=== PATIENT | male | born 1985 | race Caucasian/White ===

== ENCOUNTER → 2017-02-18 | Outpatient (CLI) | payer OTHER ==
[~2017-02-18] MED LIST: /METH500TA OR; ALBUTEROL INHALER INH; AMIT10TA2 PO; CETIRIZINE PO; CLON0.5T PO; CREON PO; CRES20TA OR; DULO20CA OR; FLEXERIL PO; LYRICA PO; PSEUDOEPHEDRINE PO; PULMOZYME INH; RELPAX PO; SIMV20TA2 OR; TOPI100T OR; TRAM100T OR; TRAM50TA2 OR; VOLT1GEL EX; ZITHTAB OR; [UNRECOGNIZED DRUG - OTHER] INH; [UNRECOGNIZED DRUG - OTHER] PO
--- NOTE | 2017-02-18 10:22 | REP ---
MR LUMBAR SPINE WITHOUT CONTRAST: HISTORY: Back pain. COMPARISON: 12/19/2011 There is no disc bulge or herniation at the L1-2 level. The L1 nerves exit the neural foramina without compression. A diffuse disc bulge is present at the L2-3 level. There is minimal compression of the thecal sac. The L2 nerve exit the neural foramina without compression. A diffuse disc bulge is present at the L3-4 level. There is minimal compression of the thecal sac. There is hypertrophy of the posterior articulating facets. The L3 nerves exit the neural foramina without compression. A diffuse disc bulge is present at the L4-5 level. There is minimal compression of the thecal sac. There is hypertrophy of the posterior articulating facets. The L4 nerves exit the neural foramina without compression. A diffuse disc bulge is present at the L5-S1 level. There is no thecal sac compression. There is hypertrophy of the posterior articulating facets. The L5 nerves exit the neural foramina without compression. The conus medullaris is normal in appearance terminating at the level of the L1 vertebral body. Normal signal intensity is present in the lumbar intervertebral discs and vertebral bodies. IMPRESSION: 1. Diffuse disc bulges at the L2-3 through L4-5 levels with minimal thecal sac compression. The disc bulge at the L2-3 level is a new finding. 2. Diffuse disc bulge at the L5-S1 level without thecal sac or nerve compression. There is no other significant change.? Signed by Ian Cortez MD 02/18/2017 10:25 A
== END ==
LOC: M RAD 07:31
PROVIDERS: ATTEND Physician Assistant Medical
DX: M51.26 Other intervertebral disc displacement, lumbar region (principal); M51.27 Other intervertebral disc displacement, lumbosacral region

== ENCOUNTER → 2017-03-13 | Outpatient (REF) | payer OTHER ==
[2017-03-13 13:59] LABS: ALBUMIN/GLOBULIN RATIO 1.21 (1.00-1.93); BILIRUBIN,DIRECT 0.1 MG/DL (0.0-0.2); BILIRUBIN,TOTAL 0.4 MG/DL (0.2-1.0); TOTAL PROTEIN 7.3 GM/DL (6.4-8.2)
[2017-03-13 14:04] LABS: BASO % 0.7 % (0.0-1.0); EOS # 0.1 K/mm3 (0.0-0.50); EOS % 1.4 % (0.0-3.0); LARGE UNSTAINED CELL # 0.2 K/mm3 (0.0-0.4); LYMPH # 2.5 K/mm3 (1.5-4.5); LYMPH % 33.7 % (24.0-44.0); MEAN CORPUSCULAR HEMOGLOBIN 31.2 pg (27.0-33.0); MEAN CORPUSCULAR HGB CONC 35.4 g/dl (32.0-36.5); MEAN CORPUSCULAR VOLUME 88.1 fl (80.0-96.0); MONO # 0.3 K/mm3 (0.0-0.8); MONO % 4.2 % (0.0-5.0); NEUTROPHILS # 4.3 K/mm3 (1.8-7.7); PLATELET COUNT, AUTOMATED 216 k/mm3 (150-450); WHITE BLOOD COUNT 7.4 K/mm3 (4.0-10.0)
[2017-03-13 14:10] LABS: ALBUMIN/GLOBULIN RATIO 1.25 (1.00-1.93); ALKALINE PHOSPHATASE 79 U/L (45-117); ALT/SGPT 73 U/L (12-78); ANION GAP 8 MEQ/L (8-16); AST/SGOT 29 U/L (15-37); BILIRUBIN,TOTAL 0.4 MG/DL (0.2-1.0); BLOOD UREA NITROGEN 14 MG/DL (7-18); CALCIUM LEVEL 8.5 MG/DL (8.5-10.1); CARBON DIOXIDE LEVEL 27 MEQ/L (21-32); CHLORIDE LEVEL 105 MEQ/L (98-107); CREATININE FOR GFR 0.88 MG/DL (0.70-1.30); FREE T4 0.93 NG/DL (0.76-1.46); GLOMERULAR FILTRATION RATE > 60.0 (>60); GLUCOSE, FASTING 83 MG/DL (70-105); POTASSIUM SERUM 4.3 MEQ/L (3.5-5.1); SODIUM LEVEL 140 MEQ/L (136-145); TOTAL PROTEIN 7.2 GM/DL (6.4-8.2)
== END ==
LOC: M SFHCPLAZ 10:58
PROVIDERS: ATTEND Physician Assistant Medical
DX: E78.2 Mixed hyperlipidemia (principal)

== ENCOUNTER → 2017-04-16 | Outpatient (REF) | payer OTHER ==
[~2017-04-16] MED LIST changes: +AMIT25TA PO; +ASPI81TA85 PO; +ATOR1TAB21 PO; +AZIT250T8 PO; +BUPR150T3 PO; +CICL0.7739; +FLUTISP; +KALY150T; +LIDO5TD TD; +LISI-542 PO; +MELO15TA4 PO; +NORCOTAB PO; +OMEP20CA3 PO; +PREG25CA PO; +PROAAER10 INH; +PULM1SOL INH; +TERB250T12; +TERB250T12 PO; +TIZA2TA PO; +ZOFR4TAB3 PO
== END ==
LOC: M SFHCPLAZ 11:12
PROVIDERS: ATTEND Physician Assistant Medical
DX: L73.9 Follicular disorder, unspecified (principal)

== ENCOUNTER → 2017-04-28 | Outpatient (REF) | payer OTHER | LOC: M SFHCPLAZ 11:32 | PROVIDERS: ATTEND Physician Assistant Medical | DX: L83 Acanthosis nigricans (principal); R23.4 Changes in skin texture ==

== ENCOUNTER → 2017-06-04 | Outpatient (REF) | payer OTHER | LOC: M SFHCPLAZ 12:38 | PROVIDERS: ATTEND Family Medicine | DX: L98.9 Disorder of the skin and subcutaneous tissue, unspecified (principal) ==

== ENCOUNTER → 2017-07-03 | Outpatient (REF) | payer OTHER ==
[2017-07-03 13:06] LABS: ALBUMIN/GLOBULIN RATIO 1.25 (1.00-1.93); BILIRUBIN,DIRECT 0.1 MG/DL (0.0-0.2); BILIRUBIN,TOTAL 0.3 MG/DL (0.2-1.0); TOTAL PROTEIN 7.2 GM/DL (6.4-8.2)
== END ==
LOC: M SFHCPLAZ 10:08
PROVIDERS: ATTEND Physician Assistant Medical
DX: I10 Essential (primary) hypertension (principal)

== ENCOUNTER 2017-07-18 15:33 | Emergency (ER) | payer OTHER ==
[~2017-07-18] VITALS: Ht 182.9 cm; Wt 138.6 kg
[~2017-07-18 15:33] MED LIST changes: -AMIT25TA PO; -ASPI81TA85 PO; -ATOR1TAB21 PO; -AZIT250T8 PO; -BUPR150T3 PO; -CICL0.7739; -FLUTISP; -KALY150T; -LIDO5TD TD; -LISI-542 PO; -MELO15TA4 PO; -NORCOTAB PO; -OMEP20CA3 PO; -PREG25CA PO; -PROAAER10 INH; -PULM1SOL INH; -TERB250T12; -TERB250T12 PO; -TIZA2TA PO; -ZOFR4TAB3 PO
[2017-07-18] MEDS ORDERED: MELO15TA4 PO (15:49)
[2017-07-18] MEDS ORDERED: LISI-542 PO (15:49)
[2017-07-18] MEDS ORDERED: CICL0.7739 (15:49)
[2017-07-18] MEDS ORDERED: TIZA2TA PO (15:49)
[2017-07-18] MEDS ORDERED: ATOR1TAB21 PO (15:49)
[2017-07-18] MEDS ORDERED: BUPR150T3 PO (15:49)
[2017-07-18] MEDS ORDERED: AMIT25TA PO (15:49)
[2017-07-18] MEDS ORDERED: PREG25CA PO (15:49)
[2017-07-18] MEDS ORDERED: TERB250T12 (15:49)
[2017-07-18] MEDS ORDERED: NS 1,000 ML IV ONE (18:15)
[2017-07-18] MEDS ORDERED: KETOROLAC 30 MG/ML VIAL (J1885) IV ONE (18:15)
[2017-07-18] MEDS ORDERED: ONDANSETRON 4MG/2ML VIAL (J2405) IV ONE (18:30)
[2017-07-18 18:56] LABS: BASO % 0.3 % (0.0-1.0); EOS # 0.1 10^3/uL (0.0-0.50); EOS % 0.8 % (0.0-3.0); IMMATURE GRANULOCYTE % 0.9 % (0-0); LYMPH # 2.4 10^3/uL (1.5-4.5); LYMPH % 21.1 % (24.0-44.0); MEAN CORPUSCULAR HEMOGLOBIN 30.5 pg (27.0-33.0); MEAN CORPUSCULAR HGB CONC 34.7 g/dl (32.0-36.5); MONO # 0.9 10^3/uL (0.0-0.8); MONO % 8.1 % (0.0-5.0); NEUTROPHILS % 68.8 % (36.0-66.0); PLATELET COUNT, AUTOMATED 225 10^3/uL (150-450); RED CELL DISTRIBUTION WIDTH 13.2 % (11.5-14.5); WHITE BLOOD COUNT 11.6 10^3/uL (4.0-10.0)
--- NOTE | 2017-07-18 19:10 | REPUSA ---
HISTORY: -RUQ PAIN. TECHNIQUE: Right upper quadrant ultrasound. FINDINGS: Liver is borderline enlarged with increased echogenic texture consistent with fatty liver, with no focal pathologic liver mass seen. No ascites is seen. Gallbladder and biliary tree are normal with no gallstones seen. Hines sign was negative. Gallblad alayna wall thickness measures 2 mm and common bile duct measures 2.8 mm. Pancreas is not well seen because of bowel gas. Right kidney is normal and measures 14.3 x 7.1 x 6.7 cm with no mass, calculus, or hydronephrosis seen. IMPRESSION: 1. Borderline hepatomegaly with hepatic steatosis, without focal liver mass or ascites s een. 2. The remainder of the right upper quadrant ultrasound examination is normal. .
[2017-07-18 19:19] LABS: ALBUMIN 3.9 GM/DL (3.2-5.2); ALBUMIN/GLOBULIN RATIO 1.15 (1.00-1.93); ALKALINE PHOSPHATASE 70 U/L (45-117); ALT/SGPT 49 U/L (12-78); AMYLASE 643 U/L (25-115); ANION GAP 7 MEQ/L (8-16); AST/SGOT 19 U/L (15-37); BILIRUBIN,DIRECT < 0.1 MG/DL (0.0-0.2); BILIRUBIN,TOTAL 0.3 MG/DL (0.2-1.0); BLOOD UREA NITROGEN 17 MG/DL (7-18); CALCIUM LEVEL 8.7 MG/DL (8.5-10.1); CARBON DIOXIDE LEVEL 28 MEQ/L (21-32); CHLORIDE LEVEL 103 MEQ/L (98-107); CREATININE FOR GFR 1.05 MG/DL (0.70-1.30); GLOMERULAR FILTRATION RATE > 60.0 (>60); GLUCOSE, FASTING 79 MG/DL (70-105); POTASSIUM SERUM 4.3 MEQ/L (3.5-5.1); SODIUM LEVEL 138 MEQ/L (136-145); TOTAL PROTEIN 7.3 GM/DL (6.4-8.2)
[2017-07-18] MEDS ORDERED: ISOVUE-370 76% 100ML VIAL (Q9967) As Ordered ONE (19:44)
[2017-07-18 19:53] VITALS: BP 122/67
[2017-07-18 20:08] LABS: CHOLESTEROL LEVEL 265 MG/DL (< 200); TRIGLYCERIDES LEVEL 300 MG/DL (<150)
[2017-07-18] MEDS ORDERED: LIDO5TD TD (20:35)
[2017-07-18] MEDS ORDERED: PROAAER10 INH (20:35)
[2017-07-18] MEDS ORDERED: AZIT250T8 PO (20:35)
[2017-07-18] MEDS ORDERED: FLUTISP (20:35)
[2017-07-18] MEDS ORDERED: ASPI81TA85 PO (20:35)
[2017-07-18] MEDS ORDERED: OMEP20CA3 PO (20:35)
[2017-07-18] MEDS ORDERED: ZOFR4TAB3 PO (20:57)
[2017-07-18] MEDS ORDERED: NORCOTAB PO (20:57)
[2017-07-18] MEDS ORDERED: NORCO 5/325MG TABLET (BULK FOR ED) PO ONE (21:00)
--- NOTE | 2017-07-19 07:27 | ED PDOC ---
Post-Departure Follow-Up radiology report faxed to essie Pardo Sarah MD Jul 19, 2017 07:27
--- NOTE | 2017-07-19 08:07 | ECGEPIP ---
Stationary ECG Study 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
--- NOTE | 2017-07-19 09:17 | REP ---
PA and lateral chest: Comparison is 11/15/2012. The lung patterson are clear. The cardiac size is normal The matthias, mediastinum, and bony thorax are unremarkable. Impression: Negative PA and lateral chest. There is a metallic device superimposed over the inferior cervical spine. No Signed by Alex Kaplan MD 07/19/2017 08:32 A
--- NOTE | 2017-07-19 14:59 | REP ---
Clinical: Upper abdominal pain. Pancreatitis. Technique: Axial contrast enhanced images from the lung bases to the pubic symphysis using 100 ml Isovue 370 intravenous contrast material with coronal and sagittal re-formations. Findings: Subtle peripancreatic inflammatory stranding surrounds the head/uncinate process and adjacent duodenum. The pancreas demonstrates normal homogeneous enhancement without evidence for necrosis or infarction. No peripancreatic pseudocyst, fluid collection or abscess identified. The gallbladder and biliary system appear normal. Mild hepatic steatosis suggested without focal hepatic lesion. Spleen, bilateral adrenal glands and kidneys are normal. The enteric system is without obstruction or acute inflammatory process. No oval terminal ileum and appendix identified in the right lower quadrant. Sigmoid diverticulosis noted without acute diverticulitis. Pelvis demonstrates normal bladder and age appropriate prostate/seminal vesicles. Small fat containing left inguinal hernia noted. No ascites. No free air. No significant retroperitoneal or intraperitoneal adenopathy. Abdominal aorta and vasculature appears normal. Surrounding musculoskeletal structures are intact. Lung bases are clear. Impression: 1. Findings suggest mild acute pancreatitis/duodenitis. 2. Hepatic steatosis without focal hepatic lesion. 3. Normal appearance of the gallbladder by CT evaluation. 4. Scattered sigmoid diverticula without acute diverticulitis. Signed by Ranjan Flores MD 07/19/2017 02:50 P
[2017-07-19] MEDS ORDERED: PULM1SOL INH (18:58)
[2017-07-19] MEDS ORDERED: KALY150T (18:58)
[2017-07-19] MEDS ORDERED: TERB250T12 PO (18:58)
== END 2017-07-18 21:12 | disposition home or self-care (01) ==
LOC: M ED 15:33
DX: R10.13 Epigastric pain (principal); K85.90 Acute pancreatitis without necrosis or infection, unspecified; E78.00 Pure hypercholesterolemia, unspecified; I10 Essential (primary) hypertension; G47.33 Obstructive sleep apnea (adult) (pediatric); Z79.899 Other long term (current) drug therapy; Z79.51 Long term (current) use of inhaled steroids
CPT/HCPCS: 71020; 74177; 76705; 80048; 80076; 81001; 82150; 82465; 82550; 82553; 83690; 84478; 85025; 93005; 96361; 96374; 96375; 99284; J1885; J2405; Q9967

== ENCOUNTER 2017-07-19 18:35 | Emergency (ER) | payer OTHER ==
[~2017-07-19] VITALS: Ht 180.3 cm; Wt 138.6 kg
[~2017-07-19 18:35] MED LIST changes: +AMIT25TA PO; +ASPI81TA85 PO; +ATOR1TAB21 PO; +AZIT250T8 PO; +BUPR150T3 PO; +CICL0.7739; +FLUTISP; +LIDO5TD TD; +LISI-542 PO; +MELO15TA4 PO; +NORCOTAB PO; +OMEP20CA3 PO; +PREG25CA PO; +PROAAER10 INH; +TERB250T12; +TIZA2TA PO; +ZOFR4TAB3 PO
[2017-07-19] MEDS ORDERED: PULM1SOL INH (18:58)
[2017-07-19] MEDS ORDERED: TERB250T12 PO (18:58)
[2017-07-19] MEDS ORDERED: KALY150T (18:58)
[2017-07-19] MEDS ORDERED: KETOROLAC 30 MG/ML VIAL (J1885) IV ONE (19:30)
[2017-07-19] MEDS ORDERED: ONDANSETRON 4MG/2ML VIAL (J2405) IV ONE (19:30)
[2017-07-19 19:44] LABS: BASO % 0.4 % (0.0-1.0); EOS # 0.1 10^3/uL (0.0-0.50); IMMATURE GRANULOCYTE % 0.7 % (0-0); LYMPH # 1.9 10^3/uL (1.5-4.5); LYMPH % 22.6 % (24.0-44.0); MEAN CORPUSCULAR HEMOGLOBIN 29.9 pg (27.0-33.0); MEAN CORPUSCULAR HGB CONC 34.1 g/dl (32.0-36.5); MEAN CORPUSCULAR VOLUME 87.7 fl (80.0-96.0); MONO # 0.6 10^3/uL (0.0-0.8); MONO % 7.1 % (0.0-5.0); NEUTROPHILS # 5.8 10^3/uL (1.8-7.7); NEUTROPHILS % 68.2 % (36.0-66.0); PLATELET COUNT, AUTOMATED 200 10^3/uL (150-450); RED CELL DISTRIBUTION WIDTH 13.2 % (11.5-14.5); WHITE BLOOD COUNT 8.4 10^3/uL (4.0-10.0)
[2017-07-19 20:13] LABS: ALBUMIN/GLOBULIN RATIO 1.33 (1.00-1.93); ALKALINE PHOSPHATASE 68 U/L (45-117); ALT/SGPT 41 U/L (12-78); AMYLASE 331 U/L (25-115); ANION GAP 7 MEQ/L (8-16); AST/SGOT 15 U/L (15-37); BILIRUBIN,DIRECT 0.2 MG/DL (0.0-0.2); BILIRUBIN,TOTAL 0.6 MG/DL (0.2-1.0); BLOOD UREA NITROGEN 8 MG/DL (7-18); CALCIUM LEVEL 8.4 MG/DL (8.5-10.1); CARBON DIOXIDE LEVEL 30 MEQ/L (21-32); CHLORIDE LEVEL 102 MEQ/L (98-107); CREATININE FOR GFR 1.02 MG/DL (0.70-1.30); GLOMERULAR FILTRATION RATE > 60.0 (>60); GLUCOSE, FASTING 78 MG/DL (70-105); POTASSIUM SERUM 4.1 MEQ/L (3.5-5.1); SODIUM LEVEL 139 MEQ/L (136-145)
[2017-07-19 20:55] VITALS: BP 113/69
== END 2017-07-19 20:56 | disposition home or self-care (01) ==
LOC: M ED 18:35
DX: K85.90 Acute pancreatitis without necrosis or infection, unspecified (principal)
CPT/HCPCS: 80048; 80076; 82150; 83690; 85025; 96374; 96375; 99284; J1885; J2405

== ENCOUNTER → 2017-07-22 | Outpatient (REF) | payer OTHER ==
[~2017-07-22] MED LIST changes: +KALY150T; +PULM1SOL INH; +TERB250T12 PO
[2017-07-22 16:16] LABS: ALBUMIN 3.9 GM/DL (3.2-5.2); ALBUMIN/GLOBULIN RATIO 1.26 (1.00-1.93); ALKALINE PHOSPHATASE 71 U/L (45-117); ALT/SGPT 55 U/L (12-78); AMYLASE 107 U/L (25-115); ANION GAP 7 MEQ/L (8-16); AST/SGOT 28 U/L (15-37); BILIRUBIN,TOTAL 0.4 MG/DL (0.2-1.0); BLOOD UREA NITROGEN 6 MG/DL (7-18); CALCIUM LEVEL 9.5 MG/DL (8.5-10.1); CARBON DIOXIDE LEVEL 31 MEQ/L (21-32); CHLORIDE LEVEL 103 MEQ/L (98-107); CREATININE FOR GFR 1.02 MG/DL (0.70-1.30); GLOMERULAR FILTRATION RATE > 60.0 (>60); GLUCOSE, FASTING 102 MG/DL (70-105); POTASSIUM SERUM 4.4 MEQ/L (3.5-5.1); SODIUM LEVEL 141 MEQ/L (136-145)
[2017-07-22 16:30] LABS: BASO % 0.5 % (0.0-1.0); EOS # 0.1 10^3/uL (0.0-0.50); EOS % 1.7 % (0.0-3.0); IMMATURE GRANULOCYTE % 1.1 % (0-0); LYMPH # 2.1 10^3/uL (1.5-4.5); LYMPH % 28.2 % (24.0-44.0); MEAN CORPUSCULAR HEMOGLOBIN 30.3 pg (27.0-33.0); MEAN CORPUSCULAR HGB CONC 34.3 g/dl (32.0-36.5); MEAN CORPUSCULAR VOLUME 88.3 fl (80.0-96.0); MONO # 0.6 10^3/uL (0.0-0.8); MONO % 8.4 % (0.0-5.0); NEUTROPHILS # 4.5 10^3/uL (1.8-7.7); NEUTROPHILS % 60.1 % (36.0-66.0); PLATELET COUNT, AUTOMATED 237 10^3/uL (150-450); RED CELL DISTRIBUTION WIDTH 12.9 % (11.5-14.5); WHITE BLOOD COUNT 7.5 10^3/uL (4.0-10.0)
== END ==
LOC: M SFHCPLAZ 13:47
PROVIDERS: ATTEND Physician Assistant Medical
DX: K85.90 Acute pancreatitis without necrosis or infection, unspecified (principal)

== ENCOUNTER → 2017-09-30 | Outpatient (REF) | payer OTHER ==
[2017-09-30 20:16] LABS: LIPASE 238 U/L (73-393)
== END ==
LOC: M SFHCPLAZ 15:37
DX: K85.90 Acute pancreatitis without necrosis or infection, unspecified (principal)
CPT/HCPCS: 83690

== ENCOUNTER → 2018-02-10 | Outpatient (CLI) | payer OTHER | LOC: M PAIN 11:15 | DX: M53.3 Sacrococcygeal disorders, not elsewhere classified (principal); G62.9 Polyneuropathy, unspecified; G89.29 Other chronic pain; G43.109 Migraine with aura, not intractable, without status migrainosus; F32.9 Major depressive disorder, single episode, unspecified; F41.9 Anxiety disorder, unspecified; F43.20 Adjustment disorder, unspecified; J30.89 Other allergic rhinitis; R25.1 Tremor, unspecified; F17.220 Nicotine dependence, chewing tobacco, uncomplicated; R06.83 Snoring; Z79.899 Other long term (current) drug therapy; Z88.8 Allergy status to other drugs, medicaments and biological substances | CPT/HCPCS: G0463 ==

== ENCOUNTER → 2018-03-22 | Outpatient (CLI) | payer OTHER ==
[~2018-03-22] MED LIST changes: -/METH500TA OR; -ALBUTEROL INHALER INH; -AMIT10TA2 PO; -AMIT25TA PO; -ASPI81TA85 PO; -ATOR1TAB21 PO; -AZIT250T8 PO; +BUPIVACAINE HCL 0.25% 30 ML VIAL As Ordered; -BUPR150T3 PO; -CETIRIZINE PO; -CICL0.7739; -CLON0.5T PO; -CREON PO; -CRES20TA OR; -DULO20CA OR; -FLEXERIL PO; -FLUTISP; +ISOVUE-M 300 61% 15ML VIAL (Q9967) As Ordered; -KALY150T; -LIDO5TD TD; +LIDOCAINE 1% SDV INJ 30 ML VIAL As Ordered; -LISI-542 PO; -LYRICA PO; -MELO15TA4 PO; -NORCOTAB PO; -OMEP20CA3 PO; -PREG25CA PO; -PROAAER10 INH; -PSEUDOEPHEDRINE PO; -PULM1SOL INH; -PULMOZYME INH; -RELPAX PO; -SIMV20TA2 OR; -TERB250T12; -TERB250T12 PO; -TIZA2TA PO; -TOPI100T OR; -TRAM100T OR; -TRAM50TA2 OR; +TRIAMCINOLONE ACETONIDE SUSP 40 MG/ML VIAL (J3301) As Ordered; -VOLT1GEL EX; -ZITHTAB OR; -ZOFR4TAB3 PO; -[UNRECOGNIZED DRUG - OTHER] INH; -[UNRECOGNIZED DRUG - OTHER] PO; +diazePAM 5 MG TAB As Ordered; +oxyCODONE 5MG TAB As Ordered
== END ==
LOC: M PAIN 08:30
DX: G89.29 Other chronic pain (principal); M46.1 Sacroiliitis, not elsewhere classified; G43.119 Migraine with aura, intractable, without status migrainosus; F32.89 Other specified depressive episodes; F41.9 Anxiety disorder, unspecified; J30.9 Allergic rhinitis, unspecified; F17.290 Nicotine dependence, other tobacco product, uncomplicated; Z79.899 Other long term (current) drug therapy; Z88.8 Allergy status to other drugs, medicaments and biological substances
CPT/HCPCS: J3301

== ENCOUNTER → 2018-05-12 | Outpatient (CLI) | payer OTHER | LOC: M PAIN 10:45 | DX: M53.3 Sacrococcygeal disorders, not elsewhere classified (principal); G62.9 Polyneuropathy, unspecified; G43.709 Chronic migraine without aura, not intractable, without status migrainosus; F32.9 Major depressive disorder, single episode, unspecified; F41.9 Anxiety disorder, unspecified; E84.9 Cystic fibrosis, unspecified; R25.1 Tremor, unspecified; Z88.8 Allergy status to other drugs, medicaments and biological substances | CPT/HCPCS: G0463 ==

== ENCOUNTER → 2018-07-16 | Outpatient (CLI) | payer OTHER | LOC: M PAIN 08:45 | DX: M47.27 Other spondylosis with radiculopathy, lumbosacral region (principal); G89.29 Other chronic pain; G43.109 Migraine with aura, not intractable, without status migrainosus; F32.89 Other specified depressive episodes; F41.9 Anxiety disorder, unspecified; R25.1 Tremor, unspecified; F17.220 Nicotine dependence, chewing tobacco, uncomplicated; Z79.891 Long term (current) use of opiate analgesic; Z79.899 Other long term (current) drug therapy; Z88.8 Allergy status to other drugs, medicaments and biological substances | CPT/HCPCS: G0463 ==

== ENCOUNTER → 2018-07-30 | Outpatient (CLI) | payer OTHER ==
[~2018-07-30] MED LIST changes: -diazePAM 5 MG TAB As Ordered; -oxyCODONE 5MG TAB As Ordered
== END ==
LOC: M PAIN 13:00
DX: G89.29 Other chronic pain (principal); M47.816 Spondylosis without myelopathy or radiculopathy, lumbar region; M47.817 Spondylosis without myelopathy or radiculopathy, lumbosacral region; G43.909 Migraine, unspecified, not intractable, without status migrainosus; F32.9 Major depressive disorder, single episode, unspecified; F41.9 Anxiety disorder, unspecified; J30.9 Allergic rhinitis, unspecified; F17.220 Nicotine dependence, chewing tobacco, uncomplicated; E66.01 Morbid (severe) obesity due to excess calories; Z68.42 Body mass index [BMI] 45.0-49.9, adult; Z79.899 Other long term (current) drug therapy; Z79.891 Long term (current) use of opiate analgesic; Z88.8 Allergy status to other drugs, medicaments and biological substances; Z86.69 Personal history of other diseases of the nervous system and sense organs
CPT/HCPCS: J3301

== ENCOUNTER → 2018-08-26 | Outpatient (CLI) | payer OTHER | LOC: M PAIN 09:45 | DX: M47.27 Other spondylosis with radiculopathy, lumbosacral region (principal); G43.909 Migraine, unspecified, not intractable, without status migrainosus; F32.9 Major depressive disorder, single episode, unspecified; F41.9 Anxiety disorder, unspecified; J30.9 Allergic rhinitis, unspecified; F17.220 Nicotine dependence, chewing tobacco, uncomplicated; E66.01 Morbid (severe) obesity due to excess calories; Z68.41 Body mass index [BMI] 40.0-44.9, adult; Z79.899 Other long term (current) drug therapy; Z88.8 Allergy status to other drugs, medicaments and biological substances | CPT/HCPCS: G0463 ==

== ENCOUNTER → 2018-11-16 | Outpatient (CLI) | payer OTHER ==
[~2018-11-16] MED LIST changes: +/METH500TA OR; +ALBUTEROL INHALER INH; +AMIT10TA2 PO; +AMIT25TA PO; +ASPI81TA85 PO; +ATOR1TAB21 PO; +AZIT-10 PO; -BUPIVACAINE HCL 0.25% 30 ML VIAL As Ordered; +BUPR150T3 PO; +CETIRIZINE PO; +CICL0.7739; +CLON0.5T PO; +CREON PO; +CRES20TA OR; +DULO20CA OR; +FLEXERIL PO; +FLUTISP; -ISOVUE-M 300 61% 15ML VIAL (Q9967) As Ordered; +KALY150T; +LIDO5TD TD; -LIDOCAINE 1% SDV INJ 30 ML VIAL As Ordered; +LISI-542 PO; +LYRICA PO; +MELO15TA28 PO; +NORCOTAB PO; +OMEP20CA3 PO; +PREG25CA PO; +PROAAER10 INH; +PSEUDOEPHEDRINE PO; +PULM1SOL INH; +PULMOZYME INH; +RELPAX PO; +SIMV20TA2 OR; +TERB250T12; +TERB250T12 PO; +TIZA2TA PO; +TOPI100T OR; +TRAM100T OR; +TRAM50TA2 OR; -TRIAMCINOLONE ACETONIDE SUSP 40 MG/ML VIAL (J3301) As Ordered; +VOLT1GEL EX; +ZITHTAB OR; +ZOFR4TAB14 PO; +[UNRECOGNIZED DRUG - OTHER] INH; +[UNRECOGNIZED DRUG - OTHER] PO
--- NOTE | 2018-11-29 00:57 | ECWPNPC ---
PATIENT NAME: KRYSTLE LOONEY : 1985 GENDER: MALE VISIT DATE: 11/16/2018 DISCHARGE DATE: 11/16/18 1611 VISIT LOCKED DATE TIME: PHYSICIAN: MARINA ALLISON RESOURCE: MARINA ALLISON REASON FOR APPOINTMENT 1. 6-8WKS HISTORY OF PRESENT ILLNESS HISTORY OF PRESENT ILLNESS: HERE FOR F/UOF CHRONIC LOW BACK PAIN.PAIN ANG ESCALATED OVER THE PAST MONTH.RATING PAIN VAS 4-9/10.DESCRIBES PAIN CONSTANT ACHING WITH INTERMITTENT STABBING. PAIN THE PATIENT DESCRIBES THE PAIN... FALL RISK SCREENING: SCREENING : NO FALLS IN THE PAST YEAR. CURRENT MEDICATIONS TAKING LIPITOR 20 MG TABLET 1 TABLET ORALLY ONCE A DAY TAKING [facility] FLUTICASONE PROPIONATE 50 MCG/ACT SUSPENSION 1 SPRAY IN EACH NOSTRIL NASALLY ONCE A DAY TAKING KALYDECO 150 MG TABLET 1 TABLET ORALLY TWICE DAILY TAKING TIZANIDINE HCL 2 MG TABLET 1 TABLET NEEDED - TAKES 1/2 TABLET DAILY ORALLY THREE TIMES A DAY TAKING LISINOPRIL 5 MG TABLET DIRECTED ORALLY DAILY TAKING ZITHROMAX 250 MG TABLET 1 TABLET ORALLY ONCE A DAY TAKING HIBICLENS 4 % LIQUID 1 CAPFUL WHEN SHOWER ALL OVER BODY, SCALP EXTERNALLY DAILY TAKING ALBUTEROL SULFATE HFA 108 (90 BASE) MCG/ACT AEROSOL SOLUTION 2 PUFFS INHALATION EVERY 4-6 HOURS NEEDED TAKING LIDOCAINE 5 % PATCH 1 PATCH TO INTACT SKIN REMOVE AFTER 12 HOURS EXTERNALLY ONCE A DAY 12 HRS ON AND 12 HRS OFF TAKING ALEVE 220 MG TABLET 1 TABLET WITH FOOD OR MILK NEEDED ORALLY EVERY 12 HRS TAKING WRIST SPLINT RIGHT WRIST NEEDED TAKING ACCUTANE 40 MGS 1 TAB ORAL DAILY TAKING FLUOXETINE HCL 10 MG CAPSULE 1 CAPSULE IN THE MORNING ORALLY ONCE A DAY TAKING LYRICA 200 MG CAPSULE 1 CAPSULE ORALLY BID MDD2 TAKING MULTI VITAMIN W/D-3 - TABLET 2 TABLETS ORALLY ONCE A DAY DISCONTINUED VOLTAREN 1 % GEL GEL EXTERNALLY ONCE A DAY NEEDED DISCONTINUED WRIST SPLINT/COCK-UP/RIGHT L - MISCELLANEOUS DIRECTED _ BEFORE BEDTIME, NOTES: DUPLICATE DISCONTINUED WRIST SPLINT/COCK-UP/LEFT L - MISCELLANEOUS DIRECTED RIGHT WRIST BEFORE BEDTIME DISCONTINUED CLINDAMYCIN PHOS & CLEANSER 1 % KIT EXTERNALLY DIRECTED DISCONTINUED MOBIC 15 MG TABLET 1 TABLET ORALLY DAILY DISCONTINUED CLINDAMYCIN HCL 150 MG CAPSULE 2 CAPSULES ORALLY EVERY 8 HRS DISCONTINUED IBUPROFEN 200 MG TABLET 1 TABLET WITH FOOD OR MILK NEEDED ORALLY THREE TIMES A DAY DISCONTINUED CLINDAMYCIN HCL 300 MG CAPSULE 1 CAPSULE ORALLY EVERY 8 HRS MEDICATION LIST REVIEWED AND RECONCILED WITH THE PATIENT PAST MEDICAL HISTORY CLASSIC MIGRAINE WITH AURA ATYPICAL DEPRESSIVE DISORDER/ANXIETY/ADJUSTMENT DISORDER ATTENTION DEFICIT DISORDER WITHOUT HYPERACTIVITY CERVICAL RADICULOPATHY/NEURITIS C5-6( SINCE 2007 ON DISABILITY) CHRONIC BACK PAIN CARPAL TUNNEL SYNDROME - LEFT HAND ALLERGIC RHINITIS 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 TO LINEZOLIDE AND CLINDAMYCIN ONLY 2016 PANCREATITIS ALLERGIES AMITRIPTYLINE HCL: EXCESSIVE SOMNOLENCE: SIDE EFFECTS SURGICAL HISTORY DISC REPLACED C5-6 2008 BILATERAL INGUINAL HERNIA REPAIR 1989 CARPAL TUNNEL REPAIR LEFT 04/2018 FAMILY HISTORY FATHER: ALIVE 62 YRS, NO KNOWN MEDICAL PROBLEMS MOTHER: ALIVE 60 YRS, HYPOGLYCEMIA, DEPRESSION,, DIAGNOSED WITH PSYCHIATRIC CONDITIONS SIBLINGS: BRO- KIDNEY PROBLEM PATERNAL GRAND FATHER: , UNKNOWN PATERNAL GRAND MOTHER: , STROKE MATERNAL GRAND FATHER: , HEART ATTACK MULTIPLE, CKD, PROSTATE CANCER, DM TYOE 2 MATERNAL GRAND MOTHER: , PANCREATIC CANCER MATERNAL UNCLE: HTN MATERNAL AUNT: DM, 1 BROTHER(S) , 2 SISTER(S) . SOCIAL HISTORY GENERAL: TOBACCO USE ARE YOU A:USES TOBACCO IN OTHER FORMS ADDITIONAL FINDINGS: TOBACCO USERCHEWS TOBACCO SMOKING CESSATION INFORMATION GIVEN11/16/2018 VAPORNO E-CIGARETTENO BMI CARE GOAL FOLLOW-UP ABOVE NORMAL BMI FOLLOW-UPEXERCISE PROMOTION: STRENGTH TRAINING ABOVE NORMAL BMI FOLLOW-UPEXERCISE PROMOTION: STRENGTH TRAINING ALCOHOL SCREENING DID YOU HAVE A DRINK CONTAINING ALCOHOL IN THE PAST YEAR?YES POINTS2 INTERPRETATIONNEGATIVE DID YOU HAVE A DRINK CONTAINING ALCOHOL IN THE PAST YEAR?YES DID YOU HAVE A DRINK CONTAINING ALCOHOL IN THE PAST YEAR?YES POINTS2 POINTS2 INTERPRETATIONNEGATIVE INTERPRETATIONNEGATIVE DID YOU HAVE A DRINK CONTAINING ALCOHOL IN THE PAST YEAR?YES POINTS2 INTERPRETATIONNEGATIVE HOW OFTEN DID YOU HAVE A DRINK CONTAINING ALCOHOL IN THE PAST YEAR?MONTHLY OR LESS (1 POINT) HOW MANY DRINKS DID YOU HAVE ON A TYPICAL DAY WHEN YOU WERE DRINKING IN THE PAST YEAR?3 OR 4 (1 POINT) HOW OFTEN DID YOU HAVE SIX OR MORE DRINKS ON ONE OCCASION IN THE PAST YEAR?NEVER (0 POINTS) RECREATIONAL DRUG USE DRUG USE? NONE DRUG USE? NONE CAFFEINE CAFFEINE USE?NO CAFFEINE USE?NO SEXUAL HX HAD SEX IN THE LAST 12 MONTHS (VAGINAL, ORAL, OR ANAL)?YES HAD SEX IN THE LAST 12 MONTHS (VAGINAL, ORAL, OR ANAL)?YES WITHWOMEN ONLY WITHWOMEN ONLY HAVE YOU EVER HAD AN STD?NO HAVE YOU EVER HAD AN STD?NO HAD SEX IN THE LAST 12 MONTHS (VAGINAL, ORAL, OR ANAL)?YES WITHWOMEN ONLY HAVE YOU EVER HAD AN STD?NO HIV / HEP-C SCREENING HIV TEST OFFERED TO PATIENT:YES DATE OFFERED:03/03/2017 TEST ACCEPTED:NO HEP-C TEST OFFERED TO PATIENT:YES DATE OFFERED:03/03/2017 REASON:PATIENT DECLINED TEST ACCEPTED:NO REASON:PATIENT DECLINED HIV TEST OFFERED TO PATIENT:YES DATE OFFERED:03/03/2017 TEST ACCEPTED:NO HEP-C TEST OFFERED TO PATIENT:YES DATE OFFERED:03/03/2017 REASON:PATIENT DECLINED TEST ACCEPTED:NO REASON:PATIENT DECLINED SIKHISM [id number] RELIGIOUS LANGUAGE LANGUAGES SPOKEN:BULGARIAN EDUCATION BACHELOR- MATH, BACHELOR- MATH, BACHELOR- MATH, BACHELOR- MATH, BACHELOR- MATH, BACHELOR- MATH. LEARNING BARRIERS / SPECIAL NEEDS CHANGE FROM LAST VISIT?NO BARRIERS TO LEARNING?NO HEARING IMPAIRED?NO VISION IMPAIRED?YES :CORRECTIVE LENSES COGNITIVELY IMPAIRED?NO READINESS TO LEARN?YES LEARNING PREFERENCES?NO LEARNING CAPABILITIES PRESENT?YES EMOTIONAL BARRIERS?NO SPECIAL DEVICES?NO HAZARDOUS MATERIAL SPECIALIST NEEDED?NO DOMESTIC VIOLENCE DO YOU FEEL SAFE IN YOUR ENVIRONMENT?YES OCCUPATION: [employer], MOVED BACK FROM [employer] WORKED IN [employer], , [employer], MOVED BACK FROM [employer] WORKED IN [employer], . DIET: REGULAR , LOW FAT, LOW CHOLESTEROL, CARBOHYDRATE CONTROLLED, REGULAR , LOW FAT, LOW CHOLESTEROL, CARBOHYDRATE CONTROLLED. EXERCISE: NO REGULAR EXERCISE, WALKS, NO REGULAR EXERCISE, WALKS. MARITAL STATUS: , . OTHERS AT HOME: SPOUSE, , SPOUSE, . PAIN CLINIC PFS, CLERGY, PUBLIC HEALTH REFERRALS PFS REFERRAL NEEDED?NO CLERGY REFERRAL NEEDED?NO PUBLIC HEALTH REFERRAL NEEDED?NO WAS THE PROVIDER NOTIFIED OF ANY PERTINENT INFO? N/A HAS THE PATIENT BEEN EDUCATED REGARDING HIS/HER PLAN OF CARE?YES HAS THE PATIENT BEEN EDUCATED REGARDING PAIN, THE RISK FOR PAIN, THE IMPORTANCE OF EFFECTIVE PAIN MANAGEMENT, AND THE PAIN ASSESSMENT PROCESS?YES HOUSING: OWNS HOME, , OWNS HOME, . 11/29/18 1015 REVIEWED WITH PT. AD11/16/18 REVIEWED WITH PT. AD. HOSPITALIZATION/MAJOR DIAGNOSTIC PROCEDURE [place] 2008 HERNIA REPAIR 1988 REVIEW OF SYSTEMS REVIEWED BY: PROVIDER: MARINA OSWALD . CONSTITUTIONAL: ANY CHANGE IN YOUR MEDICAL CONDITION? NO . CHILLS NO . FEVER NO . INFECTION: DO YOU HAVE NEW INFECTIONS? NO . DO YOU HAVE HISTORY OF MRSA? NO . MUSCULOSKELETAL: ANY NEW PATTERNS OF PAIN OR NUMBNESS? NO . GASTROENTEROLOGY: ANY NEW CHANGE IN BOWEL CONTROL? NO . GENITOURINARY: ANY NEW CHANGE IN BLADDER CONTROL? NO . IS THERE A CHANCE YOU COULD BE ? NO . HEMATOLOGY/LYMPH: DO YOU TAKE ANY BLOOD THINNERS? (FOR EXAMPLE- COUMADIN, PLAVIX, AGGRENOX, PLATEL, PRADAXA, OR XARELTO) NO . WHEN WAS YOUR LAST DOSE? DATE: TIME: . NEUROLOGY: HAVE YOU FALLEN IN THE PAST 12 MONTHS? NO . ANY NEW EXTREMITY NUMBNESS OR WEAKNESS? NO . CARDIOLOGY: DO YOU HAVE A PACEMAKER OR DEFIBRILLATOR? NO . RESPIRATORY: HAVE YOU BEEN SICK IN THE PAST WEEK? NO . FEVER NO . FLU LIKE SYMPTOMS? NO . COUGH NO . INTEGUMENTARY: DO YOU HAVE ANY RASHES OR OPEN SORES? NO . ALLERGIC/IMMUNO: ARE YOU ALLERGIC TO IV DYE? NO . ANY NEW ALLERGIES? NO . PSYCHIATRIC: DO YOU HAVE THOUGHTS OF HURTING YOURSELF OR SOMEONE ELSE? NO . ARE YOU ABUSED, NEGLECTED, OR IN AN UNSAFE ENVIRONMENT? NO . ENDOCRINOLOGY: ARE YOU DIABETIC? NO . OTHER: DO YOU NEED ANY PRESCRIPTIONS? YES . IF YES, PLEASE LIST: TIZANIDINE . ANY NEW PROBLEMS WITH YOUR MEDICATIONS? NO . WHEN DID YOU LAST EAT? ____ . WHEN DID YOU LAST DRINK? ____ . WHAT DID YOU LAST DRINK? ____ . NAME OF PERSON DRIVING YOU HOME? ____ . DO YOU HAVE ANY OTHER QUESTIONS OR CONCERNS YES, LOW BACK, LEFT HIP AND LEG PAIN HAVE INCREASED. NUEROPATHY IN LEFT THIGH IS BURNING. GREAT TOES ARE TINGLING BILATERALLY . VITAL SIGNS WT 311 LBS, HT 70.5 IN, BMI 43.99 INDEX, BP 129/65 MM HG, HR 76 /MIN, RR 16 /MIN, TEMP 98.2 F, OXYGEN SAT % 96, SAFE IN ENV? (Y/N) Y, REVIEWED BY: AD. EXAMINATION GENERAL EXAMINATION: GENERAL APPEARANCE:AWAKE,ALERT ,PLEAASANT . PSYCHAFFECT NORMAL . LUNGS:LUNG SUÁREZ ARE CLEAR TO AUSCULTATION BILATERALLY. GOOD MOVEMENT OF AIR . HEART:S1, S2 IN A REGULAR RATE AND RHYTHM. NO SIGNIFICANT MURMURS, RUBS OR GALLOPS NOTED . LUMBAR SACRAL SPINEPALPATION: + FOR PAIN OVER L/S SPINE. + FOR PAIN OVER L/S PARASPINALS . NEUROLOGIC EXAM:NORMAL SENSATION LIGHT TOUCH BILAT. LOWER EXTREMITIES . DIAGNOSTIC TESTS REVIEWEDMRI L/S [id number]-REVIEWED. ASSESSMENTS LUMBOSACRAL SPONDYLOSIS WITH RADICULOPATHY - M47.27 (PRIMARY) TREATMENT LUMBOSACRAL SPONDYLOSIS WITH RADICULOPATHY START TRAMADOL HCL TABLET, 50 MG, 1-2 TAB, ORALLY, EVERY 6 HRS MDD4, 30 DAY(S), 60, REFILLS 1 CONTINUE LYRICA CAPSULE, 200 MG, 1 CAPSULE, ORALLY, BID MDD2 NOTES: L4/5 LESI INTRALAMINAR,LUMBAR EPIDURAL INJECTION: RECOVERY AT HOME MATERIAL WAS PRINTED,WHAT IS LUMBAR EPIDURAL INJECTION? MATERIAL WAS PRINTED,LUMBAR EPIDURAL INJECTION: YOUR PROCEDURE MATERIAL WAS PRINTED. PREVENTIVE MEDICINE PAIN CLINIC TEACHING: MEDICATIONS PRINTED INFORMATION ON TRAMADOL GIVEN TO AND REVIEWED WITH PT. AND HE VERBALIZED UNDERSTANDING. AD. PROCEDURE TEACHING PRINTED INFORMATION GIVEN TO AND REVIEWED WITH PT ON EPIDURAL INJECITON ALONG WITH PRE-PROCEDURE INSTRUCTIONS AND PT. VERBALIZED UNDERSTANDING. PT STATED IN THE PAST HE HAS NOT STOPPED ANY MEDICATIONS PRIOR TO THE PROCEDURE. AD. PROCEDURE CODES FA211 ESTABILISHED PATIENT [facility] CHARGE DISPOSITION & COMMUNICATION FOLLOW UP POST (REASON: L4/5 LESI INTRALAMINAR) ELECTRONICALLY SIGNED BY MARGRET WEBER ON 11/28/2018 AT 04:11 PM EST DISCLAIMER : THIS IS A VISIT SUMMARY EXTRACTED FROM THE [employer] CHART. IT IS NOT A COPY OF THE [employer] PROGRESS NOTE. PINA
== END ==
LOC: M PAIN 14:45
PROVIDERS: ATTEND Nurse Practitioner Family
DX: M47.27 Other spondylosis with radiculopathy, lumbosacral region (principal); G89.29 Other chronic pain; G43.109 Migraine with aura, not intractable, without status migrainosus; Z86.59 Personal history of other mental and behavioral disorders; J30.9 Allergic rhinitis, unspecified; E84.9 Cystic fibrosis, unspecified; R25.1 Tremor, unspecified; F17.220 Nicotine dependence, chewing tobacco, uncomplicated; Z88.8 Allergy status to other drugs, medicaments and biological substances; E66.01 Morbid (severe) obesity due to excess calories; Z68.41 Body mass index [BMI] 40.0-44.9, adult; Z79.899 Other long term (current) drug therapy

== ENCOUNTER → 2019-01-18 | Outpatient (CLI) | payer OTHER ==
[~2019-01-18] MED LIST changes: -/METH500TA OR; +CYMB1CAP4 OR; -DULO20CA OR; +HYDR-3715 PO; +METH1TAB40 OR; -NORCOTAB PO
--- NOTE | 2019-01-31 00:13 | ECWPNPC ---
PATIENT NAME: KRYSTLE LOONEY : 1985 GENDER: MALE VISIT DATE: 01/18/2019 DISCHARGE DATE: 01/18/19 1057 VISIT LOCKED DATE TIME: PHYSICIAN: MARINA ALLISON RESOURCE: MARINA ALLISON REASON FOR APPOINTMENT 1. POST PROC HISTORY OF PRESENT ILLNESS HISTORY OF PRESENT ILLNESS: HERE FOR POST PROCEDURE F/U.HAD L4/5 LESI ON 12/07/18.REPORTING RESOLUTION OF LEFT LEG PAIN POST PROCEDURE THAT CONTINUES TODAY.REPORTING 2 WEEKS MARKED REDUCTION IN LOW BACK PAIN.RATING PAIN VAS 4/10.DESCRIBES LOW BACK PAIN CONTINUOUS,ACHING AND SHARP.CONTINUES WITH SIGNIFICANT NEUROPATHY SYMPTOMS IN HANDS AND FEET. PAIN THE PATIENT DESCRIBES THE PAIN... FALL RISK SCREENING: SCREENING :NO FALLS REPORTED IN THE LAST YEAR CURRENT MEDICATIONS TAKING LIPITOR 20 MG TABLET 1 TABLET ORALLY ONCE A DAY TAKING [facility] FLUTICASONE PROPIONATE 50 MCG/ACT SUSPENSION 1 SPRAY IN EACH NOSTRIL NASALLY ONCE A DAY TAKING KALYDECO 150 MG TABLET 1 TABLET ORALLY TWICE DAILY TAKING TIZANIDINE HCL 2 MG TABLET 1 TABLET NEEDED - TAKES 1/2 TABLET DAILY ORALLY THREE TIMES A DAY TAKING LISINOPRIL 5 MG TABLET DIRECTED ORALLY DAILY TAKING ZITHROMAX 250 MG TABLET 1 TABLET ORALLY ONCE A DAY TAKING HIBICLENS 4 % LIQUID 1 CAPFUL WHEN SHOWER ALL OVER BODY, SCALP EXTERNALLY DAILY TAKING ALBUTEROL SULFATE HFA 108 (90 BASE) MCG/ACT AEROSOL SOLUTION 2 PUFFS INHALATION EVERY 4-6 HOURS NEEDED TAKING LIDOCAINE 5 % PATCH 1 PATCH TO INTACT SKIN REMOVE AFTER 12 HOURS EXTERNALLY ONCE A DAY 12 HRS ON AND 12 HRS OFF TAKING WRIST SPLINT RIGHT WRIST NEEDED TAKING ACCUTANE 40 MGS 1 TAB ORAL DAILY TAKING FLUOXETINE HCL 10 MG CAPSULE 1 CAPSULE IN THE MORNING ORALLY ONCE A DAY TAKING MULTI VITAMIN W/D-3 - TABLET 2 TABLETS ORALLY ONCE A DAY TAKING TRAMADOL HCL 50 MG TABLET 1-2 TAB ORALLY EVERY 6 HRS MDD4 TAKING LYRICA 200 MG CAPSULE 1 CAPSULE ORALLY BID MDD2 NOT-TAKING ALEVE 220 MG TABLET 1 TABLET WITH FOOD OR MILK NEEDED ORALLY EVERY 12 HRS MEDICATION LIST REVIEWED AND RECONCILED WITH THE PATIENT PAST MEDICAL HISTORY CLASSIC MIGRAINE WITH AURA ATYPICAL DEPRESSIVE DISORDER/ANXIETY/ADJUSTMENT DISORDER ATTENTION 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 TO LINEZOLIDE AND CLINDAMYCIN ONLY 2016 PANCREATITIS ALLERGIES AMITRIPTYLINE HCL: EXCESSIVE SOMNOLENCE - SIDE EFFECTS SURGICAL HISTORY DISC REPLACED C5-6 2008 BILATERAL INGUINAL HERNIA REPAIR 1989 CARPAL TUNNEL REPAIR LEFT 04/2018 FAMILY HISTORY FATHER: ALIVE 62 YRS, NO KNOWN MEDICAL PROBLEMS MOTHER: ALIVE 60 YRS, HYPOGLYCEMIA, DEPRESSION,, DIAGNOSED WITH PSYCHIATRIC CONDITIONS SIBLINGS: BRO- KIDNEY PROBLEM PATERNAL GRAND FATHER: , UNKNOWN PATERNAL GRAND MOTHER: , STROKE MATERNAL GRAND FATHER: , HEART ATTACK MULTIPLE, CKD, PROSTATE CANCER, DM TYOE 2 MATERNAL GRAND MOTHER: , PANCREATIC CANCER MATERNAL UNCLE: HTN MATERNAL AUNT: DM, 1 BROTHER(S) , 2 SISTER(S) . SOCIAL HISTORY GENERAL: TOBACCO USE ARE YOU A:USES TOBACCO IN OTHER FORMS ADDITIONAL FINDINGS: TOBACCO USERCHEWS TOBACCO SMOKING CESSATION INFORMATION GIVEN01/18/2019 VAPORNO E-CIGARETTENO LATEX QUESTIONNAIRE LATEX ALLERGY : HAVE YOU EVER DEVELOPED ANY TYPE OF REACTION AFTER HANDLING LATEX PRODUCTS SUCH RUBBER GLOVES, CONDOMS, DIAPHRAGMS, BALLOONS, SOCKS, OR UNDERWEAR?NO LATEX ALLERGY : HAVE YOU EVER DEVELOPED ANY TYPE OF REACTION DURING OR AFTER DENTAL APPOINTMENT, VAGINAL/RECTAL EXAMINATION, SURGICAL PROCEDURE, OR ANY OTHER EXPOSURE?NO LATEX RISK : HAVE YOU EVER HAD ANY DIFFICULTY BREATHING OR HIVES AFTER EATING OR HANDLING ANY FRUITS, OR VEGETABLES; SUCH KIWI, BANANAS, STONE FRUITS, OR CHESTNUTSNO LATEX RISK : DO YOU HAVE A PREVIOUS PERSONAL HISTORY OF MORE THAN NINE SURGERIES, SPINA BIFIDA, OR REPEATED CATHERTIZATIONS? NO LATEX RISK : ARE YOU FREQUENTLY EXPOSED TO LATEX PRODUCTS IN YOUR OCCUPATION?NO DATE ASKED : 12/07/2018 BMI CARE GOAL FOLLOW-UP ABOVE NORMAL BMI FOLLOW-UPEXERCISE PROMOTION: STRENGTH TRAINING ALCOHOL SCREENING DID YOU HAVE A DRINK CONTAINING ALCOHOL IN THE PAST YEAR?YES POINTS2 INTERPRETATIONNEGATIVE HOW OFTEN DID YOU HAVE A DRINK CONTAINING ALCOHOL IN THE PAST YEAR?MONTHLY OR LESS (1 POINT) HOW MANY DRINKS DID YOU HAVE ON A TYPICAL DAY WHEN YOU WERE DRINKING IN THE PAST YEAR?3 OR 4 (1 POINT) HOW OFTEN DID YOU HAVE SIX OR MORE DRINKS ON ONE OCCASION IN THE PAST YEAR?NEVER (0 POINTS) RECREATIONAL DRUG USE DRUG USE? NONE CAFFEINE CAFFEINE USE?NO SEXUAL HX HAD SEX IN THE LAST 12 MONTHS (VAGINAL, ORAL, OR ANAL)?: YES, WITH: WOMEN ONLY, HAVE YOU EVER HAD AN STD?: NO, HAD SEX IN THE LAST 12 MONTHS (VAGINAL, ORAL, OR ANAL)?: YES, WITH: WOMEN ONLY, HAVE YOU EVER HAD AN STD?: NO, HAD SEX IN THE LAST 12 MONTHS (VAGINAL, ORAL, OR ANAL)?: YES, WITH: WOMEN ONLY, HAVE YOU EVER HAD AN STD?: NO, HAD SEX IN THE LAST 12 MONTHS (VAGINAL, ORAL, OR ANAL)?: YES, WITH: WOMEN ONLY, HAVE YOU EVER HAD AN STD?: NO, HAD SEX IN THE LAST 12 MONTHS (VAGINAL, ORAL, OR ANAL)?: YES, WITH: WOMEN ONLY, HAVE YOU EVER HAD AN STD?: NO, HAD SEX IN THE LAST 12 MONTHS (VAGINAL, ORAL, OR ANAL)?: YES, WITH: WOMEN ONLY, HAVE YOU EVER HAD AN STD?: NO. HIV / HEP-C SCREENING HIV TEST OFFERED TO PATIENT:YES DATE OFFERED:03/03/2017 TEST ACCEPTED:NO REASON:PATIENT DECLINED HEP-C TEST OFFERED TO PATIENT:YES DATE OFFERED:03/03/2017 TEST ACCEPTED:NO REASON:PATIENT DECLINED CONGREGATION [id number] RESTORATIONISM LANGUAGE LANGUAGES SPOKEN:[place]EN[place]IC EDUCATION BACHELOR- MATH, BACHELOR- MATH, BACHELOR- MATH, BACHELOR- MATH, BACHELOR- MATH, BACHELOR- MATH. LEARNING BARRIERS / SPECIAL NEEDS CHANGE FROM LAST VISIT?NO BARRIERS TO LEARNING?NO HEARING IMPAIRED?NO VISION IMPAIRED?YES :CORRECTIVE LENSES COGNITIVELY IMPAIRED?NO READINESS TO LEARN?YES LEARNING PREFERENCES?NO LEARNING CAPABILITIES PRESENT?YES EMOTIONAL BARRIERS?NO SPECIAL DEVICES?NO SUPERVISOR CARPENTERS NEEDED?NO DOMESTIC VIOLENCE DO YOU FEEL SAFE IN YOUR ENVIRONMENT?YES OCCUPATION: [employer] C[employer], MOVED BACK FROM [facility] WORKED IN [employer], , [employer] CENTER, MOVED BACK FROM [facility] WORKED IN [employer], . DIET: REGULAR , LOW FAT, LOW CHOLESTEROL, CARBOHYDRATE CONTROLLED, REGULAR , LOW FAT, LOW CHOLESTEROL, CARBOHYDRATE CONTROLLED. EXERCISE: NO REGULAR EXERCISE, WALKS, NO REGULAR EXERCISE, WALKS. MARITAL STATUS: , . OTHERS AT HOME: SPOUSE, , SPOUSE, . PAIN CLINIC PFS, CLERGY, PUBLIC HEALTH REFERRALS PFS REFERRAL NEEDED?NO CLERGY REFERRAL NEEDED?NO PUBLIC HEALTH REFERRAL NEEDED?NO WAS THE PROVIDER NOTIFIED OF ANY PERTINENT INFO? N/A HAS THE PATIENT BEEN EDUCATED REGARDING HIS/HER PLAN OF CARE?YES HAS THE PATIENT BEEN EDUCATED REGARDING PAIN, THE RISK FOR PAIN, THE IMPORTANCE OF EFFECTIVE PAIN MANAGEMENT, AND THE PAIN ASSESSMENT PROCESS?YES HOUSING: OWNS HOME, , OWNS HOME, . ADVANCE DIRECTIVE ADVANCE DIRECTIVE DISCUSSED WITH PATIENT:YES PT HAS HCP-- TANIA [phone] FORM IS ON FILE 08/26/18 1015 REVIEWED WITH PT. AD11/16/18 REVIEWED WITH PT. JOSELIN WITH PATIENT 12/07/18 7814 JS. HOSPITALIZATION/MAJOR DIAGNOSTIC PROCEDURE [place], [place] 2008 HERNIA REPAIR 1988 REVIEW OF SYSTEMS REVIEWED BY: PROVIDER: MARINA OSWALD . CONSTITUTIONAL: ANY CHANGE IN YOUR MEDICAL CONDITION? NO . CHILLS NO . FEVER NO . INFECTION: DO YOU HAVE NEW INFECTIONS? NO . DO YOU HAVE HISTORY OF MRSA? NO . MUSCULOSKELETAL: ANY NEW PATTERNS OF PAIN OR NUMBNESS? YES, RIGHT HIP PAIN RESOLVED THEN LBP. PT C/O BILAT HAND AND FOOT PAIN AND BILAT KNEE PAIN . GASTROENTEROLOGY: ANY NEW CHANGE IN BOWEL CONTROL? NO . GENITOURINARY: ANY NEW CHANGE IN BLADDER CONTROL? NO . IS THERE A CHANCE YOU COULD BE ? NO . HEMATOLOGY/LYMPH: DO YOU TAKE ANY BLOOD THINNERS? (FOR EXAMPLE- COUMADIN, PLAVIX, AGGRENOX, PLATEL, PRADAXA, OR XARELTO) NO . WHEN WAS YOUR LAST DOSE? DATE: TIME: . NEUROLOGY: HAVE YOU FALLEN IN THE PAST 12 MONTHS? NO . ANY NEW EXTREMITY NUMBNESS OR WEAKNESS? YES, BILAT HAND AND FOOT PAIN . CARDIOLOGY: DO YOU HAVE A PACEMAKER OR DEFIBRILLATOR? NO . RESPIRATORY: HAVE YOU BEEN SICK IN THE PAST WEEK? NO . FEVER NO . FLU LIKE SYMPTOMS? NO . COUGH NO . INTEGUMENTARY: DO YOU HAVE ANY RASHES OR OPEN SORES? NO . ALLERGIC/IMMUNO: ARE YOU ALLERGIC TO IV DYE? NO . ANY NEW ALLERGIES? NO . PSYCHIATRIC: DO YOU HAVE THOUGHTS OF HURTING YOURSELF OR SOMEONE ELSE? NO . ARE YOU ABUSED, NEGLECTED, OR IN AN UNSAFE ENVIRONMENT? NO . ENDOCRINOLOGY: ARE YOU DIABETIC? NO . OTHER: DO YOU NEED ANY PRESCRIPTIONS? YES, MUSCLE RALAXER . IF YES, PLEASE LIST: ____ . ANY NEW PROBLEMS WITH YOUR MEDICATIONS? NO . WHEN DID YOU LAST EAT? ____ . WHEN DID YOU LAST DRINK? ____ . WHAT DID YOU LAST DRINK? ____ . NAME OF PERSON DRIVING YOU HOME? ____ . DO YOU HAVE ANY OTHER QUESTIONS OR CONCERNS YES, HORRIBLE ACHES IN FEET HANDS AND LOW BACK . VITAL SIGNS WT 316.6 LBS, HT 70.5 IN, BMI 44.78 INDEX, BP 155/78 MM HG, HR 69 /MIN, RR 18 /MIN, TEMP 97.6 F, OXYGEN SAT % 96%, NA INITIALS SC 10:15, REVIEWED BY: EM. EXAMINATION GENERAL EXAMINATION: GENERAL APPEARANCE: AWAKE,ALERT ,PLEAASANT . PSYCH AFFECT NORMAL . LUNGS: LUNG SUÁREZ ARE CLEAR TO AUSCULTATION BILATERALLY. GOOD MOVEMENT OF AIR . HEART: S1, S2 IN A REGULAR RATE AND RHYTHM. NO SIGNIFICANT MURMURS, RUBS OR GALLOPS NOTED . LUMBAR SACRAL SPINEPALPATION:TENDER OVER BILAT. L4/5-L5/S1 LUMBAR FACETS WITH FACET LOADING.. DIAGNOSTIC TESTS REVIEWED MRI L/S SPINE-02/18/17. ASSESSMENTS LUMBOSACRAL SPONDYLOSIS WITH RADICULOPATHY - M47.27 (PRIMARY) NEUROPATHY - G62.9 TREATMENT LUMBOSACRAL SPONDYLOSIS WITH RADICULOPATHY NOTES: BILAT L4/5-L5/S1 DX LFB. [facility]:NEUROPATHIC PAIN HANDS/FEET PROCEDURE CODES FA211 ESTABILISHED PATIENT [facility] FACILITY CHARGE DISPOSITION & COMMUNICATION FOLLOW UP POST (REASON: BILAT L4/5-L5/S1 DX LFB) ELECTRONICALLY SIGNED BY MARGRET WEBER ON 01/30/2019 AT 12:15 PM EDT DISCLAIMER : THIS IS A VISIT SUMMARY EXTRACTED FROM THE [employer] CHART. IT IS NOT A COPY OF THE [employer] PROGRESS NOTE. PINA
== END ==
LOC: M PAIN 10:15
PROVIDERS: ATTEND Nurse Practitioner Family
DX: M47.27 Other spondylosis with radiculopathy, lumbosacral region (principal); G62.9 Polyneuropathy, unspecified; G43.909 Migraine, unspecified, not intractable, without status migrainosus; F17.220 Nicotine dependence, chewing tobacco, uncomplicated; E66.01 Morbid (severe) obesity due to excess calories; Z68.41 Body mass index [BMI] 40.0-44.9, adult; Z88.8 Allergy status to other drugs, medicaments and biological substances; Z79.891 Long term (current) use of opiate analgesic; Z79.899 Other long term (current) drug therapy; Z86.59 Personal history of other mental and behavioral disorders

== ENCOUNTER → 2019-03-10 | Outpatient (CLI) | payer OTHER ==
[~2019-03-10] MED LIST changes: +BUPIVACAINE HCL 0.25% 30 ML VIAL As Ordered ONE; +ISOVUE-M 300 61% 15ML VIAL (Q9967) As Ordered ONE; +LIDOCAINE 1% SDV INJ 30 ML VIAL As Ordered ONE
--- NOTE | 2019-03-11 07:32 | REP ---
Partial lumbar spine series: Two views . History: Injection procedure for pain. 57 seconds of fluoroscopy time is reported. Findings: A sequence of 2 fluoroscopically obtained last image hold procedural spot radiographs of the lumbar spine document needle position and contrast injection associated with injection procedure. Electronically Signed by Dallas Rivera MD 03/10/2019 03:45 P
--- NOTE | 2019-03-19 23:18 | ECWPNPC ---
PATIENT NAME: KRYSTLE LOONEY : 1985 GENDER: MALE VISIT DATE: 03/10/2019 DISCHARGE DATE: 03/10/19 1536 VISIT LOCKED DATE TIME: PHYSICIAN: PRAKASH SMITH MD RESOURCE: PRAKASH SMITH MD REASON FOR APPOINTMENT 1. BILAT L4/5-L5/S1 DX LFB HISTORY OF PRESENT ILLNESS HISTORY OF PRESENT ILLNESS: PAIN THE PATIENT DESCRIBES THE PAIN... FALL RISK SCREENING: SCREENING :NO FALLS REPORTED IN THE LAST YEAR CURRENT MEDICATIONS TAKING LIPITOR 20 MG TABLET 1 TABLET ORALLY ONCE A DAY, NOTES: 03/07/19 TAKING [facility] FLUTICASONE PROPIONATE 50 MCG/ACT SUSPENSION 1 SPRAY IN EACH NOSTRIL NASALLY ONCE A DAY, NOTES: YESTERDAY AM TAKING KALYDECO 150 MG TABLET 1 TABLET ORALLY TWICE DAILY, NOTES: 03/09/19 PM TAKING TIZANIDINE HCL 2 MG TABLET 1 TABLET NEEDED - TAKES 1/2 TABLET DAILY ORALLY THREE TIMES A DAY, NOTES: NONE RECENT TAKING LISINOPRIL 5 MG TABLET DIRECTED ORALLY DAILY, NOTES: 03/07/19 TAKING ZITHROMAX 250 MG TABLET 1 TABLET ORALLY ONCE A DAY, NOTES: 03/09/19 AM TAKING ALBUTEROL SULFATE HFA 108 (90 BASE) MCG/ACT AEROSOL SOLUTION 2 PUFFS INHALATION EVERY 4-6 HOURS NEEDED, NOTES: 2 WEEKS AGO TAKING LIDOCAINE 5 % PATCH 1 PATCH TO INTACT SKIN REMOVE AFTER 12 HOURS EXTERNALLY ONCE A DAY 12 HRS ON AND 12 HRS OFF, NOTES: 2 WEEKS AGO TAKING WRIST SPLINT RIGHT WRIST NEEDED TAKING ACCUTANE 40 MGS 1 TAB ORAL DAILY, NOTES: 1 MONTH AGO TAKING FLUOXETINE HCL 10 MG CAPSULE 1 CAPSULE IN THE MORNING ORALLY ONCE A DAY, NOTES: 03/09/19 AM TAKING MULTI VITAMIN W/D-3 - TABLET 2 TABLETS ORALLY ONCE A DAY, NOTES: 1 MONTH AGO TAKING TRAMADOL HCL 50 MG TABLET 1-2 TAB ORALLY EVERY 6 HRS MDD4, NOTES: 2 WEEKS AGO TAKING LYRICA 200 MG CAPSULE 1 CAPSULE ORALLY BID MDD2, NOTES: 03/09/19PM TAKING MAY HAVE - - TUMERIC 2 CAPSULE NOT-TAKING HIBICLENS 4 % LIQUID 1 CAPFUL WHEN SHOWER ALL OVER BODY, SCALP EXTERNALLY DAILY NOT-TAKING ALEVE 220 MG TABLET 1 TABLET WITH FOOD OR MILK NEEDED ORALLY EVERY 12 HRS MEDICATION LIST REVIEWED AND RECONCILED WITH THE PATIENT PAST MEDICAL HISTORY CLASSIC MIGRAINE WITH AURA ATYPICAL DEPRESSIVE DISORDER/ANXIETY/ADJUSTMENT DISORDER ATTENTION 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 TO LINEZOLIDE AND CLINDAMYCIN ONLY 2016 PANCREATITIS ALLERGIES AMITRIPTYLINE HCL: EXCESSIVE SOMNOLENCE - SIDE EFFECTS SURGICAL HISTORY DISC REPLACED C5-6 2008 BILATERAL INGUINAL HERNIA REPAIR 1989 CARPAL TUNNEL REPAIR LEFT 04/2018 RIGHT CARPAL TUNNEL REPAIR 01/2019 FAMILY HISTORY FATHER: ALIVE 62 YRS, NO KNOWN MEDICAL PROBLEMS MOTHER: ALIVE 60 YRS, HYPOGLYCEMIA, DEPRESSION,, DIAGNOSED WITH PSYCHIATRIC CONDITIONS SIBLINGS: BRO- KIDNEY PROBLEM PATERNAL GRAND FATHER: , UNKNOWN PATERNAL GRAND MOTHER: , STROKE MATERNAL GRAND FATHER: , HEART ATTACK MULTIPLE, CKD, PROSTATE CANCER, DM TYOE 2 MATERNAL GRAND MOTHER: , PANCREATIC CANCER MATERNAL UNCLE: HTN MATERNAL AUNT: DM, 1 BROTHER(S) , 2 SISTER(S) . SOCIAL HISTORY GENERAL: TOBACCO USE ARE YOU A:USES TOBACCO IN OTHER FORMS ADDITIONAL FINDINGS: TOBACCO USERCHEWS TOBACCO SMOKING CESSATION INFORMATION GIVEN01/18/2019 VAPORNO E-CIGARETTENO HIV / HEP-C SCREENING HIV TEST OFFERED TO PATIENT:YES DATE OFFERED:03/03/2017 TEST ACCEPTED:NO REASON:PATIENT DECLINED HEP-C TEST OFFERED TO PATIENT:YES DATE OFFERED:03/03/2017 TEST ACCEPTED:NO REASON:PATIENT DECLINED OTHERS AT HOME: SPOUSE, , SPOUSE,. HOUSING: OWNS HOME, , OWNS HOME,. EDUCATION BACHELOR- MATH, BACHELOR- MATH, BACHELOR- MATH, BACHELOR- MATH, BACHELOR- MATH, BACHELOR- MATH. DIET: REGULAR , LOW FAT, LOW CHOLESTEROL, CARBOHYDRATE CONTROLLED, REGULAR , LOW FAT, LOW CHOLESTEROL, CARBOHYDRATE CONTROLLED. LANGUAGE LANGUAGES SPOKEN:PASHTO DOMESTIC VIOLENCE DO YOU FEEL SAFE IN YOUR ENVIRONMENT?YES BMI CARE GOAL FOLLOW-UP ABOVE NORMAL BMI FOLLOW-UPEXERCISE PROMOTION: STRENGTH TRAINING RECREATIONAL DRUG USE DRUG USE? NONE EXERCISE: NO REGULAR EXERCISE, WALKS, NO REGULAR EXERCISE, WALKS. LEARNING BARRIERS / SPECIAL NEEDS CHANGE FROM LAST VISIT?NO BARRIERS TO LEARNING?NO HEARING IMPAIRED?NO VISION IMPAIRED?YES :CORRECTIVE LENSES COGNITIVELY IMPAIRED?NO READINESS TO LEARN?YES LEARNING PREFERENCES?NO LEARNING CAPABILITIES PRESENT?YES EMOTIONAL BARRIERS?NO SPECIAL DEVICES?NO VICE PRESIDENT QUALITY IMPROVEMENT NEEDED?NO PAIN CLINIC PFS, CLERGY, PUBLIC HEALTH REFERRALS PFS REFERRAL NEEDED?NO CLERGY REFERRAL NEEDED?NO PUBLIC HEALTH REFERRAL NEEDED?NO WAS THE PROVIDER NOTIFIED OF ANY PERTINENT INFO? N/A HAS THE PATIENT BEEN EDUCATED REGARDING HIS/HER PLAN OF CARE?YES HAS THE PATIENT BEEN EDUCATED REGARDING PAIN, THE RISK FOR PAIN, THE IMPORTANCE OF EFFECTIVE PAIN MANAGEMENT, AND THE PAIN ASSESSMENT PROCESS?YES LATEX QUESTIONNAIRE LATEX ALLERGY : HAVE YOU EVER DEVELOPED ANY TYPE OF REACTION AFTER HANDLING LATEX PRODUCTS SUCH RUBBER GLOVES, CONDOMS, DIAPHRAGMS, BALLOONS, SOCKS, OR UNDERWEAR?NO LATEX ALLERGY : HAVE YOU EVER DEVELOPED ANY TYPE OF REACTION DURING OR AFTER DENTAL APPOINTMENT, VAGINAL/RECTAL EXAMINATION, SURGICAL PROCEDURE, OR ANY OTHER EXPOSURE?NO LATEX RISK : HAVE YOU EVER HAD ANY DIFFICULTY BREATHING OR HIVES AFTER EATING OR HANDLING ANY FRUITS, OR VEGETABLES; SUCH KIWI, BANANAS, STONE FRUITS, OR CHESTNUTSNO LATEX RISK : DO YOU HAVE A PREVIOUS PERSONAL HISTORY OF MORE THAN NINE SURGERIES, SPINA BIFIDA, OR REPEATED CATHERTIZATIONS? NO LATEX RISK : ARE YOU FREQUENTLY EXPOSED TO LATEX PRODUCTS IN YOUR OCCUPATION?NO DATE ASKED : 12/07/2018 CAFFEINE CAFFEINE USE?NO ADVANCE DIRECTIVE ADVANCE DIRECTIVE DISCUSSED WITH PATIENT:YES PT HAS HCP-- TANIA [phone] FORM IS ON FILE VOODOO [id number] TAOISM MARITAL STATUS: , . ALCOHOL SCREENING DID YOU HAVE A DRINK CONTAINING ALCOHOL IN THE PAST YEAR?YES POINTS2 INTERPRETATIONNEGATIVE HOW OFTEN DID YOU HAVE A DRINK CONTAINING ALCOHOL IN THE PAST YEAR?MONTHLY OR LESS (1 POINT) HOW MANY DRINKS DID YOU HAVE ON A TYPICAL DAY WHEN YOU WERE DRINKING IN THE PAST YEAR?3 OR 4 (1 POINT) HOW OFTEN DID YOU HAVE SIX OR MORE DRINKS ON ONE OCCASION IN THE PAST YEAR?NEVER (0 POINTS) OCCUPATION: [employer] CENTER, MOVED BACK FROM [facility] [employer] WORKED IN [employer], , [employer], MOVED BACK FROM [facility] [employer] WORKED IN [employer],. SEXUAL HX HAD SEX IN THE LAST 12 MONTHS (VAGINAL, ORAL, OR ANAL)?: YES, WITH: WOMEN ONLY, HAVE YOU EVER HAD AN STD?: NO, HAD SEX IN THE LAST 12 MONTHS (VAGINAL, ORAL, OR ANAL)?: YES, WITH: WOMEN ONLY, HAVE YOU EVER HAD AN STD?: NO, HAD SEX IN THE LAST 12 MONTHS (VAGINAL, ORAL, OR ANAL)?: YES, WITH: WOMEN ONLY, HAVE YOU EVER HAD AN STD?: NO, HAD SEX IN THE LAST 12 MONTHS (VAGINAL, ORAL, OR ANAL)?: YES, WITH: WOMEN ONLY, HAVE YOU EVER HAD AN STD?: NO, HAD SEX IN THE LAST 12 MONTHS (VAGINAL, ORAL, OR ANAL)?: YES, WITH: WOMEN ONLY, HAVE YOU EVER HAD AN STD?: NO, HAD SEX IN THE LAST 12 MONTHS (VAGINAL, ORAL, OR ANAL)?: YES, WITH: WOMEN ONLY, HAVE YOU EVER HAD AN STD?: NO. 08/26/18 1015 REVIEWED WITH PT. AD11/16/18 REVIEWED WITH PT. NIKIAWED WITH PATIENT 12/07/18 1239 JS REVIEWED WITH PT 03/10/19 1416 BV. HOSPITALIZATION/MAJOR DIAGNOSTIC PROCEDURE [place], [place] 2008 HERNIA REPAIR 1988 REVIEW OF SYSTEMS REVIEWED BY: PROVIDER: . CONSTITUTIONAL: ANY CHANGE IN YOUR MEDICAL CONDITION? NO . CHILLS NO . FEVER NO . INFECTION: DO YOU HAVE NEW INFECTIONS? NO . DO YOU HAVE HISTORY OF MRSA? NO . MUSCULOSKELETAL: ANY NEW PATTERNS OF PAIN OR NUMBNESS? NO . GASTROENTEROLOGY: ANY NEW CHANGE IN BOWEL CONTROL? NO . GENITOURINARY: ANY NEW CHANGE IN BLADDER CONTROL? NO . IS THERE A CHANCE YOU COULD BE ? NO . HEMATOLOGY/LYMPH: DO YOU TAKE ANY BLOOD THINNERS? (FOR EXAMPLE- COUMADIN, PLAVIX, AGGRENOX, PLATEL, PRADAXA, OR XARELTO) NO . WHEN WAS YOUR LAST DOSE? DATE: TIME: . NEUROLOGY: HAVE YOU FALLEN IN THE PAST 12 MONTHS? NO . ANY NEW EXTREMITY NUMBNESS OR WEAKNESS? NO . CARDIOLOGY: DO YOU HAVE A PACEMAKER OR DEFIBRILLATOR? NO . RESPIRATORY: HAVE YOU BEEN SICK IN THE PAST WEEK? NO . FEVER NO . FLU LIKE SYMPTOMS? NO . COUGH NO . INTEGUMENTARY: DO YOU HAVE ANY RASHES OR OPEN SORES? NO . ALLERGIC/IMMUNO: ARE YOU ALLERGIC TO IV DYE? NO . ANY NEW ALLERGIES? NO . PSYCHIATRIC: DO YOU HAVE THOUGHTS OF HURTING YOURSELF OR SOMEONE ELSE? NO . ARE YOU ABUSED, NEGLECTED, OR IN AN UNSAFE ENVIRONMENT? NO . ENDOCRINOLOGY: ARE YOU DIABETIC? NO . OTHER: DO YOU NEED ANY PRESCRIPTIONS? NO . IF YES, PLEASE LIST: ____ . ANY NEW PROBLEMS WITH YOUR MEDICATIONS? NO . WHEN DID YOU LAST EAT? 03/09/191999 . WHEN DID YOU LAST DRINK? 03/10/19 0800 . WHAT DID YOU LAST DRINK? PEPSI . NAME OF PERSON DRIVING YOU HOME? TANIA- . DO YOU HAVE ANY OTHER QUESTIONS OR CONCERNS NO . VITAL SIGNS WT 317.2 LBS, HT 70.5 IN, BMI 44.87 INDEX, BP 118/67 MM HG, HR 85 /MIN, RR 18 /MIN, TEMP 99.1 F, OXYGEN SAT % 97%, NA INITIALS SC 13:58, REVIEWED BY: BV. ASSESSMENTS SPONDYLOSIS OF LUMBAR REGION WITHOUT MYELOPATHY OR RADICULOPATHY - M47.816 (PRIMARY) SPONDYLOSIS OF LUMBOSACRAL REGION WITHOUT MYELOPATHY OR RADICULOPATHY - M47.817 PROCEDURES PN LUMBAR FACET BLOCK DIAGNOSTIC PRE PROCEDURE DIAGNOSIS LUMBAR SPONDYLOSIS, LUMBOSACRAL SPONDYLOSIS POST PROCEDURE DIAGNOSIS LUMBAR SPONDYLOSIS, LUMBOSACRAL SPONDYLOSIS PROCEDURE BILATERAL L4-L5 AND BILATERAL L5-S1 FACET BLOCK DIAGNOSTIC NUMBER [address] PRAKASH SMITH OIL FIRE SPECIALIST NONE ANESTHESIA LOCAL PRE PROCEDURE NOTE THE PATIENT WITH HISTORY OF CHRONIC LOW BACK PAIN. I EVALUATED THE PATIENT AND REVIEWED THE CHART. I WENT OVER THE RISKS, ALTERNATIVES, AND BENEFITS ASSOCIATED WITH THIS PROCEDURE. THE PATIENT WOULD LIKE TO PROCEED AND GAVE CONSENT TO PERFORM THE PROCEDURE. AGREED WITH THE PATIENT WE ARE DOING THIS PROCEDURE TO DETERMINE IF THE PATIENT IS A CANDIDATE FOR A RADIOFREQUENCY ABLATION OF THE FACETS JOINTS. THE PATIENT DENIES UNEXPLAINABLE WEIGHT LOSS, FEVER, CHILLS, OR NEW CHANGES IN URINARY OR BOWEL CONTROL DESCRIPTION OF PROCEDURE THE PATIENT WAS BROUGHT TO THE PROCEDURE ROOM AND PLACED IN THE PRONE POSITION. THE LUMBOSACRAL AREA WAS CLEANED WITH CHLORAPREP SOLUTION AND DRAPED ASEPTICALLY. THE PROCEDURE WAS DONE UNDER STERILE CONDITIONS. I CHECKED LATERALITY AND THE LEVEL WHERE THE PROCEDURE WAS GOING TO BE PERFORMED WITH THE PATIENT AND THE SUPPORTING STAFF AT THE MOMENT OF THE TIME OUT IN THE PROCEDURE ROOM. UNDER FLUOROSCOPIC GUIDANCE, TARGETS WERE SELECTED AT THE INTERSECTION OF THE RIGHT AND LEFT TRANSVERSE PROCESS OF L4, L5 AND ALA OF S1 WITH ITS RESPECTIVE SUPERIOR ARTICULAR PROCESS. LIDOCAINE WAS USED TO NUMB THE SKIN AND THE SUBCUTANEOUS TISSUE BELOW IT. SPINAL NEEDLE, 22-GAUGE WAS ADVANCED UNDER FLUOROSCOPIC GUIDANCE AND FOLLOWING PATIENT FEEDBACK UNTIL THE TARGETS WERE REACHED. POSITION OF THE NEEDLES WAS VERIFIED WITH AP AND LATERAL VIEWS. AFTER PROPER POSITION OF THE NEEDLES WAS ACHIEVED, ISOVUE-M DYE 30% 0.1 ML WAS INJECTED AT EACH SITE SHOWING ADEQUATE SPREAD OF THE DYE. THEN A SOLUTION OF 0.4 ML OF BUPIVACAINE 0.25% WAS INJECTED AT EACH SITE. THERE WAS NO EVIDENCE OF BLOOD, PARESTHESIA OR CEREBROSPINAL FLUID DURING THE PROCEDURE. THE PATIENT WAS SENT TO THE RECOVERY ROOM. THE PATIENT WAS MOVING THE EXTREMITIES AND DOING WELL. THERE WAS NO COMPLICATION DURING THE PROCEDURE. FLUOROSCOPY TIME WAS 57 SECONDS POST PROCEDURE NOTE THE PATIENT WILL DOCUMENT HIS PAIN LEVEL AND RESPONSE TO THIS PROCEDURE EVERY 30 MINUTES. THE PATIENT WILL BE SEEN IN A FOLLOW UP IN THE NEXT FEW WEEKS. FURTHER DETERMINATION FOR HIS CASE WILL BE DONE AT THE NEXT VISIT. INSTRUCTIONS WERE GIVEN, QUESTIONS WERE ANSWERED, AND THE PATIENT EXPRESSED UNDERSTANDING AND AGREED WITH THE PLAN. I, JANICE ROCHA, DOCUMENTED THE ABOVE INFORMATION ACTING A SCRIBE FOR DR. SMITH. I HAVE REVIEWED THE ABOVE DOCUMENT, WRITTEN BY JANICE ALCALAIBTara AND I VERIFY THAT IT IS ACCURATE. [facility] FACET BLOCK (PAIN)[id number] PROCEDURE CODES 6045F RADXPS [id number] PXD [id number] INJ PARAVERT F JNT L/S 1 LEV, MODIFIERS: 50 [id number] INJ PARAVERT F JNT L/S 2 LEV, MODIFIERS: 50 DISPOSITION & COMMUNICATION FOLLOW UP 3 WEEKS ELECTRONICALLY SIGNED BY PRAKASH SMITH MD, MD ON 03/19/2019 AT 06:23 PM EDT DISCLAIMER : THIS IS A VISIT SUMMARY EXTRACTED FROM THE [employer] CHART. IT IS NOT A COPY OF THE [employer] PROGRESS NOTE. MTDD
== END ==
LOC: M PAIN 13:45
PROVIDERS: ATTEND Anesthesiology
DX: M47.816 Spondylosis without myelopathy or radiculopathy, lumbar region (principal); M47.817 Spondylosis without myelopathy or radiculopathy, lumbosacral region; F32.9 Major depressive disorder, single episode, unspecified; F41.9 Anxiety disorder, unspecified; F43.20 Adjustment disorder, unspecified; N52.9 Male erectile dysfunction, unspecified; R25.1 Tremor, unspecified; F17.220 Nicotine dependence, chewing tobacco, uncomplicated; E84.9 Cystic fibrosis, unspecified; Q55.4 Other congenital malformations of vas deferens, epididymis, seminal vesicles and prostate; F98.8 Other specified behavioral and emotional disorders with onset usually occurring in childhood and adolescence; Z79.891 Long term (current) use of opiate analgesic; Z79.899 Other long term (current) drug therapy; Z88.8 Allergy status to other drugs, medicaments and biological substances
CPT/HCPCS: 64493; 64494; Q9967

== ENCOUNTER → 2019-04-19 | Outpatient (CLI) | payer OTHER ==
[~2019-04-19] MED LIST changes: -BUPIVACAINE HCL 0.25% 30 ML VIAL As Ordered ONE; -ISOVUE-M 300 61% 15ML VIAL (Q9967) As Ordered ONE; -LIDOCAINE 1% SDV INJ 30 ML VIAL As Ordered ONE; -OMEP20CA3 PO; +OMEP20CA4 PO
--- NOTE | 2019-05-03 02:12 | ECWPNPC ---
PATIENT NAME: KRYSTLE LOONEY : 1985 GENDER: MALE VISIT DATE: 04/19/2019 DISCHARGE DATE: 04/19/19 1043 VISIT LOCKED DATE TIME: PHYSICIAN: MARINA ALLISON RESOURCE: MARINA ALLISON REASON FOR APPOINTMENT 1. POST PROC HISTORY OF PRESENT ILLNESS HISTORY OF PRESENT ILLNESS: HERE FOR POST PROCEDURE F/U.HAD BILAT. L4/5-L5/S1 LUMBAR BLOCK ON 03/10 19.HAD >80% REDUCTION IN PAIN THEN PAIN HAS GRADUALLY INCREASED.REPORTING LEFT SIDE WORSE AREA OF PAIN.RATING PAIN VAS 3/10. PAIN THE PATIENT DESCRIBES THE PAIN... FALL RISK SCREENING: SCREENING :NO FALLS REPORTED IN THE LAST YEAR CURRENT MEDICATIONS TAKING LIPITOR 20 MG TABLET 1 TABLET ORALLY ONCE A DAY TAKING CVS FLUTICASONE PROPIONATE 50 MCG/ACT SUSPENSION 1 SPRAY IN EACH NOSTRIL NASALLY ONCE A DAY TAKING KALYDECO 150 MG TABLET 1 TABLET ORALLY TWICE DAILY TAKING LISINOPRIL 5 MG TABLET DIRECTED ORALLY DAILY TAKING ZITHROMAX 250 MG TABLET 1 TABLET ORALLY ONCE A DAY TAKING ALBUTEROL SULFATE HFA 108 (90 BASE) MCG/ACT AEROSOL SOLUTION 2 PUFFS INHALATION EVERY 4-6 HOURS NEEDED TAKING LIDOCAINE 5 % PATCH 1 PATCH TO INTACT SKIN REMOVE AFTER 12 HOURS EXTERNALLY ONCE A DAY 12 HRS ON AND 12 HRS OFF TAKING WRIST SPLINT RIGHT WRIST NEEDED TAKING ACCUTANE 20 MGS 1 TAB ORAL DAILY TAKING FLUOXETINE HCL 10 MG CAPSULE 1 CAPSULE IN THE MORNING ORALLY ONCE A DAY TAKING MULTI VITAMIN W/D-3 - TABLET 2 TABLETS ORALLY ONCE A DAY TAKING TRAMADOL HCL 50 MG TABLET 1-2 TAB ORALLY EVERY 6 HRS MDD4 TAKING MAY HAVE - - TUMERIC 2 CAPSULE TAKING TIZANIDINE HCL 2 MG TABLET 1 TABLET NEEDED - TAKES 1/2 TABLET DAILY ORALLY FOR SPASMS THREE TIMES A DAY MDD3 TAKING LYRICA 200 MG CAPSULE 1 CAPSULE ORALLY BID MDD2 NOT-TAKING HIBICLENS 4 % LIQUID 1 CAPFUL WHEN SHOWER ALL OVER BODY, SCALP EXTERNALLY DAILY NOT-TAKING ALEVE 220 MG TABLET 1 TABLET WITH FOOD OR MILK NEEDED ORALLY EVERY 12 HRS MEDICATION LIST REVIEWED AND RECONCILED WITH THE PATIENT PAST MEDICAL HISTORY CLASSIC MIGRAINE WITH AURA ATYPICAL DEPRESSIVE DISORDER/ANXIETY/ADJUSTMENT DISORDER ATTENTION 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 TO LINEZOLIDE AND CLINDAMYCIN ONLY 2016 PANCREATITIS ALLERGIES AMITRIPTYLINE HCL: EXCESSIVE SOMNOLENCE - SIDE EFFECTS SURGICAL HISTORY DISC REPLACED C5-6 2008 BILATERAL INGUINAL HERNIA REPAIR 1989 CARPAL TUNNEL REPAIR LEFT 04/2018 RIGHT CARPAL TUNNEL REPAIR 01/2019 FAMILY HISTORY FATHER: ALIVE 62 YRS, NO KNOWN MEDICAL PROBLEMS MOTHER: ALIVE 60 YRS, HYPOGLYCEMIA, DEPRESSION,, DIAGNOSED WITH PSYCHIATRIC CONDITIONS SIBLINGS: BRO- KIDNEY PROBLEM PATERNAL GRAND FATHER: , UNKNOWN PATERNAL GRAND MOTHER: , STROKE MATERNAL GRAND FATHER: , HEART ATTACK MULTIPLE, CKD, PROSTATE CANCER, DM TYOE 2 MATERNAL GRAND MOTHER: , PANCREATIC CANCER MATERNAL UNCLE: HTN MATERNAL AUNT: DM, 1 BROTHER(S) , 2 SISTER(S) . SOCIAL HISTORY GENERAL: TOBACCO USE ARE YOU A:USES TOBACCO IN OTHER FORMS ADDITIONAL FINDINGS: TOBACCO USERCHEWS TOBACCO SMOKING CESSATION INFORMATION GIVEN01/18/2019 VAPORNO E-CIGARETTENO HIV / HEP-C SCREENING HIV TEST OFFERED TO PATIENT:YES DATE OFFERED:03/03/2017 TEST ACCEPTED:NO REASON:PATIENT DECLINED HEP-C TEST OFFERED TO PATIENT:YES DATE OFFERED:03/03/2017 TEST ACCEPTED:NO REASON:PATIENT DECLINED OTHERS AT HOME: SPOUSE, , SPOUSE,. HOUSING: OWNS HOME, , OWNS HOME,. EDUCATION BACHELOR- MATH, BACHELOR- MATH, BACHELOR- MATH, BACHELOR- MATH, BACHELOR- MATH, BACHELOR- MATH. DIET: REGULAR , LOW FAT, LOW CHOLESTEROL, CARBOHYDRATE CONTROLLED, REGULAR , LOW FAT, LOW CHOLESTEROL, CARBOHYDRATE CONTROLLED. LANGUAGE LANGUAGES SPOKEN:MALAY DOMESTIC VIOLENCE DO YOU FEEL SAFE IN YOUR ENVIRONMENT?YES BMI CARE GOAL FOLLOW-UP ABOVE NORMAL BMI FOLLOW-UPEXERCISE PROMOTION: STRENGTH TRAINING RECREATIONAL DRUG USE DRUG USE? NONE EXERCISE: NO REGULAR EXERCISE, WALKS, NO REGULAR EXERCISE, WALKS. LEARNING BARRIERS / SPECIAL NEEDS CHANGE FROM LAST VISIT?NO BARRIERS TO LEARNING?NO HEARING IMPAIRED?NO VISION IMPAIRED?YES :CORRECTIVE LENSES COGNITIVELY IMPAIRED?NO READINESS TO LEARN?YES LEARNING PREFERENCES?NO LEARNING CAPABILITIES PRESENT?YES EMOTIONAL BARRIERS?NO SPECIAL DEVICES?NO SEASONER HAND NEEDED?NO PAIN CLINIC PFS, CLERGY, PUBLIC HEALTH REFERRALS PFS REFERRAL NEEDED?NO CLERGY REFERRAL NEEDED?NO PUBLIC HEALTH REFERRAL NEEDED?NO WAS THE PROVIDER NOTIFIED OF ANY PERTINENT INFO? N/A HAS THE PATIENT BEEN EDUCATED REGARDING HIS/HER PLAN OF CARE?YES HAS THE PATIENT BEEN EDUCATED REGARDING PAIN, THE RISK FOR PAIN, THE IMPORTANCE OF EFFECTIVE PAIN MANAGEMENT, AND THE PAIN ASSESSMENT PROCESS?YES LATEX QUESTIONNAIRE LATEX ALLERGY : HAVE YOU EVER DEVELOPED ANY TYPE OF REACTION AFTER HANDLING LATEX PRODUCTS SUCH RUBBER GLOVES, CONDOMS, DIAPHRAGMS, BALLOONS, SOCKS, OR UNDERWEAR?NO LATEX ALLERGY : HAVE YOU EVER DEVELOPED ANY TYPE OF REACTION DURING OR AFTER DENTAL APPOINTMENT, VAGINAL/RECTAL EXAMINATION, SURGICAL PROCEDURE, OR ANY OTHER EXPOSURE?NO LATEX RISK : HAVE YOU EVER HAD ANY DIFFICULTY BREATHING OR HIVES AFTER EATING OR HANDLING ANY FRUITS, OR VEGETABLES; SUCH KIWI, BANANAS, STONE FRUITS, OR CHESTNUTSNO LATEX RISK : DO YOU HAVE A PREVIOUS PERSONAL HISTORY OF MORE THAN NINE SURGERIES, SPINA BIFIDA, OR REPEATED CATHERIZATIONS? NO LATEX RISK : ARE YOU FREQUENTLY EXPOSED TO LATEX PRODUCTS IN YOUR OCCUPATION?NO DATE ASKED : 12/07/2018 CAFFEINE CAFFEINE USE?NO ADVANCE DIRECTIVE ADVANCE DIRECTIVE DISCUSSED WITH PATIENT:YES PT HAS HCP-- TANIA [phone] FORM IS ON FILE [employer] [id number] ANGLICAN MARITAL STATUS: , . ALCOHOL SCREENING DID YOU HAVE A DRINK CONTAINING ALCOHOL IN THE PAST YEAR?YES POINTS2 INTERPRETATIONNEGATIVE HOW OFTEN DID YOU HAVE A DRINK CONTAINING ALCOHOL IN THE PAST YEAR?MONTHLY OR LESS (1 POINT) HOW MANY DRINKS DID YOU HAVE ON A TYPICAL DAY WHEN YOU WERE DRINKING IN THE PAST YEAR?3 OR 4 (1 POINT) HOW OFTEN DID YOU HAVE SIX OR MORE DRINKS ON ONE OCCASION IN THE PAST YEAR?NEVER (0 POINTS) OCCUPATION: [employer], MOVED BACK FROM [employer] [employer] WORKED IN [place], , [employer], MOVED BACK FROM [employer] [facility] WORKED IN [place],. SEXUAL HX HAD SEX IN THE LAST 12 MONTHS (VAGINAL, ORAL, OR ANAL)?: YES, WITH: WOMEN ONLY, HAVE YOU EVER HAD AN STD?: NO, HAD SEX IN THE LAST 12 MONTHS (VAGINAL, ORAL, OR ANAL)?: YES, WITH: WOMEN ONLY, HAVE YOU EVER HAD AN STD?: NO, HAD SEX IN THE LAST 12 MONTHS (VAGINAL, ORAL, OR ANAL)?: YES, WITH: WOMEN ONLY, HAVE YOU EVER HAD AN STD?: NO, HAD SEX IN THE LAST 12 MONTHS (VAGINAL, ORAL, OR ANAL)?: YES, WITH: WOMEN ONLY, HAVE YOU EVER HAD AN STD?: NO, HAD SEX IN THE LAST 12 MONTHS (VAGINAL, ORAL, OR ANAL)?: YES, WITH: WOMEN ONLY, HAVE YOU EVER HAD AN STD?: NO, HAD SEX IN THE LAST 12 MONTHS (VAGINAL, ORAL, OR ANAL)?: YES, WITH: WOMEN ONLY, HAVE YOU EVER HAD AN STD?: NO. 08/26/18 1015 REVIEWED WITH PT. AD11/16/18 REVIEWED WITH PT. ADREVIEWED WITH PATIENT 12/07/18 1239 JS REVIEWED WITH PT 03/10/19 1416 BVREVIEWED WITH PT 04/19/19 0989 BV. HOSPITALIZATION/MAJOR DIAGNOSTIC PROCEDURE [place], [place] 2008 HERNIA REPAIR 1988 REVIEW OF SYSTEMS REVIEWED BY: PROVIDER: MARINA OSWALD . CONSTITUTIONAL: ANY CHANGE IN YOUR MEDICAL CONDITION? NO . CHILLS NO . FEVER NO . INFECTION: DO YOU HAVE NEW INFECTIONS? NO . DO YOU HAVE HISTORY OF MRSA? NO . MUSCULOSKELETAL: ANY NEW PATTERNS OF PAIN OR NUMBNESS? NO . GASTROENTEROLOGY: ANY NEW CHANGE IN BOWEL CONTROL? NO . GENITOURINARY: ANY NEW CHANGE IN BLADDER CONTROL? NO . IS THERE A CHANCE YOU COULD BE ? NO . HEMATOLOGY/LYMPH: DO YOU TAKE ANY BLOOD THINNERS? (FOR EXAMPLE- COUMADIN, PLAVIX, AGGRENOX, PLATEL, PRADAXA, OR XARELTO) NO . WHEN WAS YOUR LAST DOSE? DATE: TIME: . NEUROLOGY: HAVE YOU FALLEN IN THE PAST 12 MONTHS? NO . ANY NEW EXTREMITY NUMBNESS OR WEAKNESS? NO . CARDIOLOGY: DO YOU HAVE A PACEMAKER OR DEFIBRILLATOR? NO . RESPIRATORY: HAVE YOU BEEN SICK IN THE PAST WEEK? NO . FEVER NO . FLU LIKE SYMPTOMS? NO . COUGH NO . INTEGUMENTARY: DO YOU HAVE ANY RASHES OR OPEN SORES? NO . ALLERGIC/IMMUNO: ARE YOU ALLERGIC TO IV DYE? NO . ANY NEW ALLERGIES? NO . PSYCHIATRIC: DO YOU HAVE THOUGHTS OF HURTING YOURSELF OR SOMEONE ELSE? NO . ARE YOU ABUSED, NEGLECTED, OR IN AN UNSAFE ENVIRONMENT? NO . ENDOCRINOLOGY: ARE YOU DIABETIC? NO . OTHER: DO YOU NEED ANY PRESCRIPTIONS? YES LYRICA . IF YES, PLEASE LIST: ____ . ANY NEW PROBLEMS WITH YOUR MEDICATIONS? NO . WHEN DID YOU LAST EAT? ____ . WHEN DID YOU LAST DRINK? ____ . WHAT DID YOU LAST DRINK? ____ . NAME OF PERSON DRIVING YOU HOME? ____ . DO YOU HAVE ANY OTHER QUESTIONS OR CONCERNS NO . VITAL SIGNS WT 319.6 LBS, HT 70.5 IN, BMI 45.20 INDEX, BP 129/56 MM HG, HR 90 /MIN, RR 18 /MIN, TEMP 96.9 F, OXYGEN SAT % 97%, NA INITIALS AW 0957. EXAMINATION GENERAL EXAMINATION: GENERAL AWAKE,ALERT ,PLEAASANT . PSYCH AFFECT NORMAL . LUNGS: LUNG SUÁREZ ARE CLEAR TO AUSCULTATION BILATERALLY. GOOD MOVEMENT OF AIR . HEART: S1, S2 IN A REGULAR RATE AND RHYTHM. NO SIGNIFICANT MURMURS, RUBS OR GALLOPS NOTED . LUMBAR SACRAL SPINEPALPATION:TENDER OVER BILAT. L4/5-L5/S1 LUMBAR FACETS WITH FACET LOADING L>R. DIAGNOSTIC TESTS REVIEWED MRI L/S SPINE-02/18/17. ASSESSMENTS LUMBOSACRAL SPONDYLOSIS WITH RADICULOPATHY - M47.27 (PRIMARY) TREATMENT LUMBOSACRAL SPONDYLOSIS WITH RADICULOPATHY REFILL LYRICA CAPSULE, 200 MG, 1 CAPSULE, ORALLY, BID MDD2, 30 DAYS, 60, REFILLS 5 NOTES: LEFT L4/5-L5/S1 LFBD #2. PROCEDURE CODES FA211 ESTABILISHED PATIENT [facility] CHARGE DISPOSITION & COMMUNICATION FOLLOW UP POST (REASON: LEFT L4/5-L5/S1 LFBD #2) ELECTRONICALLY SIGNED BY MARGRET WEBER ON 05/02/2019 AT 03:41 PM EDT DISCLAIMER : THIS IS A VISIT SUMMARY EXTRACTED FROM THE [employer] CHART. IT IS NOT A COPY OF THE [employer] PROGRESS NOTE. MTDD
== END ==
LOC: M PAIN 09:30
PROVIDERS: ATTEND Nurse Practitioner Family
DX: M47.27 Other spondylosis with radiculopathy, lumbosacral region (principal); G43.109 Migraine with aura, not intractable, without status migrainosus; Z86.59 Personal history of other mental and behavioral disorders; R25.1 Tremor, unspecified; Z86.19 Personal history of other infectious and parasitic diseases; F17.220 Nicotine dependence, chewing tobacco, uncomplicated; Z88.8 Allergy status to other drugs, medicaments and biological substances; E66.01 Morbid (severe) obesity due to excess calories; Z68.42 Body mass index [BMI] 45.0-49.9, adult; Z79.891 Long term (current) use of opiate analgesic; Z79.899 Other long term (current) drug therapy

== ENCOUNTER → 2019-05-26 | Outpatient (CLI) | payer OTHER ==
[~2019-05-26] MED LIST changes: +BUPIVACAINE HCL 0.25% 30 ML VIAL As Ordered ONE; +ISOVUE-M 200 41% 20ML VIAL (Q9966) As Ordered ONE; +LIDOCAINE 1% SDV INJ 30 ML VIAL As Ordered ONE
--- NOTE | 2019-05-26 14:36 | REP ---
Partial lumbar spine series: Two views . History: Injection procedure for pain. 20 seconds of fluoroscopy time is reported. Findings: A sequence of two fluoroscopically obtained last image hold procedural spot radiographs of the lumbar spine document needle position and contrast injection associated with injection procedure. Electronically Signed by Dallas Rivera MD 05/26/2019 02:27 P
--- NOTE | 2019-06-03 02:09 | ECWPNPC ---
PATIENT NAME: KRYSTLE LOONEY : 1985 GENDER: MALE VISIT DATE: 05/26/2019 DISCHARGE DATE: 05/26/19 1203 VISIT LOCKED DATE TIME: PHYSICIAN: PRAKASH SMITH MD RESOURCE: PRAKASH SMITH MD REASON FOR APPOINTMENT 1. RIGHT L4/5-L5/S1 LFBD # 2 HISTORY OF PRESENT ILLNESS HISTORY OF PRESENT ILLNESS: PAIN THE PATIENT DESCRIBES THE PAIN... FALL RISK SCREENING: SCREENING :NO FALLS REPORTED IN THE LAST YEAR CURRENT MEDICATIONS TAKING LIPITOR 20 MG TABLET 1 TABLET ORALLY ONCE A DAY TAKING CVS FLUTICASONE PROPIONATE 50 MCG/ACT SUSPENSION 1 SPRAY IN EACH NOSTRIL NASALLY ONCE A DAY TAKING KALYDECO 150 MG TABLET 1 TABLET ORALLY TWICE DAILY TAKING LISINOPRIL 5 MG TABLET DIRECTED ORALLY DAILY TAKING ZITHROMAX 250 MG TABLET 1 TABLET ORALLY ONCE A DAY TAKING ALBUTEROL SULFATE HFA 108 (90 BASE) MCG/ACT AEROSOL SOLUTION 2 PUFFS INHALATION EVERY 4-6 HOURS NEEDED TAKING LIDOCAINE 5 % PATCH 1 PATCH TO INTACT SKIN REMOVE AFTER 12 HOURS EXTERNALLY ONCE A DAY 12 HRS ON AND 12 HRS OFF TAKING WRIST SPLINT RIGHT WRIST NEEDED TAKING ACCUTANE 20 MGS 1 TAB ORAL DAILY TAKING FLUOXETINE HCL 10 MG CAPSULE 1 CAPSULE IN THE MORNING ORALLY ONCE A DAY TAKING MULTI VITAMIN W/D-3 - TABLET 2 TABLETS ORALLY ONCE A DAY TAKING TRAMADOL HCL 50 MG TABLET 1-2 TAB ORALLY EVERY 6 HRS MDD4, NOTES: 2 DAYS AGO TAKING MAY HAVE - - TUMERIC 2 CAPSULE TAKING TIZANIDINE HCL 2 MG TABLET 1 TABLET NEEDED - TAKES 1/2 TABLET DAILY ORALLY FOR SPASMS THREE TIMES A DAY MDD3 TAKING LYRICA 200 MG CAPSULE 1 CAPSULE ORALLY BID MDD2 TAKING ALEVE 220 MG TABLET 1 TABLET WITH FOOD OR MILK NEEDED ORALLY EVERY 12 HRS DISCONTINUED HIBICLENS 4 % LIQUID 1 CAPFUL WHEN SHOWER ALL OVER BODY, SCALP EXTERNALLY DAILY MEDICATION LIST REVIEWED AND RECONCILED WITH THE PATIENT PAST MEDICAL HISTORY CLASSIC MIGRAINE WITH AURA ATYPICAL DEPRESSIVE DISORDER/ANXIETY/ADJUSTMENT DISORDER ATTENTION 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 TO LINEZOLIDE AND CLINDAMYCIN ONLY 2016 PANCREATITIS RIGHT TORN LIGAMENT IN RIGHT ALLERGIES AMITRIPTYLINE HCL: EXCESSIVE SOMNOLENCE - SIDE EFFECTS GABAPENTIN: GETS SUICIDAL THOUGHTS - SIDE EFFECTS SURGICAL HISTORY DISC REPLACED C5-6 2009 BILATERAL INGUINAL HERNIA REPAIR 1989 CARPAL TUNNEL REPAIR LEFT 04/2018 RIGHT CARPAL TUNNEL REPAIR 01/2019 RIGHT WRIST LIGAMENT REPAIR 05/16/19 FAMILY HISTORY FATHER: ALIVE 62 YRS, NO KNOWN MEDICAL PROBLEMS MOTHER: ALIVE 60 YRS, HYPOGLYCEMIA, DEPRESSION,, DIAGNOSED WITH PSYCHIATRIC CONDITIONS SIBLINGS: BRO- KIDNEY PROBLEM PATERNAL GRAND FATHER: , UNKNOWN PATERNAL GRAND MOTHER: , STROKE MATERNAL GRAND FATHER: , HEART ATTACK MULTIPLE, CKD, PROSTATE CANCER, DM TYOE 2 MATERNAL GRAND MOTHER: , PANCREATIC CANCER MATERNAL UNCLE: HTN MATERNAL AUNT: DM, 1 BROTHER(S) , 2 SISTER(S) . SOCIAL HISTORY GENERAL: TOBACCO USE ARE YOU A:USES TOBACCO IN OTHER FORMS ADDITIONAL FINDINGS: TOBACCO USERCHEWS TOBACCO SMOKING CESSATION INFORMATION GIVEN01/18/2019 VAPORNO E-CIGARETTENO HIV / HEP-C SCREENING HIV TEST OFFERED TO PATIENT:YES DATE OFFERED:03/03/2017 TEST ACCEPTED:NO REASON:PATIENT DECLINED HEP-C TEST OFFERED TO PATIENT:YES DATE OFFERED:03/03/2017 TEST ACCEPTED:NO REASON:PATIENT DECLINED OTHERS AT HOME: SPOUSE, , SPOUSE,. HOUSING: OWNS HOME, , OWNS HOME,. EDUCATION BACHELOR- MATH, BACHELOR- MATH, BACHELOR- MATH, BACHELOR- MATH, BACHELOR- MATH, BACHELOR- MATH. DIET: REGULAR , LOW FAT, LOW CHOLESTEROL, CARBOHYDRATE CONTROLLED, REGULAR , LOW FAT, LOW CHOLESTEROL, CARBOHYDRATE CONTROLLED. LANGUAGE LANGUAGES SPOKEN:ALBANIAN DOMESTIC VIOLENCE DO YOU FEEL SAFE IN YOUR ENVIRONMENT?YES BMI CARE GOAL FOLLOW-UP ABOVE NORMAL BMI FOLLOW-UPEXERCISE PROMOTION: STRENGTH TRAINING RECREATIONAL DRUG USE DRUG USE? NONE EXERCISE: NO REGULAR EXERCISE, WALKS, NO REGULAR EXERCISE, WALKS. LEARNING BARRIERS / SPECIAL NEEDS CHANGE FROM LAST VISIT?NO BARRIERS TO LEARNING?NO HEARING IMPAIRED?NO VISION IMPAIRED?YES :CORRECTIVE LENSES COGNITIVELY IMPAIRED?NO READINESS TO LEARN?YES LEARNING PREFERENCES?NO LEARNING CAPABILITIES PRESENT?YES EMOTIONAL BARRIERS?NO SPECIAL DEVICES?NO SUPPLY CHAIN SYSTEMS MANAGER NEEDED?NO PAIN CLINIC PFS, CLERGY, PUBLIC HEALTH REFERRALS PFS REFERRAL NEEDED?NO CLERGY REFERRAL NEEDED?NO PUBLIC HEALTH REFERRAL NEEDED?NO WAS THE PROVIDER NOTIFIED OF ANY PERTINENT INFO? N/A HAS THE PATIENT BEEN EDUCATED REGARDING HIS/HER PLAN OF CARE?YES HAS THE PATIENT BEEN EDUCATED REGARDING PAIN, THE RISK FOR PAIN, THE IMPORTANCE OF EFFECTIVE PAIN MANAGEMENT, AND THE PAIN ASSESSMENT PROCESS?YES LATEX QUESTIONNAIRE LATEX ALLERGY : HAVE YOU EVER DEVELOPED ANY TYPE OF REACTION AFTER HANDLING LATEX PRODUCTS SUCH RUBBER GLOVES, CONDOMS, DIAPHRAGMS, BALLOONS, SOCKS, OR UNDERWEAR?NO LATEX ALLERGY : HAVE YOU EVER DEVELOPED ANY TYPE OF REACTION DURING OR AFTER DENTAL APPOINTMENT, VAGINAL/RECTAL EXAMINATION, SURGICAL PROCEDURE, OR ANY OTHER EXPOSURE?NO LATEX RISK : HAVE YOU EVER HAD ANY DIFFICULTY BREATHING OR HIVES AFTER EATING OR HANDLING ANY FRUITS, OR VEGETABLES; SUCH KIWI, BANANAS, STONE FRUITS, OR CHESTNUTSNO LATEX RISK : DO YOU HAVE A PREVIOUS PERSONAL HISTORY OF MORE THAN NINE SURGERIES, SPINA BIFIDA, OR REPEATED CATHERIZATIONS? NO LATEX RISK : ARE YOU FREQUENTLY EXPOSED TO LATEX PRODUCTS IN YOUR OCCUPATION?NO DATE ASKED : 05/26/2019 CAFFEINE CAFFEINE USE?NO ADVANCE DIRECTIVE ADVANCE DIRECTIVE DISCUSSED WITH PATIENT:YES PT HAS HCP-- TANIA [phone] FORM IS ON FILE BUDDHIST [id number] EVANGELICAL MARITAL STATUS: , . 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 SEXUAL HX HAD SEX IN THE LAST 12 MONTHS (VAGINAL, ORAL, OR ANAL)?: YES, WITH: WOMEN ONLY, HAVE YOU EVER HAD AN STD?: NO, HAD SEX IN THE LAST 12 MONTHS (VAGINAL, ORAL, OR ANAL)?: YES, WITH: WOMEN ONLY, HAVE YOU EVER HAD AN STD?: NO, HAD SEX IN THE LAST 12 MONTHS (VAGINAL, ORAL, OR ANAL)?: YES, WITH: WOMEN ONLY, HAVE YOU EVER HAD AN STD?: NO, HAD SEX IN THE LAST 12 MONTHS (VAGINAL, ORAL, OR ANAL)?: YES, WITH: WOMEN ONLY, HAVE YOU EVER HAD AN STD?: NO, HAD SEX IN THE LAST 12 MONTHS (VAGINAL, ORAL, OR ANAL)?: YES, WITH: WOMEN ONLY, HAVE YOU EVER HAD AN STD?: NO, HAD SEX IN THE LAST 12 MONTHS (VAGINAL, ORAL, OR ANAL)?: YES, WITH: WOMEN ONLY, HAVE YOU EVER HAD AN STD?: NO. 08/26/18 1015 REVIEWED WITH PT. AD11/16/18 REVIEWED WITH PT. ADREVIEWED WITH PATIENT 12/07/18 1239 JS REVIEWED WITH PT 03/10/19 1416 BVREVIEWED WITH PT 04/19/19 0959 BV. HOSPITALIZATION/MAJOR DIAGNOSTIC PROCEDURE [place], [place] 2008 HERNIA REPAIR 1988 REVIEW OF SYSTEMS REVIEWED BY: PROVIDER: . CONSTITUTIONAL: ANY CHANGE IN YOUR MEDICAL CONDITION? NO . CHILLS NO . FEVER NO . INFECTION: DO YOU HAVE NEW INFECTIONS? NO . DO YOU HAVE HISTORY OF MRSA? NO . MUSCULOSKELETAL: ANY NEW PATTERNS OF PAIN OR NUMBNESS? NO . GASTROENTEROLOGY: ANY NEW CHANGE IN BOWEL CONTROL? NO . GENITOURINARY: ANY NEW CHANGE IN BLADDER CONTROL? NO . IS THERE A CHANCE YOU COULD BE ? NO . HEMATOLOGY/LYMPH: DO YOU TAKE ANY BLOOD THINNERS? (FOR EXAMPLE- COUMADIN, PLAVIX, AGGRENOX, PLATEL, PRADAXA, OR XARELTO) NO . WHEN WAS YOUR LAST DOSE? DATE: TIME: . NEUROLOGY: HAVE YOU FALLEN IN THE PAST 12 MONTHS? NO . ANY NEW EXTREMITY NUMBNESS OR WEAKNESS? NO . CARDIOLOGY: DO YOU HAVE A PACEMAKER OR DEFIBRILLATOR? NO . RESPIRATORY: HAVE YOU BEEN SICK IN THE PAST WEEK? NO . FEVER NO . FLU LIKE SYMPTOMS? NO . COUGH NO . INTEGUMENTARY: DO YOU HAVE ANY RASHES OR OPEN SORES? NO . ALLERGIC/IMMUNO: ARE YOU ALLERGIC TO IV DYE? NO . ANY NEW ALLERGIES? NO . PSYCHIATRIC: DO YOU HAVE THOUGHTS OF HURTING YOURSELF OR SOMEONE ELSE? NO . ARE YOU ABUSED, NEGLECTED, OR IN AN UNSAFE ENVIRONMENT? NO . ENDOCRINOLOGY: ARE YOU DIABETIC? NO . OTHER: DO YOU NEED ANY PRESCRIPTIONS? NO . IF YES, PLEASE LIST: ____ . ANY NEW PROBLEMS WITH YOUR MEDICATIONS? NO . WHEN DID YOU LAST EAT? ___05/25/19 . WHEN DID YOU LAST DRINK? ____05/25/19 . WHAT DID YOU LAST DRINK? ____WATER . NAME OF PERSON DRIVING YOU HOME? ____TANIA LOONEY . DO YOU HAVE ANY OTHER QUESTIONS OR CONCERNS NO . VITAL SIGNS WT 307.2 LBS, HT 70.5 IN, BMI 43.45 INDEX, BP 129/62 MM HG, HR 81 /MIN, RR 18 /MIN, TEMP 97.5 F, OXYGEN SAT % 94%, SAFE IN ENV? (Y/N) YES, NA INITIALS SC 10:32, REVIEWED BY: VD. ASSESSMENTS SPONDYLOSIS OF LUMBAR REGION WITHOUT MYELOPATHY OR RADICULOPATHY - M47.816 (PRIMARY) SPONDYLOSIS OF LUMBOSACRAL REGION WITHOUT MYELOPATHY OR RADICULOPATHY - M47.817 PROCEDURES PN LUMBAR FACET BLOCK DIAGNOSTIC PRE PROCEDURE DIAGNOSIS LUMBAR SPONDYLOSIS, LUMBOSACRAL SPONDYLOSIS POST PROCEDURE DIAGNOSIS LUMBAR SPONDYLOSIS, LUMBOSACRAL SPONDYLOSIS PROCEDURE RIGHT L4-L5 AND RIGHT L5-S1 FACET BLOCK DIAGNOSTIC NUMBER [address] PRAKASH SMITH WOOD ROOM HAND NONE ANESTHESIA LOCAL PRE PROCEDURE NOTE THE PATIENT WITH HISTORY OF CHRONIC LOW BACK PAIN. I EVALUATED THE PATIENT AND REVIEWED THE CHART. I WENT OVER THE RISKS, ALTERNATIVES, AND BENEFITS ASSOCIATED WITH THIS PROCEDURE. THE PATIENT WOULD LIKE TO PROCEED AND GAVE CONSENT TO PERFORM THE PROCEDURE. AGREED WITH THE PATIENT WE ARE DOING THIS PROCEDURE TO DETERMINE IF THE PATIENT IS A CANDIDATE FOR A RADIOFREQUENCY ABLATION OF THE FACETS JOINTS. THE PATIENT DENIES UNEXPLAINABLE WEIGHT LOSS, FEVER, CHILLS, OR NEW CHANGES IN URINARY OR BOWEL CONTROL DESCRIPTION OF PROCEDURE THE PATIENT WAS BROUGHT TO THE PROCEDURE ROOM AND PLACED IN THE PRONE POSITION. THE LUMBOSACRAL AREA WAS CLEANED WITH CHLORAPREP SOLUTION AND DRAPED ASEPTICALLY. THE PROCEDURE WAS DONE UNDER STERILE CONDITIONS. I CHECKED LATERALITY AND THE LEVEL WHERE THE PROCEDURE WAS GOING TO BE PERFORMED WITH THE PATIENT AND THE SUPPORTING STAFF AT THE MOMENT OF THE TIME OUT IN THE PROCEDURE ROOM. UNDER FLUOROSCOPIC GUIDANCE, TARGETS WERE SELECTED AT THE INTERSECTION OF THE RIGHT TRANSVERSE PROCESS OF L4, L5 AND ALA OF S1 WITH ITS RESPECTIVE SUPERIOR ARTICULAR PROCESS. LIDOCAINE WAS USED TO NUMB THE SKIN AND THE SUBCUTANEOUS TISSUE BELOW IT. SPINAL NEEDLE, 22-GAUGE WAS ADVANCED UNDER FLUOROSCOPIC GUIDANCE AND FOLLOWING PATIENT FEEDBACK UNTIL THE TARGETS WERE REACHED. POSITION OF THE NEEDLES WAS VERIFIED WITH AP AND LATERAL VIEWS. AFTER PROPER POSITION OF THE NEEDLES WAS ACHIEVED, ISOVUE-M DYE 30% 0.1 ML WAS INJECTED AT EACH SITE SHOWING ADEQUATE SPREAD OF THE DYE. THEN A SOLUTION OF 0.4 ML OF BUPIVACAINE 0.25% WAS INJECTED AT EACH SITE. THERE WAS NO EVIDENCE OF BLOOD, PARESTHESIA OR CEREBROSPINAL FLUID DURING THE PROCEDURE. THE PATIENT WAS SENT TO THE RECOVERY ROOM. THE PATIENT WAS MOVING THE EXTREMITIES AND DOING WELL. THERE WAS NO COMPLICATION DURING THE PROCEDURE. FLUOROSCOPY TIME WAS 20 SECONDS POST PROCEDURE NOTE THE PATIENT WILL DOCUMENT HIS PAIN LEVEL AND RESPONSE TO THIS PROCEDURE EVERY 30 MINUTES. THE PATIENT WILL BE SEEN IN A FOLLOW UP IN THE NEXT FEW WEEKS. FURTHER DETERMINATION FOR HIS CASE WILL BE DONE AT THE NEXT VISIT. INSTRUCTIONS WERE GIVEN, QUESTIONS WERE ANSWERED, AND THE PATIENT EXPRESSED UNDERSTANDING AND AGREED WITH THE PLAN. I, WILLIAM RODRIGUEZ, DOCUMENTED THE ABOVE INFORMATION ACTING A SCRIBE FOR DR. SMITH. I HAVE REVIEWED THE ABOVE DOCUMENT, WRITTEN BY WILLIAM RODRIGUEZ SCRIBE AND I VERIFY THAT IT IS ACCURATE. DIAGNOSTIC IMAGING [facility] FACET BLOCK (PAIN)[id number] PROCEDURE CODES 63573 INJ PARAVERT F JNT L/S 1 LEV, MODIFIERS: [place] [address]148 INJ PARAVERT F JNT L/S 2 LEV, MODIFIERS: RT 6045F RADXPS IN END [id number] PXD DISPOSITION & COMMUNICATION FOLLOW UP 3 WEEKS ELECTRONICALLY SIGNED BY PRAKASH SMITH MD, ON 06/02/2019 AT 01:31 PM EDT DISCLAIMER : THIS IS A VISIT SUMMARY EXTRACTED FROM THE [facility] CHART. IT IS NOT A COPY OF THE [facility] PROGRESS NOTE. MTDD
== END ==
LOC: M PAIN 10:15
PROVIDERS: ATTEND Anesthesiology
DX: M47.816 Spondylosis without myelopathy or radiculopathy, lumbar region (principal); M47.817 Spondylosis without myelopathy or radiculopathy, lumbosacral region; G43.109 Migraine with aura, not intractable, without status migrainosus; F41.9 Anxiety disorder, unspecified; F32.9 Major depressive disorder, single episode, unspecified; J30.9 Allergic rhinitis, unspecified; E84.9 Cystic fibrosis, unspecified; N52.9 Male erectile dysfunction, unspecified; N46.9 Male infertility, unspecified; Q55.4 Other congenital malformations of vas deferens, epididymis, seminal vesicles and prostate; R25.1 Tremor, unspecified; F98.8 Other specified behavioral and emotional disorders with onset usually occurring in childhood and adolescence; M54.12 Radiculopathy, cervical region; F17.220 Nicotine dependence, chewing tobacco, uncomplicated; Z79.891 Long term (current) use of opiate analgesic; Z79.899 Other long term (current) drug therapy; Z88.8 Allergy status to other drugs, medicaments and biological substances
CPT/HCPCS: 64493; 64494; Q9966

== ENCOUNTER → 2019-06-16 | Outpatient (CLI) | payer OTHER ==
[~2019-06-16] MED LIST changes: -BUPIVACAINE HCL 0.25% 30 ML VIAL As Ordered ONE; -ISOVUE-M 200 41% 20ML VIAL (Q9966) As Ordered ONE; -LIDOCAINE 1% SDV INJ 30 ML VIAL As Ordered ONE
== END ==
LOC: M PAIN 09:15
PROVIDERS: ATTEND Nurse Practitioner Family
DX: M47.816 Spondylosis without myelopathy or radiculopathy, lumbar region (principal); M47.817 Spondylosis without myelopathy or radiculopathy, lumbosacral region; G43.109 Migraine with aura, not intractable, without status migrainosus; Z86.59 Personal history of other mental and behavioral disorders; R25.1 Tremor, unspecified; F17.220 Nicotine dependence, chewing tobacco, uncomplicated; Z88.8 Allergy status to other drugs, medicaments and biological substances; E66.01 Morbid (severe) obesity due to excess calories; Z68.41 Body mass index [BMI] 40.0-44.9, adult; Z79.891 Long term (current) use of opiate analgesic; Z79.899 Other long term (current) drug therapy

== ENCOUNTER → 2019-08-11 | Outpatient (CLI) | payer OTHER ==
[~2019-08-11] MED LIST changes: +BUPIVACAINE HCL 0.25% 30 ML VIAL As Ordered ONE; +ISOVUE-M 300 61% 15ML VIAL (Q9967) As Ordered ONE; +LIDOCAINE 1% SDV INJ 30 ML VIAL As Ordered ONE; +TRIAMCINOLONE ACETONIDE SUSP 40 MG/ML VIAL (J3301) As Ordered ONE
--- NOTE | 2019-08-12 07:40 | REP ---
Partial lumbar spine series: Three views . History: Injection procedure for pain. 28 seconds of fluoroscopy time is reported. Findings: A sequence of three fluoroscopically obtained last image hold procedural spot radiographs of the lumbar spine document needle position and contrast injection associated with injection procedure. Electronically Signed by Dallas Rivera MD 08/11/2019 01:33 P
--- NOTE | 2019-08-19 01:03 | ECWPNPC ---
PATIENT NAME: KRYSTLE LOONEY : 1985 GENDER: MALE VISIT DATE: 08/11/2019 DISCHARGE DATE: 08/11/19 1403 VISIT LOCKED DATE TIME: PHYSICIAN: PRAKASH SMITH MD RESOURCE: PRAKASH SMITH MD REASON FOR APPOINTMENT 1. RIGHT L4/5-L5/S1 RF HISTORY OF PRESENT ILLNESS HISTORY OF PRESENT ILLNESS: PAIN THE PATIENT DESCRIBES THE PAIN... FALL RISK SCREENING: SCREENING :NO FALLS REPORTED IN THE LAST YEAR CURRENT MEDICATIONS TAKING LIPITOR 20 MG TABLET 1 TABLET ORALLY ONCE A DAY, NOTES: 08/10 2100 [address] [facility] FLUTICASONE PROPIONATE 50 MCG/ACT SUSPENSION 1 SPRAY IN EACH NOSTRIL NASALLY ONCE A DAY, NOTES: 1 WEEK AGO TAKING KALYDECO 150 MG TABLET 1 TABLET ORALLY TWICE DAILY, NOTES: 08/11 730 TAKING LISINOPRIL 5 MG TABLET DIRECTED ORALLY DAILY, NOTES: 08/10 2130 TAKING ZITHROMAX 250 MG TABLET 1 TABLET ORALLY ONCE A DAY, NOTES: 08/10 730 TAKING ALBUTEROL SULFATE HFA 108 (90 BASE) MCG/ACT AEROSOL SOLUTION 2 PUFFS INHALATION EVERY 4-6 HOURS NEEDED, NOTES: 1 WEEK AGO TAKING LIDOCAINE 5 % PATCH 1 PATCH TO INTACT SKIN REMOVE AFTER 12 HOURS EXTERNALLY ONCE A DAY 12 HRS ON AND 12 HRS OFF, NOTES: 1 WEEK AGO TAKING WRIST SPLINT RIGHT WRIST NEEDED TAKING ACCUTANE 20 MGS 1 TAB ORAL DAILY, NOTES: 08/11 730 TAKING MULTI VITAMIN W/D-3 - TABLET 2 TABLETS ORALLY ONCE A DAY, NOTES: NONE RECENT TAKING TRAMADOL HCL 50 MG TABLET 1-2 TAB ORALLY EVERY 6 HRS MDD4, NOTES: 08/08 TAKING MAY HAVE - - TUMERIC 2 CAPSULE , NOTES: 1 WEEK AGO TAKING TIZANIDINE HCL 2 MG TABLET 1 TABLET NEEDED - TAKES 1/2 TABLET DAILY ORALLY FOR SPASMS THREE TIMES A DAY MDD3, NOTES: 1 WEEK AGO TAKING LYRICA 200 MG CAPSULE 1 CAPSULE ORALLY BID MDD2, NOTES: 08/11 730 TAKING ALEVE 220 MG TABLET 1 TABLET WITH FOOD OR MILK NEEDED ORALLY EVERY 12 HRS, NOTES: NONE RECENT TAKING MELOXICAM 15 MG TABLET 1 TABLET PRN ORALLY ONCE A DAY, NOTES: 08/11 730 NOT-TAKING FLUOXETINE HCL 10 MG CAPSULE 1 CAPSULE IN THE MORNING ORALLY ONCE A DAY MEDICATION LIST REVIEWED AND RECONCILED WITH THE PATIENT PAST MEDICAL HISTORY CLASSIC MIGRAINE WITH AURA ATYPICAL DEPRESSIVE DISORDER/ANXIETY/ADJUSTMENT DISORDER ATTENTION 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 TO LINEZOLIDE AND CLINDAMYCIN ONLY 2017 PANCREATITIS RIGHT TORN LIGAMENT IN RIGHT OBESITY ALLERGIES AMITRIPTYLINE HCL: EXCESSIVE SOMNOLENCE - SIDE EFFECTS GABAPENTIN: GETS SUICIDAL THOUGHTS - SIDE EFFECTS SURGICAL HISTORY DISC REPLACED C5-6 2008 BILATERAL INGUINAL HERNIA REPAIR 1989 CARPAL TUNNEL REPAIR LEFT 04/2018 RIGHT CARPAL TUNNEL REPAIR 01/2019 RIGHT WRIST LIGAMENT REPAIR 05/16/19 FAMILY HISTORY FATHER: ALIVE 62 YRS, NO KNOWN MEDICAL PROBLEMS MOTHER: ALIVE 60 YRS, HYPOGLYCEMIA, DEPRESSION,, DIAGNOSED WITH UNSPECIFIED NONPSYCHOTIC MENTAL DISORDER FOLLOWING ORGANIC BRAIN DAMAGE SIBLINGS: BRO- KIDNEY PROBLEM PATERNAL GRAND FATHER: , UNKNOWN PATERNAL GRAND MOTHER: , STROKE MATERNAL GRAND FATHER: , HEART ATTACK MULTIPLE, CKD, PROSTATE CANCER, DM TYOE 2 MATERNAL GRAND MOTHER: , PANCREATIC CANCER MATERNAL UNCLE: HTN MATERNAL AUNT: DM, 1 BROTHER(S) , 2 SISTER(S) . SOCIAL HISTORY GENERAL: TOBACCO USE ARE YOU A:USES TOBACCO IN OTHER FORMS TRYING TO QUIT ADDITIONAL FINDINGS: TOBACCO USERCHEWS TOBACCO ALSO USING NON TOBACCO CHEW SMOKING CESSATION INFORMATION GIVEN08/11/2019 VAPORNO E-CIGARETTENO HIV / HEP-C SCREENING HIV TEST OFFERED TO PATIENT:YES DATE OFFERED:03/03/2017 TEST ACCEPTED:NO HEP-C TEST OFFERED TO PATIENT:YES DATE OFFERED:03/03/2017 REASON:PATIENT DECLINED TEST ACCEPTED:NO REASON:PATIENT DECLINED OTHERS AT HOME: SPOUSE, , SPOUSE,. HOUSING: OWNS HOME, , OWNS HOME,. EDUCATION BACHELOR- MATH, BACHELOR- MATH, BACHELOR- MATH, BACHELOR- MATH, BACHELOR- MATH, BACHELOR- MATH. DIET: REGULAR , LOW FAT, LOW CHOLESTEROL, CARBOHYDRATE CONTROLLED, REGULAR , LOW FAT, LOW CHOLESTEROL, CARBOHYDRATE CONTROLLED. LANGUAGE LANGUAGES SPOKEN:KOREAN DOMESTIC VIOLENCE DO YOU FEEL SAFE IN YOUR ENVIRONMENT?YES BMI CARE GOAL FOLLOW-UP ABOVE NORMAL BMI FOLLOW-UPEXERCISE PROMOTION: STRENGTH TRAINING RECREATIONAL DRUG USE DRUG USE? NONE EXERCISE: NO REGULAR EXERCISE, WALKS, NO REGULAR EXERCISE, WALKS. LEARNING BARRIERS / SPECIAL NEEDS CHANGE FROM LAST VISIT?NO BARRIERS TO LEARNING?NO HEARING IMPAIRED?NO VISION IMPAIRED?YES :CORRECTIVE LENSES COGNITIVELY IMPAIRED?NO READINESS TO LEARN?YES LEARNING PREFERENCES?NO LEARNING CAPABILITIES PRESENT?YES EMOTIONAL BARRIERS?NO SPECIAL DEVICES?NO TRAVELING CLERK NEEDED?NO PAIN CLINIC PFS, CLERGY, PUBLIC HEALTH REFERRALS PFS REFERRAL NEEDED?NO CLERGY REFERRAL NEEDED?NO PUBLIC HEALTH REFERRAL NEEDED?NO WAS THE PROVIDER NOTIFIED OF ANY PERTINENT INFO? N/A HAS THE PATIENT BEEN EDUCATED REGARDING HIS/HER PLAN OF CARE?YES HAS THE PATIENT BEEN EDUCATED REGARDING PAIN, THE RISK FOR PAIN, THE IMPORTANCE OF EFFECTIVE PAIN MANAGEMENT, AND THE PAIN ASSESSMENT PROCESS?YES LATEX QUESTIONNAIRE LATEX ALLERGY : HAVE YOU EVER DEVELOPED ANY TYPE OF REACTION AFTER HANDLING LATEX PRODUCTS SUCH RUBBER GLOVES, CONDOMS, DIAPHRAGMS, BALLOONS, SOCKS, OR UNDERWEAR?NO LATEX ALLERGY : HAVE YOU EVER DEVELOPED ANY TYPE OF REACTION DURING OR AFTER DENTAL APPOINTMENT, VAGINAL/RECTAL EXAMINATION, SURGICAL PROCEDURE, OR ANY OTHER EXPOSURE?NO DATE ASKED : 05/26/2019 LATEX RISK : HAVE YOU EVER HAD ANY DIFFICULTY BREATHING OR HIVES AFTER EATING OR HANDLING ANY FRUITS, OR VEGETABLES; SUCH KIWI, BANANAS, STONE FRUITS, OR CHESTNUTSNO LATEX RISK : DO YOU HAVE A PREVIOUS PERSONAL HISTORY OF MORE THAN NINE SURGERIES, SPINA BIFIDA, OR REPEATED CATHERIZATIONS? NO LATEX RISK : ARE YOU FREQUENTLY EXPOSED TO LATEX PRODUCTS IN YOUR OCCUPATION?NO CAFFEINE CAFFEINE USE?NO ADVANCE DIRECTIVE ADVANCE DIRECTIVE DISCUSSED WITH PATIENT:YES PT HAS HCP-- TANIA [phone] FORM IS ON FILE JAIN [id number] BAHAI MARITAL STATUS: , . ALCOHOL SCREENING DID YOU HAVE A DRINK CONTAINING ALCOHOL IN THE PAST YEAR?YES HOW OFTEN DID YOU HAVE SIX OR MORE DRINKS ON ONE OCCASION IN THE PAST YEAR?NEVER (0 POINTS) HOW MANY DRINKS DID YOU HAVE ON A TYPICAL DAY WHEN YOU WERE DRINKING IN THE PAST YEAR?3 OR 4 (1 POINT) HOW OFTEN DID YOU HAVE A DRINK CONTAINING ALCOHOL IN THE PAST YEAR?MONTHLY OR LESS (1 POINT) POINTS2 INTERPRETATIONNEGATIVE OCCUPATION: [employer] CENTER, MOVED BACK FROM [facility] [employer] WORKED IN [employer], , [employer], MOVED BACK FROM [facility] [employer] WORKED IN [employer],. SEXUAL HX HAD SEX IN THE LAST 12 MONTHS (VAGINAL, ORAL, OR ANAL)?: YES, WITH: WOMEN ONLY, HAVE YOU EVER HAD AN STD?: NO, HAD SEX IN THE LAST 12 MONTHS (VAGINAL, ORAL, OR ANAL)?: YES, WITH: WOMEN ONLY, HAVE YOU EVER HAD AN STD?: NO, HAD SEX IN THE LAST 12 MONTHS (VAGINAL, ORAL, OR ANAL)?: YES, WITH: WOMEN ONLY, HAVE YOU EVER HAD AN STD?: NO, HAD SEX IN THE LAST 12 MONTHS (VAGINAL, ORAL, OR ANAL)?: YES, WITH: WOMEN ONLY, HAVE YOU EVER HAD AN STD?: NO, HAD SEX IN THE LAST 12 MONTHS (VAGINAL, ORAL, OR ANAL)?: YES, WITH: WOMEN ONLY, HAVE YOU EVER HAD AN STD?: NO, HAD SEX IN THE LAST 12 MONTHS (VAGINAL, ORAL, OR ANAL)?: YES, WITH: WOMEN ONLY, HAVE YOU EVER HAD AN STD?: NO. 08/26/18 1015 REVIEWED WITH PT. AD11/16/18 REVIEWED WITH PT. ADREVIEWED WITH PATIENT 12/07/18 1239 JS REVIEWED WITH PT 03/10/19 1416 BVREVIEWED WITH PT 04/19/19 0959 BVREVIEWED WITH PT 06/16/19 0918 NLJREVIEWED WITH PATIENT 06/16/19 0933 JS08/11/19 1213 REVIEWED WITH PT. AD. HOSPITALIZATION/MAJOR DIAGNOSTIC PROCEDURE [place], [place] 2008 HERNIA REPAIR 1988 REVIEW OF SYSTEMS REVIEWED BY: PROVIDER: . CONSTITUTIONAL: ANY CHANGE IN YOUR MEDICAL CONDITION? NO . CHILLS NO . FEVER NO . INFECTION: DO YOU HAVE NEW INFECTIONS? NO . DO YOU HAVE HISTORY OF MRSA? NO . MUSCULOSKELETAL: ANY NEW PATTERNS OF PAIN OR NUMBNESS? NO . GASTROENTEROLOGY: ANY NEW CHANGE IN BOWEL CONTROL? NO . GENITOURINARY: ANY NEW CHANGE IN BLADDER CONTROL? NO . IS THERE A CHANCE YOU COULD BE ? NO . HEMATOLOGY/LYMPH: DO YOU TAKE ANY BLOOD THINNERS? (FOR EXAMPLE- COUMADIN, PLAVIX, AGGRENOX, PLATEL, PRADAXA, OR XARELTO) NO . WHEN WAS YOUR LAST DOSE? DATE: TIME: . NEUROLOGY: HAVE YOU FALLEN IN THE PAST 12 MONTHS? NO . ANY NEW EXTREMITY NUMBNESS OR WEAKNESS? NO . CARDIOLOGY: DO YOU HAVE A PACEMAKER OR DEFIBRILLATOR? NO . RESPIRATORY: HAVE YOU BEEN SICK IN THE PAST WEEK? NO . FEVER NO . FLU LIKE SYMPTOMS? NO . COUGH NO . INTEGUMENTARY: DO YOU HAVE ANY RASHES OR OPEN SORES? NO . ALLERGIC/IMMUNO: ARE YOU ALLERGIC TO IV DYE? NO . ANY NEW ALLERGIES? NO . PSYCHIATRIC: DO YOU HAVE THOUGHTS OF HURTING YOURSELF OR SOMEONE ELSE? NO . ARE YOU ABUSED, NEGLECTED, OR IN AN UNSAFE ENVIRONMENT? NO . ENDOCRINOLOGY: ARE YOU DIABETIC? NO . OTHER: DO YOU NEED ANY PRESCRIPTIONS? NO . IF YES, PLEASE LIST: ____ . ANY NEW PROBLEMS WITH YOUR MEDICATIONS? NO . WHEN DID YOU LAST EAT? 08/10 2100 . WHEN DID YOU LAST DRINK? 08/11 0730 . WHAT DID YOU LAST DRINK? WATER . NAME OF PERSON DRIVING YOU HOME? TANIA . DO YOU HAVE ANY OTHER QUESTIONS OR CONCERNS NO . VITAL SIGNS WT 320.8 LBS, HT 70.5 IN, BMI 45.37 INDEX, BP 126/63 MM HG, HR 82 /MIN, RR 18 /MIN, TEMP 98.0 F, OXYGEN SAT % 97%, SAFE IN ENV? (Y/N) Y, NA INITIALS NV 11:23, REVIEWED BY: AD. ASSESSMENTS SPONDYLOSIS OF LUMBAR REGION WITHOUT MYELOPATHY OR RADICULOPATHY - M47.816 (PRIMARY) SPONDYLOSIS WITHOUT MYELOPATHY OR RADICULOPATHY, LUMBOSACRAL REGION - M47.817 TREATMENT SPONDYLOSIS OF LUMBAR REGION WITHOUT MYELOPATHY OR RADICULOPATHY SMC FACET BLOCK (PAIN)[id number] PROCEDURES PN RADIOFREQUENCY PRE PROCEDURE DIAGNOSES 1. LUMBAR SPONDYLOSIS. 2. LUMBOSACRAL SPONDYLOSIS POST PROCEDURE DIAGNOSES 1. LUMBAR SPONDYLOSIS. 2. LUMBOSACRAL SPONDYLOSIS PROCEDURE RIGHT L4-L5 AND RIGHT L5-S1 LUMBAR FACET RADIOFREQUENCY SURGEON DR. PRAKASH SMITH DYNAMITER NONE ANESTHESIA LOCAL PRE PROCEDURE REPORT THE PATIENT HAS HISTORY OF CHRONIC LOW BACK PAIN. I EVALUATED THE PATIENT AND REVIEWED THE CHART. I WENT OVER THE RISKS, ALTERNATIVES, AND BENEFITS ASSOCIATED WITH THIS PROCEDURE. THE PATIENT WOULD LIKE TO PROCEED AND GIVES CONSENT TO PERFORM THE PROCEDURE. THE PATIENT DENIES UNEXPLAINABLE WEIGHT LOSS, FEVER, CHILLS, OR NEW CHANGES IN URINARY OR BOWEL CONTROL DESCRIPTION OF PROCEDURE THE PATIENT WAS BROUGHT TO THE PROCEDURE ROOM AND PLACED IN THE PRONE POSITION. THE LUMBOSACRAL AREA WAS CLEANED WITH CHLORAPREP SOLUTION AND DRAPED ASEPTICALLY. THE PROCEDURE WAS DONE UNDER STERILE CONDITIONS. I CHECKED LATERALITY AND THE LEVEL WHERE THE PROCEDURE WAS GOING TO BE PERFORMED WITH THE PATIENT AND THE SUPPORTING STAFF AT THE MOMENT OF THE TIME OUT IN THE PROCEDURE ROOM. UNDER FLUOROSCOPIC GUIDANCE, TARGETS WERE SELECTED AT THE INTERSECTION OF THE RIGHT TRANSVERSE PROCESS OF L4, L5 AND ALA OF S1 WITH ITS RESPECTIVE SUPERIOR ARTICULAR PROCESS. LIDOCAINE WAS USED TO NUMB THE SKIN AND THE SUBCUTANEOUS TISSUE BELOW IT. RADIOFREQUENCY NEEDLES 22-GAUGE 15 CM LONG WITH 10 MM ACTIVE CURVE TIP WERE ADVANCED UNDER FLUOROSCOPIC GUIDANCE AND FOLLOWING PATIENT FEEDBACK UNTIL THE TARGET AREA WAS REACHED. POSITION OF THE NEEDLES WAS VERIFIED WITH AP AND LATERAL VIEWS. AFTER PROPER POSITION OF THE NEEDLE WAS ACHIEVED, WE WORKED WITH THE RIGHT SELECTED MEDIAN BRANCHES OF L3, L4 AND THE DORSAL RAMI OF L5. WE MEASURED THE CORRESPONDING IMPEDANCES, SENSORY STIMULATION AND MOTOR RESPONSES INDICATED IN THE RADIOFREQUENCY WORKSHEET. POSITION OF THE NEEDLES WAS VERIFIED AGAIN WITH AP AND LATERAL VIEWS. LIDOCAINE 1%, 2 ML, WAS INJECTED AT EACH LEVEL. RADIOFREQUENCY WAS DONE AT EACH LEVEL AT 80 DEGREES FOR 90 SECONDS. AFTER RADIOFREQUENCY WAS DONE, THE PATIENT RECEIVED BUPIVACAINE 0.125% 1 CC WITH KENALOG 5 MG AT EACH SITE. THERE WAS NO EVIDENCE OF BLOOD, PARESTHESIA OR CEREBROSPINAL FLUID DURING THE PROCEDURE. THE PATIENT WAS SENT TO THE RECOVERY ROOM. THE PATIENT WAS MOVING THE EXTREMITIES AND DOING WELL. THERE WAS NO COMPLICATION DURING THE PROCEDURE. FLUOROSCOPY TIME WAS 28 SECONDS POST PROCEDURE NOTE THE PATIENT WILL BE SEEN IN A FOLLOW UP IN THE NEXT FEW WEEKS. INSTRUCTIONS WERE GIVEN, QUESTIONS WERE ANSWERED, AND THE PATIENT EXPRESSED UNDERSTANDING AND AGREES WITH THE PLAN. I, WILLIAM RODRIGUEZ, DOCUMENTED THE ABOVE INFORMATION ACTING A SCRIBE FOR DR. SMITH. I HAVE REVIEWED THE ABOVE DOCUMENT, WRITTEN BY WILLIAM RODRIGUEZ SCRIBTara AND I VERIFY THAT IT IS ACCURATE. PROCEDURE CODES 96103 DESTROY LUMB/SAC FACET JNT, [place]IF[place]: [place] [address]99 DESTROY L/S FACET JNT ADDL, MODIFIERS: RT 6045F RADXPS IN END [id number] PXD DISPOSITION & COMMUNICATION FOLLOW UP 3 WEEKS ELECTRONICALLY SIGNED BY PRAKASH SMITH MD, MD ON 08/18/2019 AT 02:02 PM EST DISCLAIMER : THIS IS A VISIT SUMMARY EXTRACTED FROM THE [employer] CHART. IT IS NOT A COPY OF THE [employer] PROGRESS NOTE. MTDD
== END ==
LOC: M PAIN 11:15
PROVIDERS: ATTEND Anesthesiology
DX: M47.816 Spondylosis without myelopathy or radiculopathy, lumbar region (principal); M47.817 Spondylosis without myelopathy or radiculopathy, lumbosacral region
CPT/HCPCS: 64635; 64636; J3301

== ENCOUNTER → 2019-08-30 | Outpatient (CLI) | payer OTHER ==
[~2019-08-30] MED LIST changes: -BUPIVACAINE HCL 0.25% 30 ML VIAL As Ordered ONE; -ISOVUE-M 300 61% 15ML VIAL (Q9967) As Ordered ONE; -LIDOCAINE 1% SDV INJ 30 ML VIAL As Ordered ONE; +OMEP-172 PO; -OMEP20CA4 PO; -TRIAMCINOLONE ACETONIDE SUSP 40 MG/ML VIAL (J3301) As Ordered ONE
--- NOTE | 2019-09-13 04:12 | ECWPNPC ---
PATIENT NAME: KRYSTLE LOONEY : 1985 GENDER: MALE VISIT DATE: 08/30/2019 DISCHARGE DATE: 08/30/19 0000 VISIT LOCKED DATE TIME: PHYSICIAN: MARINA ALLISON RESOURCE: MARINA ALLISON REASON FOR APPOINTMENT 1. POST RF HISTORY OF PRESENT ILLNESS HISTORY OF PRESENT ILLNESS: HERE FOR POST PROCEDURE F/U.HAD RIGHT L4/5-L5/S1 RF ON 08/11 19.HAD EXPERIENCED SIGNIFICANT REDUCTION IN RIGHT LOW BACK PAIN THAT CONTINUES TODAY.CHIEF AREA OF PAIN IS LEFT LOW BACK WITH RADIATION INTO LEFT THIGH. RATING PAIN VAS 1-3/10 RIGHT LOW BACK AND 3-6/10 VAS LEFT LOW BACK PAIN.DISCUSSED DOING LFB DX #2 LEFT. PAIN THE PATIENT DESCRIBES THE PAIN... FALL RISK SCREENING: SCREENING :NO FALLS REPORTED IN THE LAST YEAR CURRENT MEDICATIONS TAKING LIPITOR 20 MG TABLET 1 TABLET ORALLY ONCE A DAY TAKING [facility] FLUTICASONE PROPIONATE 50 MCG/ACT SUSPENSION 1 SPRAY IN EACH NOSTRIL NASALLY ONCE A DAY TAKING LISINOPRIL 5 MG TABLET DIRECTED ORALLY DAILY TAKING ZITHROMAX 250 MG TABLET 1 TABLET ORALLY ONCE A DAY TAKING ALBUTEROL SULFATE HFA 108 (90 BASE) MCG/ACT AEROSOL SOLUTION 2 PUFFS INHALATION EVERY 4-6 HOURS NEEDED TAKING LIDOCAINE 5 % PATCH 1 PATCH TO INTACT SKIN REMOVE AFTER 12 HOURS EXTERNALLY ONCE A DAY NEEDED 12 HRS ON AND 12 HRS OFF TAKING WRIST SPLINT RIGHT WRIST NEEDED TAKING ACCUTANE 20 MGS 1 TAB ORAL DAILY TAKING TRAMADOL HCL 50 MG TABLET 1-2 TAB ORALLY EVERY 6 HRS MDD4 TAKING MAY HAVE - - TURMERIC 2 CAPSULE ORALLY DAILY TAKING ALEVE 220 MG TABLET 1 TABLET WITH FOOD OR MILK NEEDED ORALLY EVERY 12 HRS TAKING MELOXICAM 15 MG TABLET 1 TABLET PRN ORALLY ONCE A DAY TAKING TIZANIDINE HCL 2 MG TABLET 1 TABLET NEEDED - TAKES 1/2 TABLET DAILY ORALLY FOR SPASMS THREE TIMES A DAY MDD3 TAKING LYRICA 200 MG CAPSULE 1 CAPSULE ORALLY BID MDD2 TAKING TRIKAFTA 100-50-75 & 150 MG TABLET THERAPY PACK DIRECTED ORALLY DAILY TAKING MULTIVITAMIN ADULT - TABLET 2 TABLETS ORALLY DAILY NOT-TAKING KALYDECO 150 MG TABLET 1 TABLET ORALLY TWICE DAILY NOT-TAKING MULTI VITAMIN W/D-3 - TABLET 2 TABLETS ORALLY ONCE A DAY NOT-TAKING FLUOXETINE HCL 10 MG CAPSULE 1 CAPSULE IN THE MORNING ORALLY ONCE A DAY MEDICATION LIST REVIEWED AND RECONCILED WITH THE PATIENT PAST MEDICAL HISTORY CLASSIC MIGRAINE WITH AURA ATYPICAL DEPRESSIVE DISORDER/ANXIETY/ADJUSTMENT DISORDER ATTENTION 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 TO LINEZOLIDE AND CLINDAMYCIN ONLY 2016 PANCREATITIS RIGHT TORN LIGAMENT IN RIGHT OBESITY ALLERGIES AMITRIPTYLINE HCL: EXCESSIVE SOMNOLENCE - SIDE EFFECTS GABAPENTIN: GETS SUICIDAL THOUGHTS - SIDE EFFECTS SURGICAL HISTORY DISC REPLACED C5-6 2008 BILATERAL INGUINAL HERNIA REPAIR 1989 CARPAL TUNNEL REPAIR LEFT 04/2018 RIGHT CARPAL TUNNEL REPAIR 01/2019 RIGHT WRIST LIGAMENT REPAIR 05/16/19 FAMILY HISTORY FATHER: ALIVE 62 YRS, NO KNOWN MEDICAL PROBLEMS MOTHER: ALIVE 60 YRS, HYPOGLYCEMIA, DEPRESSION,, DIAGNOSED WITH UNSPECIFIED NONPSYCHOTIC MENTAL DISORDER FOLLOWING ORGANIC BRAIN DAMAGE SIBLINGS: BRO- KIDNEY PROBLEM PATERNAL GRAND FATHER: , UNKNOWN PATERNAL GRAND MOTHER: , STROKE MATERNAL GRAND FATHER: , HEART ATTACK MULTIPLE, CKD, PROSTATE CANCER, DM TYOE 2 MATERNAL GRAND MOTHER: , PANCREATIC CANCER MATERNAL UNCLE: HTN MATERNAL AUNT: DM, 1 BROTHER(S) , 2 SISTER(S) . SOCIAL HISTORY GENERAL: TOBACCO USE ARE YOU A:USES TOBACCO IN OTHER FORMS TRYING TO QUIT ADDITIONAL FINDINGS: TOBACCO USERCHEWS TOBACCO ALSO USING NON TOBACCO CHEW VAPORNO E-CIGARETTENO SMOKING CESSATION INFORMATION GIVEN08/11/2019 HIV / HEP-C SCREENING HIV TEST OFFERED TO PATIENT:YES DATE OFFERED:03/03/2017 TEST ACCEPTED:NO HEP-C TEST OFFERED TO PATIENT:YES DATE OFFERED:03/03/2017 REASON:PATIENT DECLINED TEST ACCEPTED:NO REASON:PATIENT DECLINED OTHERS AT HOME: SPOUSE, , SPOUSE,. HOUSING: OWNS HOME, , OWNS HOME,. EDUCATION BACHELOR- MATH, BACHELOR- MATH, BACHELOR- MATH, BACHELOR- MATH, BACHELOR- MATH, BACHELOR- MATH. DIET: REGULAR , LOW FAT, LOW CHOLESTEROL, CARBOHYDRATE CONTROLLED, REGULAR , LOW FAT, LOW CHOLESTEROL, CARBOHYDRATE CONTROLLED. LANGUAGE LANGUAGES SPOKEN:CHILEAN DOMESTIC VIOLENCE DO YOU FEEL SAFE IN YOUR ENVIRONMENT?YES BMI CARE GOAL FOLLOW-UP ABOVE NORMAL BMI FOLLOW-UPEXERCISE PROMOTION: STRENGTH TRAINING RECREATIONAL DRUG USE DRUG USE? NONE EXERCISE: NO REGULAR EXERCISE, WALKS, NO REGULAR EXERCISE, WALKS. LEARNING BARRIERS / SPECIAL NEEDS CHANGE FROM LAST VISIT?NO BARRIERS TO LEARNING?NO HEARING IMPAIRED?NO VISION IMPAIRED?YES COGNITIVELY IMPAIRED?NO :CORRECTIVE LENSES READINESS TO LEARN?YES LEARNING PREFERENCES?NO LEARNING CAPABILITIES PRESENT?YES EMOTIONAL BARRIERS?NO SPECIAL DEVICES?NO PLATE PUT IN WORKER NEEDED?NO PAIN CLINIC PFS, CLERGY, PUBLIC HEALTH REFERRALS PFS REFERRAL NEEDED?NO CLERGY REFERRAL NEEDED?NO PUBLIC HEALTH REFERRAL NEEDED?NO WAS THE PROVIDER NOTIFIED OF ANY PERTINENT INFO? N/A HAS THE PATIENT BEEN EDUCATED REGARDING HIS/HER PLAN OF CARE?YES HAS THE PATIENT BEEN EDUCATED REGARDING PAIN, THE RISK FOR PAIN, THE IMPORTANCE OF EFFECTIVE PAIN MANAGEMENT, AND THE PAIN ASSESSMENT PROCESS?YES LATEX QUESTIONNAIRE LATEX ALLERGY : HAVE YOU EVER DEVELOPED ANY TYPE OF REACTION AFTER HANDLING LATEX PRODUCTS SUCH RUBBER GLOVES, CONDOMS, DIAPHRAGMS, BALLOONS, SOCKS, OR UNDERWEAR?NO LATEX ALLERGY : HAVE YOU EVER DEVELOPED ANY TYPE OF REACTION DURING OR AFTER DENTAL APPOINTMENT, VAGINAL/RECTAL EXAMINATION, SURGICAL PROCEDURE, OR ANY OTHER EXPOSURE?NO DATE ASKED : 05/26/2019 LATEX RISK : HAVE YOU EVER HAD ANY DIFFICULTY BREATHING OR HIVES AFTER EATING OR HANDLING ANY FRUITS, OR VEGETABLES; SUCH KIWI, BANANAS, STONE FRUITS, OR CHESTNUTSNO LATEX RISK : DO YOU HAVE A PREVIOUS PERSONAL HISTORY OF MORE THAN NINE SURGERIES, SPINA BIFIDA, OR REPEATED CATHERIZATIONS? NO LATEX RISK : ARE YOU FREQUENTLY EXPOSED TO LATEX PRODUCTS IN YOUR OCCUPATION?NO CAFFEINE CAFFEINE USE?NO ADVANCE DIRECTIVE ADVANCE DIRECTIVE DISCUSSED WITH PATIENT:YES PT HAS HCP-- TANIA [phone] FORM IS ON FILE BAPTISM [id number] PRESYBETERIAN MARITAL STATUS: , . ALCOHOL SCREENING DID YOU HAVE A DRINK CONTAINING ALCOHOL IN THE PAST YEAR?YES HOW OFTEN DID YOU HAVE SIX OR MORE DRINKS ON ONE OCCASION IN THE PAST YEAR?NEVER (0 POINTS) HOW MANY DRINKS DID YOU HAVE ON A TYPICAL DAY WHEN YOU WERE DRINKING IN THE PAST YEAR?3 OR 4 (1 POINT) HOW OFTEN DID YOU HAVE A DRINK CONTAINING ALCOHOL IN THE PAST YEAR?MONTHLY OR LESS (1 POINT) POINTS2 INTERPRETATIONNEGATIVE OCCUPATION: [employer], MOVED BACK FROM [facility] WORKED IN [employer], , [employer], MOVED BACK FROM [facility] [facility] WORKED IN [employer],. SEXUAL HX HAD SEX IN THE LAST 12 MONTHS (VAGINAL, ORAL, OR ANAL)?: YES, WITH: WOMEN ONLY, HAVE YOU EVER HAD AN STD?: NO, HAD SEX IN THE LAST 12 MONTHS (VAGINAL, ORAL, OR ANAL)?: YES, WITH: WOMEN ONLY, HAVE YOU EVER HAD AN STD?: NO, HAD SEX IN THE LAST 12 MONTHS (VAGINAL, ORAL, OR ANAL)?: YES, WITH: WOMEN ONLY, HAVE YOU EVER HAD AN STD?: NO, HAD SEX IN THE LAST 12 MONTHS (VAGINAL, ORAL, OR ANAL)?: YES, WITH: WOMEN ONLY, HAVE YOU EVER HAD AN STD?: NO, HAD SEX IN THE LAST 12 MONTHS (VAGINAL, ORAL, OR ANAL)?: YES, WITH: WOMEN ONLY, HAVE YOU EVER HAD AN STD?: NO, HAD SEX IN THE LAST 12 MONTHS (VAGINAL, ORAL, OR ANAL)?: YES, WITH: WOMEN ONLY, HAVE YOU EVER HAD AN STD?: NO. 08/26/18 1015 REVIEWED WITH PT. AD11/16/18 REVIEWED WITH PT. ADREVIEWED WITH PATIENT 12/07/18 1239 JS REVIEWED WITH PT 03/10/19 1416 BVREVIEWED WITH PT 04/19/19 0959 BVREVIEWED WITH PT 06/16/19 0918 NLJREVIEWED WITH PATIENT 06/16/19 0933 JS08/11/19 1213 REVIEWED WITH PT. AD. HOSPITALIZATION/MAJOR DIAGNOSTIC PROCEDURE [place], [place] 2008 HERNIA REPAIR 1988 REVIEW OF SYSTEMS REVIEWED BY: PROVIDER: MARINA OSWALD . CONSTITUTIONAL: ANY CHANGE IN YOUR MEDICAL CONDITION? NO . CHILLS NO . FEVER NO . INFECTION: DO YOU HAVE NEW INFECTIONS? NO . DO YOU HAVE HISTORY OF MRSA? NO . MUSCULOSKELETAL: ANY NEW PATTERNS OF PAIN OR NUMBNESS? NO . GASTROENTEROLOGY: ANY NEW CHANGE IN BOWEL CONTROL? NO . GENITOURINARY: ANY NEW CHANGE IN BLADDER CONTROL? NO . IS THERE A CHANCE YOU COULD BE ? NO . HEMATOLOGY/LYMPH: DO YOU TAKE ANY BLOOD THINNERS? (FOR EXAMPLE- COUMADIN, PLAVIX, AGGRENOX, PLATEL, PRADAXA, OR XARELTO) NO . WHEN WAS YOUR LAST DOSE? DATE: TIME: . NEUROLOGY: HAVE YOU FALLEN IN THE PAST 12 MONTHS? NO . ANY NEW EXTREMITY NUMBNESS OR WEAKNESS? NO . CARDIOLOGY: DO YOU HAVE A PACEMAKER OR DEFIBRILLATOR? NO . RESPIRATORY: HAVE YOU BEEN SICK IN THE PAST WEEK? YES - BUG BEFORE . FEVER NO . FLU LIKE SYMPTOMS? NO . COUGH YES . INTEGUMENTARY: DO YOU HAVE ANY RASHES OR OPEN SORES? NO . ALLERGIC/IMMUNO: ARE YOU ALLERGIC TO IV DYE? NO . ANY NEW ALLERGIES? NO . PSYCHIATRIC: DO YOU HAVE THOUGHTS OF HURTING YOURSELF OR SOMEONE ELSE? NO . ARE YOU ABUSED, NEGLECTED, OR IN AN UNSAFE ENVIRONMENT? NO . ENDOCRINOLOGY: ARE YOU DIABETIC? NO . OTHER: DO YOU NEED ANY PRESCRIPTIONS? NO . IF YES, PLEASE LIST: ____ . ANY NEW PROBLEMS WITH YOUR MEDICATIONS? NO . WHEN DID YOU LAST EAT? ____ . WHEN DID YOU LAST DRINK? ____ . WHAT DID YOU LAST DRINK? ____ . NAME OF PERSON DRIVING YOU HOME? ____ . DO YOU HAVE ANY OTHER QUESTIONS OR CONCERNS NO . VITAL SIGNS WT 320.8 LBS, HT 70.5 IN, BMI 45.37 INDEX, BP 140/73 MM HG, HR 81 /MIN, RR 18 /MIN, TEMP 96.5 F, OXYGEN SAT % 97%, NA INITIALS AW 0900, REVIEWED BY: MARGARET. EXAMINATION GENERAL EXAMINATION: GENERAL AWAKE,ALERT ,PLEAASANT . PSYCH AFFECT NORMAL . LUNGS: LUNG SUÁREZ ARE CLEAR TO AUSCULTATION BILATERALLY. GOOD MOVEMENT OF AIR . HEART: S1, S2 IN A REGULAR RATE AND RHYTHM. NO SIGNIFICANT MURMURS, RUBS OR GALLOPS NOTED . FOR BILAT. SIJ PALPATION:TENDER OVER LEFT L4/5-L5/S1 LUMBAR FACETS WITH FACET LOADING .. DIAGNOSTIC TESTS REVIEWED MRI L/S SPINE-02/18/17. ASSESSMENTS LUMBOSACRAL SPONDYLOSIS WITH RADICULOPATHY - M47.27 (PRIMARY) TREATMENT LUMBOSACRAL SPONDYLOSIS WITH RADICULOPATHY REFILL TRAMADOL HCL TABLET, 50 MG, 1-2 TAB, ORALLY, EVERY 6 HRS MDD4, 30 DAY(S), 60, REFILLS 1 NOTES: ISTOP REGISTRY REVIEWED AND DEMONSTRATES COMPLLIANCE. , RISKS OF NARCOTIC/OPIOD MEDICATIONS INCLUDES BUT IS NOT LIMITED TO RISK OF DEPENDANCE/DEVELOPMENT OF ADDICTION, MOOD DISTURBANCE AND DEPRESSION, OSTEOPOROSIS, HORMONAL AND LABIDAL CHANGES, RESPIRATORY DEPRESSION AND . PATIENT IS ADVISED NOT TO DRIVE OR DRINK ALCOHOL WHILE ON THESE MEDICATIONSLEFT L4/5-L5/S1 LFB DX. DISPOSITION & COMMUNICATION FOLLOW UP POST (REASON: LEFT L4/5-L5/S1 LFB DX) ELECTRONICALLY SIGNED BY MARGRET WEBER ON 09/12/2019 AT 09:33 AM EST DISCLAIMER : THIS IS A VISIT SUMMARY EXTRACTED FROM THE [facility] CHART. IT IS NOT A COPY OF THE [facility] PROGRESS NOTE. MTDD
== END ==
LOC: M PAIN 09:00
PROVIDERS: ATTEND Nurse Practitioner Family
DX: M47.27 Other spondylosis with radiculopathy, lumbosacral region (principal); G43.909 Migraine, unspecified, not intractable, without status migrainosus; Z86.59 Personal history of other mental and behavioral disorders; F17.220 Nicotine dependence, chewing tobacco, uncomplicated; Z88.8 Allergy status to other drugs, medicaments and biological substances; E66.01 Morbid (severe) obesity due to excess calories; Z68.42 Body mass index [BMI] 45.0-49.9, adult; Z79.891 Long term (current) use of opiate analgesic; Z79.899 Other long term (current) drug therapy

== ENCOUNTER → 2019-12-13 | Outpatient (CLI) | payer OTHER ==
[~2019-12-13] MED LIST changes: +BUPIVACAINE HCL 0.25% 30 ML VIAL As Ordered ONE; +ISOVUE-M 300 61% 15ML VIAL (Q9967) As Ordered ONE; +LIDOCAINE 1% SDV INJ 30 ML VIAL As Ordered ONE; -OMEP-172 PO; +OMEP1CAP73 PO
--- NOTE | 2019-12-13 12:04 | REP ---
Partial lumbar spine series: Three views . History: Injection procedure for pain. 1 minute 15 seconds of fluoroscopy time is reported. Findings: A sequence of three fluoroscopically obtained last image hold procedural spot radiographs of the lumbar spine document needle position and contrast injection associated with injection procedure. Electronically Signed by Dallas Rivera MD 12/13/2019 11:55 A
--- NOTE | 2019-12-23 03:36 | ECWPNPC ---
PATIENT NAME: KRYSTLE LOONEY : 1985 GENDER: MALE VISIT DATE: 12/13/2019 DISCHARGE DATE: 12/13/19 1211 VISIT LOCKED DATE TIME: PHYSICIAN: PRAKASH SMITH MD RESOURCE: PRAKASH SMITH MD REASON FOR APPOINTMENT 1. LEFT L4/5-L5/S1 LFB DX HISTORY OF PRESENT ILLNESS HISTORY OF PRESENT ILLNESS: PAIN THE PATIENT DESCRIBES THE PAIN... FALL RISK SCREENING: SCREENING :NO FALLS REPORTED IN THE LAST YEAR CURRENT MEDICATIONS TAKING LIPITOR 20 MG TABLET 1 TABLET ORALLY ONCE A DAY, NOTES: 12-12-192199 TAKING [facility] FLUTICASONE PROPIONATE 50 MCG/ACT SUSPENSION 1 SPRAY IN EACH NOSTRIL NASALLY ONCE A DAY, NOTES: 12-12-19799 TAKING LISINOPRIL 5 MG TABLET DIRECTED ORALLY DAILY, NOTES: 12-12-192199 TAKING ZITHROMAX 250 MG TABLET 1 TABLET ORALLY ONCE A DAY, NOTES: 12-13-19799 TAKING ALBUTEROL SULFATE HFA 108 (90 BASE) MCG/ACT AEROSOL SOLUTION 2 PUFFS INHALATION EVERY 4-6 HOURS NEEDED, NOTES: 2 WEEKS TAKING LIDOCAINE 5 % PATCH 1 PATCH TO INTACT SKIN REMOVE AFTER 12 HOURS EXTERNALLY ONCE A DAY NEEDED 12 HRS ON AND 12 HRS OFF, NOTES: 2 DAYS AGO TAKING WRIST SPLINT RIGHT WRIST NEEDED TAKING ACCUTANE 40 MGS 1 TAB ORAL DAILY, NOTES: 12-12-192199 TAKING TIZANIDINE HCL 2 MG TABLET 1 TABLET NEEDED - TAKES 1/2 TABLET DAILY ORALLY FOR SPASMS THREE TIMES A DAY MDD3, NOTES: 2 DAYS AGO TAKING LYRICA 200 MG CAPSULE 1 CAPSULE ORALLY BID MDD2, NOTES: 0712-13-19 TAKING TRIKAFTA 100-50-75 & 150 MG TABLET THERAPY PACK DIRECTED ORALLY DAILY, NOTES: 12-13-19 08 TAKING MULTIVITAMIN ADULT - TABLET 1 TABLET ORALLY DAILY, NOTES: 69912-13-19 TAKING TRAMADOL HCL 50 MG TABLET 1-2 TAB ORALLY EVERY 6 HRS MDD4, NOTES: 2 DAYS AGO TAKING MELOXICAM 15 MG TABLET 1 TABLET PRN ORALLY ONCE A DAY, NOTES: 12-12-192199 TAKING ZOLOFT 100 MG TABLET 1 TABLET ORALLY ONCE A DAY, NOTES: 12-12-192199 NOT-TAKING MAY HAVE - - TURMERIC 2 CAPSULE ORALLY DAILY NOT-TAKING ALEVE 220 MG TABLET 1 TABLET WITH FOOD OR MILK NEEDED ORALLY EVERY 12 HRS NOT-TAKING KALYDECO 150 MG TABLET 1 TABLET ORALLY TWICE DAILY NOT-TAKING MULTI VITAMIN W/D-3 - TABLET 2 TABLETS ORALLY ONCE A DAY NOT-TAKING FLUOXETINE HCL 10 MG CAPSULE 1 CAPSULE IN THE MORNING ORALLY ONCE A DAY MEDICATION LIST REVIEWED AND RECONCILED WITH THE PATIENT PAST MEDICAL HISTORY CLASSIC MIGRAINE WITH AURA ATYPICAL DEPRESSIVE DISORDER/ANXIETY/ADJUSTMENT DISORDER ATTENTION 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 TO LINEZOLIDE AND CLINDAMYCIN ONLY 2016 PANCREATITIS RIGHT TORN LIGAMENT IN RIGHT OBESITY HYPERTENSION ALLERGIES AMITRIPTYLINE HCL: EXCESSIVE SOMNOLENCE - SIDE EFFECTS GABAPENTIN: GETS SUICIDAL THOUGHTS - SIDE EFFECTS SURGICAL HISTORY DISC REPLACED C5-6 2008 BILATERAL INGUINAL HERNIA REPAIR 1989 CARPAL TUNNEL REPAIR LEFT 04/2018 RIGHT CARPAL TUNNEL REPAIR 01/2019 RIGHT WRIST LIGAMENT REPAIR 05/16/19 FAMILY HISTORY FATHER: ALIVE 63 YRS, NO KNOWN MEDICAL PROBLEMS MOTHER: ALIVE 61 YRS, HYPOGLYCEMIA, DEPRESSION,, DIAGNOSED WITH UNSPECIFIED NONPSYCHOTIC MENTAL DISORDER FOLLOWING ORGANIC BRAIN DAMAGE SIBLINGS: BRO- KIDNEY PROBLEM PATERNAL GRAND FATHER: , UNKNOWN PATERNAL GRAND MOTHER: , STROKE MATERNAL GRAND FATHER: , HEART ATTACK MULTIPLE, CKD, PROSTATE CANCER, DM TYOE 2 MATERNAL GRAND MOTHER: , PANCREATIC CANCER MATERNAL UNCLE: HTN MATERNAL AUNT: DM, 1 BROTHER(S) , 2 SISTER(S) . SOCIAL HISTORY GENERAL: TOBACCO USE ARE YOU A:USES TOBACCO IN OTHER FORMS TRYING TO QUIT ADDITIONAL FINDINGS: TOBACCO USERCHEWS TOBACCO ALSO USING NON TOBACCO CHEW VAPORNO E-CIGARETTENO SMOKING CESSATION INFORMATION GIVEN08/11/2019 HIV / HEP-C SCREENING HIV TEST OFFERED TO PATIENT:YES DATE OFFERED:03/03/2017 TEST ACCEPTED:NO HEP-C TEST OFFERED TO PATIENT:YES DATE OFFERED:03/03/2017 REASON:PATIENT DECLINED TEST ACCEPTED:NO REASON:PATIENT DECLINED OTHERS AT HOME: SPOUSE, , SPOUSE,. HOUSING: OWNS HOME, , OWNS HOME,. EDUCATION BACHELOR- MATH, BACHELOR- MATH, BACHELOR- MATH, BACHELOR- MATH, BACHELOR- MATH, BACHELOR- MATH. DIET: REGULAR , LOW FAT, LOW CHOLESTEROL, CARBOHYDRATE CONTROLLED, REGULAR , LOW FAT, LOW CHOLESTEROL, CARBOHYDRATE CONTROLLED. LANGUAGE LANGUAGES SPOKEN:PERSIAN DOMESTIC VIOLENCE DO YOU FEEL SAFE IN YOUR ENVIRONMENT?YES BMI CARE GOAL FOLLOW-UP ABOVE NORMAL BMI FOLLOW-UPEXERCISE PROMOTION: STRENGTH TRAINING RECREATIONAL DRUG USE DRUG USE? NONE EXERCISE: NO REGULAR EXERCISE, WALKS, NO REGULAR EXERCISE, WALKS. LEARNING BARRIERS / SPECIAL NEEDS CHANGE FROM LAST VISIT?NO BARRIERS TO LEARNING?NO HEARING IMPAIRED?NO VISION IMPAIRED?YES COGNITIVELY IMPAIRED?NO :CORRECTIVE LENSES READINESS TO LEARN?YES LEARNING PREFERENCES?NO LEARNING CAPABILITIES PRESENT?YES EMOTIONAL BARRIERS?NO SPECIAL DEVICES?NO SUPERVISOR PRINTING SHOP NEEDED?NO PAIN CLINIC PFS, CLERGY, PUBLIC HEALTH REFERRALS PFS REFERRAL NEEDED?NO CLERGY REFERRAL NEEDED?NO PUBLIC HEALTH REFERRAL NEEDED?NO WAS THE PROVIDER NOTIFIED OF ANY PERTINENT INFO? N/A HAS THE PATIENT BEEN EDUCATED REGARDING HIS/HER PLAN OF CARE?YES HAS THE PATIENT BEEN EDUCATED REGARDING PAIN, THE RISK FOR PAIN, THE IMPORTANCE OF EFFECTIVE PAIN MANAGEMENT, AND THE PAIN ASSESSMENT PROCESS?YES LATEX QUESTIONNAIRE LATEX ALLERGY : HAVE YOU EVER DEVELOPED ANY TYPE OF REACTION AFTER HANDLING LATEX PRODUCTS SUCH RUBBER GLOVES, CONDOMS, DIAPHRAGMS, BALLOONS, SOCKS, OR UNDERWEAR?NO LATEX ALLERGY : HAVE YOU EVER DEVELOPED ANY TYPE OF REACTION DURING OR AFTER DENTAL APPOINTMENT, VAGINAL/RECTAL EXAMINATION, SURGICAL PROCEDURE, OR ANY OTHER EXPOSURE?NO DATE ASKED : 05/26/2019 LATEX RISK : HAVE YOU EVER HAD ANY DIFFICULTY BREATHING OR HIVES AFTER EATING OR HANDLING ANY FRUITS, OR VEGETABLES; SUCH KIWI, BANANAS, STONE FRUITS, OR CHESTNUTSNO LATEX RISK : DO YOU HAVE A PREVIOUS PERSONAL HISTORY OF MORE THAN NINE SURGERIES, SPINA BIFIDA, OR REPEATED CATHERIZATIONS? NO LATEX RISK : ARE YOU FREQUENTLY EXPOSED TO LATEX PRODUCTS IN YOUR OCCUPATION?NO CAFFEINE CAFFEINE USE?NO ADVANCE DIRECTIVE ADVANCE DIRECTIVE DISCUSSED WITH PATIENT:YES PT HAS HCP-- TANIA [phone] FORM IS ON FILE PROTESTANT [id number] AMISH MARITAL STATUS: , . ALCOHOL SCREENING DID YOU HAVE A DRINK CONTAINING ALCOHOL IN THE PAST YEAR?YES HOW OFTEN DID YOU HAVE SIX OR MORE DRINKS ON ONE OCCASION IN THE PAST YEAR?NEVER (0 POINTS) HOW MANY DRINKS DID YOU HAVE ON A TYPICAL DAY WHEN YOU WERE DRINKING IN THE PAST YEAR?3 OR 4 (1 POINT) HOW OFTEN DID YOU HAVE A DRINK CONTAINING ALCOHOL IN THE PAST YEAR?MONTHLY OR LESS (1 POINT) POINTS2 INTERPRETATIONNEGATIVE OCCUPATION: [employer], MOVED BACK FROM [facility] WORKED IN [employer], , [employer], MOVED BACK FROM [facility] WORKED IN [employer],. SEXUAL HX HAD SEX IN THE LAST 12 MONTHS (VAGINAL, ORAL, OR ANAL)?: YES, WITH: WOMEN ONLY, HAVE YOU EVER HAD AN STD?: NO, HAD SEX IN THE LAST 12 MONTHS (VAGINAL, ORAL, OR ANAL)?: YES, WITH: WOMEN ONLY, HAVE YOU EVER HAD AN STD?: NO, HAD SEX IN THE LAST 12 MONTHS (VAGINAL, ORAL, OR ANAL)?: YES, WITH: WOMEN ONLY, HAVE YOU EVER HAD AN STD?: NO, HAD SEX IN THE LAST 12 MONTHS (VAGINAL, ORAL, OR ANAL)?: YES, WITH: WOMEN ONLY, HAVE YOU EVER HAD AN STD?: NO, HAD SEX IN THE LAST 12 MONTHS (VAGINAL, ORAL, OR ANAL)?: YES, WITH: WOMEN ONLY, HAVE YOU EVER HAD AN STD?: NO, HAD SEX IN THE LAST 12 MONTHS (VAGINAL, ORAL, OR ANAL)?: YES, WITH: WOMEN ONLY, HAVE YOU EVER HAD AN STD?: NO. 08/26/18 1015 REVIEWED WITH PT. AD11/16/18 REVIEWED WITH PT. ADREVIEWED WITH PATIENT 12/07/18 1239 JS REVIEWED WITH PT 03/10/19 1416 BVREVIEWED WITH PT 04/19/19 0959 BVREVIEWED WITH PT 06/16/19 0918 NLJREVIEWED WITH PATIENT 06/16/19 0933 JS08/11/19 1213 REVIEWED WITH PT. AD. HOSPITALIZATION/MAJOR DIAGNOSTIC PROCEDURE [place], [place] 2008 HERNIA REPAIR 1988 REVIEW OF SYSTEMS REVIEWED BY: PROVIDER: . CONSTITUTIONAL: ANY CHANGE IN YOUR MEDICAL CONDITION? NO . CHILLS NO . FEVER NO . INFECTION: DO YOU HAVE NEW INFECTIONS? NO . DO YOU HAVE HISTORY OF MRSA? NO . MUSCULOSKELETAL: ANY NEW PATTERNS OF PAIN OR NUMBNESS? NO . GASTROENTEROLOGY: ANY NEW CHANGE IN BOWEL CONTROL? NO . GENITOURINARY: ANY NEW CHANGE IN BLADDER CONTROL? NO . IS THERE A CHANCE YOU COULD BE ? NO . HEMATOLOGY/LYMPH: DO YOU TAKE ANY BLOOD THINNERS? (FOR EXAMPLE- COUMADIN, PLAVIX, AGGRENOX, PLATEL, PRADAXA, OR XARELTO) NO . WHEN WAS YOUR LAST DOSE? DATE: TIME: . NEUROLOGY: HAVE YOU FALLEN IN THE PAST 12 MONTHS? YES . ANY NEW EXTREMITY NUMBNESS OR WEAKNESS? NO . CARDIOLOGY: DO YOU HAVE A PACEMAKER OR DEFIBRILLATOR? NO . RESPIRATORY: HAVE YOU BEEN SICK IN THE PAST WEEK? NO . FEVER NO . FLU LIKE SYMPTOMS? NO . COUGH NO . INTEGUMENTARY: DO YOU HAVE ANY RASHES OR OPEN SORES? NO . ALLERGIC/IMMUNO: ARE YOU ALLERGIC TO IV DYE? NO . ANY NEW ALLERGIES? NO . PSYCHIATRIC: DO YOU HAVE THOUGHTS OF HURTING YOURSELF OR SOMEONE ELSE? NO . ARE YOU ABUSED, NEGLECTED, OR IN AN UNSAFE ENVIRONMENT? NO . ENDOCRINOLOGY: ARE YOU DIABETIC? NO . OTHER: DO YOU NEED ANY PRESCRIPTIONS? NO . IF YES, PLEASE LIST: ____ . ANY NEW PROBLEMS WITH YOUR MEDICATIONS? NO . WHEN DID YOU LAST EAT? 12/12/192299 . WHEN DID YOU LAST DRINK? 12/12/192299 . WHAT DID YOU LAST DRINK? WATER . NAME OF PERSON DRIVING YOU HOME? TANIA LOONEY . DO YOU HAVE ANY OTHER QUESTIONS OR CONCERNS NO . VITAL SIGNS WT 327.6 LBS, HT 70.5 IN, BMI 46.34 INDEX, BP 118/74 MM HG, HR 87 /MIN, RR 16 /MIN, TEMP 95.8 F, OXYGEN SAT % 98, REVIEWED BY: MARGARET. ASSESSMENTS SPONDYLOSIS WITHOUT MYELOPATHY OR RADICULOPATHY, LUMBAR REGION - M47.816 (PRIMARY) SPONDYLOSIS WITHOUT MYELOPATHY OR RADICULOPATHY, LUMBOSACRAL REGION - M47.817 PROCEDURES PN LUMBAR FACET BLOCK DIAGNOSTIC PRE PROCEDURE DIAGNOSIS LUMBAR SPONDYLOSIS, LUMBOSACRAL SPONDYLOSIS POST PROCEDURE DIAGNOSIS LUMBAR SPONDYLOSIS, LUMBOSACRAL SPONDYLOSIS PROCEDURE LEFT L4-L5 AND LEFT L5-S1 FACET BLOCK DIAGNOSTIC NUMBER [address] PRAKASH SMITH TOP STOP ATTACHER NONE ANESTHESIA LOCAL PRE PROCEDURE NOTE THE PATIENT WITH HISTORY OF CHRONIC LOW BACK PAIN. I EVALUATED THE PATIENT AND REVIEWED THE CHART. I WENT OVER THE RISKS, ALTERNATIVES, AND BENEFITS ASSOCIATED WITH THIS PROCEDURE. THE PATIENT WOULD LIKE TO PROCEED AND GAVE CONSENT TO PERFORM THE PROCEDURE. AGREED WITH THE PATIENT WE ARE DOING THIS PROCEDURE TO DETERMINE IF THE PATIENT IS A CANDIDATE FOR A RADIOFREQUENCY ABLATION OF THE FACETS JOINTS. THE PATIENT DENIES UNEXPLAINABLE WEIGHT LOSS, FEVER, CHILLS, OR NEW CHANGES IN URINARY OR BOWEL CONTROL DESCRIPTION OF PROCEDURE THE PATIENT WAS BROUGHT TO THE PROCEDURE ROOM AND PLACED IN THE PRONE POSITION. THE LUMBOSACRAL AREA WAS CLEANED WITH CHLORAPREP SOLUTION AND DRAPED ASEPTICALLY. THE PROCEDURE WAS DONE UNDER STERILE CONDITIONS. I CHECKED LATERALITY AND THE LEVEL WHERE THE PROCEDURE WAS GOING TO BE PERFORMED WITH THE PATIENT AND THE SUPPORTING STAFF AT THE MOMENT OF THE TIME OUT IN THE PROCEDURE ROOM. UNDER FLUOROSCOPIC GUIDANCE, TARGETS WERE SELECTED AT THE INTERSECTION OF THE LEFT TRANSVERSE PROCESS OF L4, L5 AND ALA OF S1 WITH ITS RESPECTIVE SUPERIOR ARTICULAR PROCESS. LIDOCAINE WAS USED TO NUMB THE SKIN AND THE SUBCUTANEOUS TISSUE BELOW IT. SPINAL NEEDLE, 22-GAUGE WAS ADVANCED UNDER FLUOROSCOPIC GUIDANCE AND FOLLOWING PATIENT FEEDBACK UNTIL THE TARGETS WERE REACHED. POSITION OF THE NEEDLES WAS VERIFIED WITH AP AND LATERAL VIEWS. AFTER PROPER POSITION OF THE NEEDLES WAS ACHIEVED, ISOVUE-M DYE 30% 0.1 ML WAS INJECTED AT EACH SITE SHOWING ADEQUATE SPREAD OF THE DYE. THEN A SOLUTION OF 0.4 ML OF BUPIVACAINE 0.25% WAS INJECTED AT EACH SITE. THERE WAS NO EVIDENCE OF BLOOD, PARESTHESIA OR CEREBROSPINAL FLUID DURING THE PROCEDURE. THE PATIENT WAS SENT TO THE RECOVERY ROOM. THE PATIENT WAS MOVING THE EXTREMITIES AND DOING WELL. THERE WAS NO COMPLICATION DURING THE PROCEDURE. FLUOROSCOPY TIME WAS 1 MINUTE 35 SECONDS POST PROCEDURE NOTE THE PATIENT WILL DOCUMENT HIS PAIN LEVEL AND RESPONSE TO THIS PROCEDURE EVERY 30 MINUTES. THE PATIENT WILL BE SEEN IN A FOLLOW UP IN THE NEXT FEW WEEKS. FURTHER DETERMINATION FOR HIS CASE WILL BE DONE AT THE NEXT VISIT. INSTRUCTIONS WERE GIVEN, QUESTIONS WERE ANSWERED, AND THE PATIENT EXPRESSED UNDERSTANDING AND AGREED WITH THE PLAN. I, WILLIAM RODRIGUEZ, DOCUMENTED THE ABOVE INFORMATION ACTING A SCRIBE FOR DR. SMITH. I HAVE REVIEWED THE ABOVE DOCUMENT, WRITTEN BY WILLIAM BONILLA AND I VERIFY THAT IT IS ACCURATE. DIAGNOSTIC IMAGING [facility] FACET BLOCK (PAIN)[id number] PROCEDURE CODES 55988 INJ PARAVERT F JNT L/S 1 LEV, [place]: [place] [address] INJ PARAVERT F JNT L/S 2 LEV, MODIFIERS: LT 6045F RADXPS IN END [id number] PXD DISPOSITION & COMMUNICATION FOLLOW UP 3 WEEKS ELECTRONICALLY SIGNED BY PRAKASH SMITH MD, MD ON 12/22/2019 AT 12:35 PM EDT DISCLAIMER : THIS IS A VISIT SUMMARY EXTRACTED FROM THE [employer] CHART. IT IS NOT A COPY OF THE [employer] PROGRESS NOTE. PINA
== END ==
LOC: M PAIN 10:00
PROVIDERS: ATTEND Anesthesiology
DX: M47.816 Spondylosis without myelopathy or radiculopathy, lumbar region (principal); M47.817 Spondylosis without myelopathy or radiculopathy, lumbosacral region; G43.109 Migraine with aura, not intractable, without status migrainosus; Z86.59 Personal history of other mental and behavioral disorders; R25.1 Tremor, unspecified; I10 Essential (primary) hypertension; F17.220 Nicotine dependence, chewing tobacco, uncomplicated; Z88.8 Allergy status to other drugs, medicaments and biological substances; E66.01 Morbid (severe) obesity due to excess calories; Z68.42 Body mass index [BMI] 45.0-49.9, adult; Z79.891 Long term (current) use of opiate analgesic; Z79.899 Other long term (current) drug therapy
CPT/HCPCS: 64493; 64494; Q9967

== ENCOUNTER → 2019-12-20 | Outpatient (CLI) | payer OTHER ==
[~2019-12-20] MED LIST changes: -BUPIVACAINE HCL 0.25% 30 ML VIAL As Ordered ONE; -ISOVUE-M 300 61% 15ML VIAL (Q9967) As Ordered ONE; -LIDOCAINE 1% SDV INJ 30 ML VIAL As Ordered ONE
--- NOTE | 2020-01-03 02:30 | ECWPNPC ---
PATIENT NAME: KRYSTLE LOONEY : 1985 GENDER: MALE VISIT DATE: 12/20/2019 DISCHARGE DATE: 12/20/19 1032 VISIT LOCKED DATE TIME: PHYSICIAN: MARINA ALLISON RESOURCE: MARINA ALLISON REASON FOR APPOINTMENT 1. POST LEFT L4/5-L5/S1 LFB DX HISTORY OF PRESENT ILLNESS HISTORY OF PRESENT ILLNESS: HERE FOR POST PROCEDURE F/U.HAD LEFT L4/5-L5/S1 LFBDX #2 ON 2019. REPORTING MARKED REDUCTION IN PAIN POST PROCEDURE X24 HOURS AT GREATER THAN 80%. PAIN THEN RETURNED TO BASELINE. RATING PAIN LEVEL A 4-6/10 VAS. PAIN IS AGGRAVATED WITH ANY ACTIVITY. PAIN IS LOCATED IN LEFT LOW BACK. DISCUSSED RADIOFREQUENCY PROCEDURE. PAIN THE PATIENT DESCRIBES THE PAIN... FALL RISK SCREENING: SCREENING :NO FALLS REPORTED IN THE LAST YEAR CURRENT MEDICATIONS TAKING LIPITOR 20 MG TABLET 1 TABLET ORALLY ONCE A DAY TAKING [facility] FLUTICASONE PROPIONATE 50 MCG/ACT SUSPENSION 1 SPRAY IN EACH NOSTRIL NASALLY ONCE A DAY TAKING LISINOPRIL 5 MG TABLET DIRECTED ORALLY DAILY TAKING ZITHROMAX 250 MG TABLET 1 TABLET ORALLY ONCE A DAY TAKING ALBUTEROL SULFATE HFA 108 (90 BASE) MCG/ACT AEROSOL SOLUTION 2 PUFFS INHALATION EVERY 4-6 HOURS NEEDED TAKING LIDOCAINE 5 % PATCH 1 PATCH TO INTACT SKIN REMOVE AFTER 12 HOURS EXTERNALLY ONCE A DAY NEEDED 12 HRS ON AND 12 HRS OFF TAKING WRIST SPLINT RIGHT WRIST NEEDED TAKING ACCUTANE 40 MGS 1 TAB ORAL DAILY TAKING TIZANIDINE HCL 2 MG TABLET 1 TABLET NEEDED - TAKES 1/2 TABLET DAILY ORALLY FOR SPASMS THREE TIMES A DAY MDD3 TAKING LYRICA 200 MG CAPSULE 1 CAPSULE ORALLY BID MDD2 TAKING TRIKAFTA 100-50-75 & 150 MG TABLET THERAPY PACK DIRECTED ORALLY DAILY TAKING MULTIVITAMIN ADULT - TABLET 1 TABLET ORALLY DAILY TAKING TRAMADOL HCL 50 MG TABLET 1-2 TAB ORALLY EVERY 6 HRS MDD4 TAKING MELOXICAM 15 MG TABLET 1 TABLET PRN ORALLY ONCE A DAY TAKING ZOLOFT 100 MG TABLET 1 TABLET ORALLY ONCE A DAY NOT-TAKING MAY HAVE - - TURMERIC 2 CAPSULE ORALLY DAILY NOT-TAKING ALEVE 220 MG TABLET 1 TABLET WITH FOOD OR MILK NEEDED ORALLY EVERY 12 HRS NOT-TAKING KALYDECO 150 MG TABLET 1 TABLET ORALLY TWICE DAILY NOT-TAKING MULTI VITAMIN W/D-3 - TABLET 2 TABLETS ORALLY ONCE A DAY NOT-TAKING FLUOXETINE HCL 10 MG CAPSULE 1 CAPSULE IN THE MORNING ORALLY ONCE A DAY MEDICATION LIST REVIEWED AND RECONCILED WITH THE PATIENT PAST MEDICAL HISTORY CLASSIC MIGRAINE WITH AURA ATYPICAL DEPRESSIVE DISORDER/ANXIETY/ADJUSTMENT DISORDER ATTENTION 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-[phone] TREMOR ERECTILE DYSFUNCTION HISTORY OF FOLLICULITIS STAPH EPIDERMITIS SENS. TO LINEZOLIDE AND CLINDAMYCIN ONLY 2016 PANCREATITIS RIGHT TORN LIGAMENT IN RIGHT OBESITY HYPERTENSION ALLERGIES AMITRIPTYLINE HCL: EXCESSIVE SOMNOLENCE - SIDE EFFECTS GABAPENTIN: GETS SUICIDAL THOUGHTS - SIDE EFFECTS SURGICAL HISTORY DISC REPLACED C5-6 2008 BILATERAL INGUINAL HERNIA REPAIR 1989 CARPAL TUNNEL REPAIR LEFT 04/2018 RIGHT CARPAL TUNNEL REPAIR 01/2019 RIGHT WRIST LIGAMENT REPAIR 05/16/19 FAMILY HISTORY FATHER: ALIVE 63 YRS, NO KNOWN MEDICAL PROBLEMS MOTHER: ALIVE 61 YRS, HYPOGLYCEMIA, DEPRESSION,, DIAGNOSED WITH UNSPECIFIED NONPSYCHOTIC MENTAL DISORDER FOLLOWING ORGANIC BRAIN DAMAGE SIBLINGS: BRO- KIDNEY PROBLEM PATERNAL GRAND FATHER: , UNKNOWN PATERNAL GRAND MOTHER: , STROKE MATERNAL GRAND FATHER: , HEART ATTACK MULTIPLE, CKD, PROSTATE CANCER, DM TYOE 2 MATERNAL GRAND MOTHER: , PANCREATIC CANCER MATERNAL UNCLE: HTN MATERNAL AUNT: DM, 1 BROTHER(S) , 2 SISTER(S) . SOCIAL HISTORY GENERAL: TOBACCO USE ARE YOU A:USES TOBACCO IN OTHER FORMS TRYING TO QUIT ADDITIONAL FINDINGS: TOBACCO USERCHEWS TOBACCO ALSO USING NON TOBACCO CHEW SMOKING CESSATION INFORMATION GIVEN12/20/2019 VAPORNO E-CIGARETTENO HIV / HEP-C SCREENING HIV TEST OFFERED TO PATIENT:YES DATE OFFERED:03/03/2017 TEST ACCEPTED:NO HEP-C TEST OFFERED TO PATIENT:YES DATE OFFERED:03/03/2017 REASON:PATIENT DECLINED TEST ACCEPTED:NO REASON:PATIENT DECLINED OTHERS AT HOME: SPOUSE, , SPOUSE,. HOUSING: OWNS HOME, , OWNS HOME,. EDUCATION BACHELOR- MATH, BACHELOR- MATH, BACHELOR- MATH, BACHELOR- MATH, BACHELOR- MATH, BACHELOR- MATH. DIET: REGULAR , LOW FAT, LOW CHOLESTEROL, CARBOHYDRATE CONTROLLED, REGULAR , LOW FAT, LOW CHOLESTEROL, CARBOHYDRATE CONTROLLED. LANGUAGE LANGUAGES SPOKEN:MALAY DOMESTIC VIOLENCE DO YOU FEEL SAFE IN YOUR ENVIRONMENT?YES NEW PATIENT PAIN DIARY TODAY'S VISIT 12/20/2019 PATIENT DESCRIBES PAIN :ACHING, HAVE IT ALL THE TIME, SHARP, STABBING, TENDER, THROBBING, SORE, SHOOTING FROM 0-10, WHAT LEVEL IS YOUR PAIN TODAY?4 PRECIPITATING FACTORS PT STATES ANY LIFTING, ACTIVITY WILL INCREASE PAIN LEVEL ALLEVIATING FACTORS RESTING, LAYING DOWN IS THERE A CHANCE YOU COULD BE ?NO HAVE YOU BEEN SICK IN THE LAST WEEK (COLD, COUGH, FEVER, FLU, ETC)NO DO YOU TAKE ANY BLOOD THINNERS?NO DO YOU HAVE ANY RASHES OR OPEN SORES?NO ANY CHANGE IN BOWEL OR BLADDER CONTROL?NO ARE YOU ALLERGIC TO SHELLFISH OR IV DYE?NO ARE YOU DIABETIC?NO DO YOU HAVE A PACEMAKER OR DEFIBRILLATOR?NO ANY NEW PROBLEMS WITH MEDICINES OR NEW ALLERGIESNO ANY NEW PATTERNS OF PAIN OR NUMBNESS?YES TOP OF LEFT FOOT, NUMBNESS SINCE PROCEDURE ANY CHANGE IN YOUR MEDICAL CONDITION?NO HAVE YOU FALLEN IN THE LAST 6 MONTHS?YES PT STATES THAT HE SLIPPED ON ICE IN PARKING LOT, NO INJURY, NO REPORT TO ED DO YOU USE ANY TYPE OF TOBACCO (SMOKE, SMOKELESS, CHEW, ETC.)YES ARE YOU ABUSED, NEGLECTED, OR IN AN UNSAFE ENVIRONMENT?NO DO YOU HAVE THOUGHTS OF HURTING YOURSELF OR SOMEONE ELSE?NO DO YOU NEED ANY PRESCRIPTIONS?NO DO YOU HAVE ANY OTHER QUESTIONS OR CONCERNS?NO BMI CARE GOAL FOLLOW-UP ABOVE NORMAL BMI FOLLOW-UPEXERCISE PROMOTION: STRENGTH TRAINING RECREATIONAL DRUG USE DRUG USE? NONE EXERCISE: NO REGULAR EXERCISE, WALKS, NO REGULAR EXERCISE, WALKS. LEARNING BARRIERS / SPECIAL NEEDS CHANGE FROM LAST VISIT?NO BARRIERS TO LEARNING?NO HEARING IMPAIRED?NO VISION IMPAIRED?YES COGNITIVELY IMPAIRED?NO :CORRECTIVE LENSES READINESS TO LEARN?YES LEARNING PREFERENCES?NO LEARNING CAPABILITIES PRESENT?YES EMOTIONAL BARRIERS?NO SPECIAL DEVICES?NO FIRE SPRINKLER APPARATUS INSPECTOR NEEDED?NO PAIN CLINIC PFS, CLERGY, PUBLIC HEALTH REFERRALS PFS REFERRAL NEEDED?NO CLERGY REFERRAL NEEDED?NO PUBLIC HEALTH REFERRAL NEEDED?NO WAS THE PROVIDER NOTIFIED OF ANY PERTINENT INFO?YES N/A HAS THE PATIENT BEEN EDUCATED REGARDING HIS/HER PLAN OF CARE?YES HAS THE PATIENT BEEN EDUCATED REGARDING PAIN, THE RISK FOR PAIN, THE IMPORTANCE OF EFFECTIVE PAIN MANAGEMENT, AND THE PAIN ASSESSMENT PROCESS?YES LATEX QUESTIONNAIRE LATEX ALLERGY : HAVE YOU EVER DEVELOPED ANY TYPE OF REACTION AFTER HANDLING LATEX PRODUCTS SUCH RUBBER GLOVES, CONDOMS, DIAPHRAGMS, BALLOONS, SOCKS, OR UNDERWEAR?NO LATEX ALLERGY : HAVE YOU EVER DEVELOPED ANY TYPE OF REACTION DURING OR AFTER DENTAL APPOINTMENT, VAGINAL/RECTAL EXAMINATION, SURGICAL PROCEDURE, OR ANY OTHER EXPOSURE?NO LATEX RISK : HAVE YOU EVER HAD ANY DIFFICULTY BREATHING OR HIVES AFTER EATING OR HANDLING ANY FRUITS, OR VEGETABLES; SUCH KIWI, BANANAS, STONE FRUITS, OR CHESTNUTSNO LATEX RISK : DO YOU HAVE A PREVIOUS PERSONAL HISTORY OF MORE THAN NINE SURGERIES, SPINA BIFIDA, OR REPEATED CATHERIZATIONS? NO LATEX RISK : ARE YOU FREQUENTLY EXPOSED TO LATEX PRODUCTS IN YOUR OCCUPATION?NO DATE ASKED : 12/20/2019 CAFFEINE CAFFEINE USE?NO ADVANCE DIRECTIVE ADVANCE DIRECTIVE DISCUSSED WITH PATIENT:YES PT HAS HCP-- TANIA [phone] FORM IS ON FILE PENTECOSTAL [id number] ZOROASTRIAN MARITAL STATUS: , . ALCOHOL SCREENING DID YOU HAVE A DRINK CONTAINING ALCOHOL IN THE PAST YEAR?YES HOW OFTEN DID YOU HAVE SIX OR MORE DRINKS ON ONE OCCASION IN THE PAST YEAR?NEVER (0 POINTS) HOW MANY DRINKS DID YOU HAVE ON A TYPICAL DAY WHEN YOU WERE DRINKING IN THE PAST YEAR?3 OR 4 (1 POINT) HOW OFTEN DID YOU HAVE A DRINK CONTAINING ALCOHOL IN THE PAST YEAR?MONTHLY OR LESS (1 POINT) POINTS2 INTERPRETATIONNEGATIVE OCCUPATION: [employer], MOVED BACK FROM [employer] [facility] WORKED IN [employer], , [employer], MOVED BACK FROM [employer] [facility] WORKED IN [employer],. SEXUAL HX HAD SEX IN THE LAST 12 MONTHS (VAGINAL, ORAL, OR ANAL)?: YES, WITH: WOMEN ONLY, HAVE YOU EVER HAD AN STD?: NO, HAD SEX IN THE LAST 12 MONTHS (VAGINAL, ORAL, OR ANAL)?: YES, WITH: WOMEN ONLY, HAVE YOU EVER HAD AN STD?: NO, HAD SEX IN THE LAST 12 MONTHS (VAGINAL, ORAL, OR ANAL)?: YES, WITH: WOMEN ONLY, HAVE YOU EVER HAD AN STD?: NO, HAD SEX IN THE LAST 12 MONTHS (VAGINAL, ORAL, OR ANAL)?: YES, WITH: WOMEN ONLY, HAVE YOU EVER HAD AN STD?: NO, HAD SEX IN THE LAST 12 MONTHS (VAGINAL, ORAL, OR ANAL)?: YES, WITH: WOMEN ONLY, HAVE YOU EVER HAD AN STD?: NO, HAD SEX IN THE LAST 12 MONTHS (VAGINAL, ORAL, OR ANAL)?: YES, WITH: WOMEN ONLY, HAVE YOU EVER HAD AN STD?: NO. HOSPITALIZATION/MAJOR DIAGNOSTIC PROCEDURE [place] 2008 HERNIA REPAIR 1988 REVIEW OF SYSTEMS REVIEWED BY: PROVIDER: MARINA OSWALD . CONSTITUTIONAL: ANY CHANGE IN YOUR MEDICAL CONDITION? NO . CHILLS NO . FEVER NO . INFECTION: DO YOU HAVE NEW INFECTIONS? NO . DO YOU HAVE HISTORY OF MRSA? NO . MUSCULOSKELETAL: ANY NEW PATTERNS OF PAIN OR NUMBNESS? NO . GASTROENTEROLOGY: ANY NEW CHANGE IN BOWEL CONTROL? NO . GENITOURINARY: ANY NEW CHANGE IN BLADDER CONTROL? NO . IS THERE A CHANCE YOU COULD BE ? NO . HEMATOLOGY/LYMPH: DO YOU TAKE ANY BLOOD THINNERS? (FOR EXAMPLE- COUMADIN, PLAVIX, AGGRENOX, PLATEL, PRADAXA, OR XARELTO) NO . WHEN WAS YOUR LAST DOSE? DATE: TIME: . NEUROLOGY: HAVE YOU FALLEN IN THE PAST 12 MONTHS? YES, PT STATES THAT HE SLIPPED ON ICE IN PARKING LOT, NO INJURY . ANY NEW EXTREMITY NUMBNESS OR WEAKNESS? NO . CARDIOLOGY: DO YOU HAVE A PACEMAKER OR DEFIBRILLATOR? NO . RESPIRATORY: HAVE YOU BEEN SICK IN THE PAST WEEK? NO . FEVER NO . FLU LIKE SYMPTOMS? NO . COUGH NO . INTEGUMENTARY: DO YOU HAVE ANY RASHES OR OPEN SORES? NO . ALLERGIC/IMMUNO: ARE YOU ALLERGIC TO IV DYE? NO . ANY NEW ALLERGIES? NO . PSYCHIATRIC: DO YOU HAVE THOUGHTS OF HURTING YOURSELF OR SOMEONE ELSE? NO . ARE YOU ABUSED, NEGLECTED, OR IN AN UNSAFE ENVIRONMENT? NO . ENDOCRINOLOGY: ARE YOU DIABETIC? NO . OTHER: DO YOU NEED ANY PRESCRIPTIONS? NO . IF YES, PLEASE LIST: ____ . ANY NEW PROBLEMS WITH YOUR MEDICATIONS? NO . WHEN DID YOU LAST EAT? ____ . WHEN DID YOU LAST DRINK? ____ . WHAT DID YOU LAST DRINK? ____ . NAME OF PERSON DRIVING YOU HOME? ____ . DO YOU HAVE ANY OTHER QUESTIONS OR CONCERNS NO . VITAL SIGNS WT 324.2 LBS, HT 70.5 IN, BMI 45.86 INDEX, BP 121/66 MM HG, HR 83 /MIN, RR 16 /MIN, TEMP 97.8 F, OXYGEN SAT % 96%, SAFE IN ENV? (Y/N) Y, NA INITIALS AW 0921, REVIEWED BY: DARREN. EXAMINATION GENERAL EXAMINATION: GENERAL AWAKE,ALERT ,PLEAASANT . PSYCH AFFECT NORMAL . LUNGS: LUNG SUÁREZ ARE CLEAR TO AUSCULTATION BILATERALLY. GOOD MOVEMENT OF AIR . HEART: S1, S2 IN A REGULAR RATE AND RHYTHM. NO SIGNIFICANT MURMURS, RUBS OR GALLOPS NOTED . LUMBAR:PALPATION:TENDER OVER LEFT L4/5-L5/S1 LUMBAR FACETS WITH FACET LOADING .. DIAGNOSTIC TESTS REVIEWED MRI L/S SPINE-02/18/17. ASSESSMENTS LUMBOSACRAL SPONDYLOSIS WITH RADICULOPATHY - M47.27 (PRIMARY) TREATMENT LUMBOSACRAL SPONDYLOSIS WITH RADICULOPATHY CONTINUE TRAMADOL HCL TABLET, 50 MG, 1-2 TAB, ORALLY, EVERY 6 HRS MDD4 CONTINUE MELOXICAM TABLET, 15 MG, 1 TABLET PRN, ORALLY, ONCE A DAY NOTES: LEFT L4/5-L5/S1 RF. PREVENTIVE MEDICINE PAIN CLINIC TEACHING: THE PATIENT HAS BEEN EDUCATED REGARDING PAIN, THE RISK FOR PAIN, THE IMPORTANCE OF EFFECTIVE PAIN MANAGEMENT, AND THE PAIN ASSESSMENT PROCESS. : REVIEWED AND DISCUSSED PRE-PROCEDURE INSTRUCTIONS WITH PATIENT FOR RADIOFREQUENCY, DISCUSSED DISCHARGE INSTRUCTIONS, PT ACKNOWLEDGED UNDERSTANDING, DS PROCEDURE CODES [id number] ESTABILISHED PATIENT [facility] FACILITY CHARGE DISPOSITION & COMMUNICATION FOLLOW UP POST (REASON: LEFT L4/5-L5/S1 RF) ELECTRONICALLY SIGNED BY MARGRET WEBER ON 01/02/2020 AT 01:57 PM EDT DISCLAIMER : THIS IS A VISIT SUMMARY EXTRACTED FROM THE [employer] CHART. IT IS NOT A COPY OF THE [employer] PROGRESS NOTE. PINA
== END ==
LOC: M PAIN 09:15
PROVIDERS: ATTEND Nurse Practitioner Family
DX: M47.27 Other spondylosis with radiculopathy, lumbosacral region (principal); G43.909 Migraine, unspecified, not intractable, without status migrainosus; Z86.59 Personal history of other mental and behavioral disorders; R25.1 Tremor, unspecified; I10 Essential (primary) hypertension; F17.220 Nicotine dependence, chewing tobacco, uncomplicated; Z88.8 Allergy status to other drugs, medicaments and biological substances; E66.01 Morbid (severe) obesity due to excess calories; Z68.42 Body mass index [BMI] 45.0-49.9, adult; Z79.891 Long term (current) use of opiate analgesic; Z79.899 Other long term (current) drug therapy

== ENCOUNTER → 2020-02-24 | Outpatient (CLI) | payer OTHER | LOC: M LABSMTC 10:02 | PROVIDERS: ATTEND Anesthesiology | DX: Z11.59 Encounter for screening for other viral diseases (principal) | CPT/HCPCS: C9803; U0003 ==

== ENCOUNTER → 2020-02-27 | Outpatient (CLI) | payer OTHER ==
[~2020-02-27] MED LIST changes: +BUPIVACAINE HCL 0.25% 30ML VIAL As Ordered ONE; +LIDOCAINE 1% SDV 30ML VIAL As Ordered ONE; +dexameTHASONE 10MG/1ML VIAL PRES.FREE (J1100 PER 1MG) As Ordered ONE
--- NOTE | 2020-02-27 15:48 | REP ---
C-ARM VIEWS LUMBAR SPINE: CLINICAL HISTORY: Pain. Three C-arm views of the lumbar spine performed during injection by Dr. Kendall. [place] are seen along the lower lumbar spine region. 1 minutes 35 seconds fluoroscopy time utilized. Electronically Signed by Alex Palm MD 02/28/2020 01:36 P
--- NOTE | 2020-02-29 01:20 | ECWPNPC ---
PATIENT NAME: KRYSTLE LOONEY : 1985 GENDER: MALE VISIT DATE: 02/27/2020 DISCHARGE DATE: 02/27/20 1352 VISIT LOCKED DATE TIME: PHYSICIAN: PRAKASH SMITH MD RESOURCE: PRAKASH SMITH MD REASON FOR APPOINTMENT 1. LEFT L4/L5, L5/S1 RADIO FREQUENCY HISTORY OF PRESENT ILLNESS GENERAL: -. FALL RISK SCREENING: SCREENING :NO FALLS REPORTED IN THE LAST YEAR PAIN SCREENING: PATIENT HAS A COMPLAINT OF ACUTE OR CHRONIC PAIN :YES LOCATION OF PAIN:LOW BACK, LEFT HIP, RIGHT HIP INTENSITY OF PAIN (SCALE OF 1 TO 10):8 2-10 IS PATIENT'S AVERAGE WHAT DOES YOUR PAIN FEEL LIKE:ACHING, BURNING, CONTINOUS, STABBING DURATION:CONSTANT PAIN IS INCREASED BY:OTHERS LIFTING PAIN IS DECREASED BY:OTHERS SITTING IN THE RECLINER NURSING NOTE: -. PAIN CENTER INTAKE QUESTIONS: DO YOU HAVE A HISTORY OF MRSA? :NO DO YOU TAKE A BLOOD THINNERS? :NO DO YOU HAVE ANY BLEEDING DISORDERS? :NO ANY NEW NUMBNESS OR WEAKNESS IN YOUR LEGS OR ARMS? :NO ANY PACEMAKER,DEFIBRILLATOR, OR DORSAL COLUMN STIMULATOR? :NO DO YOU HAVE ANY RASHES OR OPEN SORES? :NO ARE YOU ALLERGIC TO IV DYE? :NO ARE YOU DIABETIC? :NO ANY NEW PROBLEMS WITH YOUR MEDICATIONS? :NO HAVE YOU RECEIVED A VACCINE IN THE PAST 30 DAYS? :NO DO YOU PLAN TO RECEIVE A VACCINE IN THE NEXT 21 DAYS? :NO ANY HISTORY OF SEIZURES? :NO ANY HISTORY OF CARDIAC ISSUES OR EVENTS? :NO DO YOU HAVE SLEEP APNEA? :YES DO YOU WEAR A CPAP?YES ANY RECENT HEAD INJURY? :NO HAVE YOU HAD A CHANGE IN YOUR PAIN OR NUMBNESS? :NO STATES PAIN IS JUST GETTING WORSE, AND EXTENDS INTO LEFT THIGH AND BILATERAL HIPS DO YOU HAVE ANY NEW INFECTIONS? :NO WHEN DID YOU LAST EAT? : 02/26/20202029 WHEN DID YOU LAST DRINK? : 02/27/2020899 WHAT DID YOU LAST DRINK? : WATER NAME OF PERSON DRIVING YOU HOME? : - CORRY CURRENT MEDICATIONS TAKING LIPITOR 20 MG TABLET 1 TABLET ORALLY ONCE A DAY, NOTES: 02/26/20202099 TAKING [facility] FLUTICASONE PROPIONATE 50 MCG/ACT SUSPENSION 1 SPRAY IN EACH NOSTRIL NASALLY ONCE A DAY, NOTES: 02/26/2020 09 TAKING LISINOPRIL 5 MG TABLET DIRECTED ORALLY DAILY, NOTES: 02/25/2020899 TAKING ZITHROMAX 250 MG TABLET 1 TABLET ORALLY ONCE A DAY, NOTES: 02/27/2020899TAKES FOR CYSTIC FIBROSIS TAKING ALBUTEROL SULFATE HFA 108 (90 BASE) MCG/ACT AEROSOL SOLUTION 2 PUFFS INHALATION EVERY 4-6 HOURS NEEDED, NOTES: LAST WEEK TAKING LIDOCAINE 5 % PATCH 1 PATCH TO INTACT SKIN REMOVE AFTER 12 HOURS EXTERNALLY ONCE A DAY NEEDED 12 HRS ON AND 12 HRS OFF, NOTES: ONE MONTH AGO TAKING WRIST SPLINT RIGHT WRIST NEEDED TAKING ACCUTANE 20 MG DAILY ORAL DAILY, NOTES: 02/26/20202099 TAKING TRIKAFTA 100-50-75 & 150 MG TABLET THERAPY PACK DIRECTED ORALLY DAILY, NOTES: 02/27/2020899 TAKING MULTIVITAMIN ADULT - TABLET 1 TABLET ORALLY DAILY, NOTES: 02/27/2020899 TAKING ZOLOFT 100 MG TABLET 1 TABLET ORALLY ONCE A DAY, NOTES: 02/26/20202099 TAKING MELOXICAM 15 MG TABLET 1 TABLET PRN ORALLY ONCE A DAY, NOTES: 02/27/2020899 TAKING LYRICA 200 MG CAPSULE 1 CAPSULE ORALLY BID MDD2, NOTES: 02/27/2020899 TAKING TIZANIDINE HCL 2 MG TABLET 1 TABLET NEEDED - TAKES 1/2 TABLET DAILY ORALLY FOR SPASMS THREE TIMES A DAY MDD3, NOTES: 2 DAYS AGO TAKING TRAMADOL HCL 50 MG TABLET 1-2 TAB ORALLY EVERY 6 HRS MDD4, NOTES: 2 DAYS AGO NOT-TAKING MAY HAVE - - TURMERIC 2 CAPSULE ORALLY DAILY NOT-TAKING ALEVE 220 MG TABLET 1 TABLET WITH FOOD OR MILK NEEDED ORALLY EVERY 12 HRS NOT-TAKING KALYDECO 150 MG TABLET 1 TABLET ORALLY TWICE DAILY NOT-TAKING MULTI VITAMIN W/D-3 - TABLET 2 TABLETS ORALLY ONCE A DAY NOT-TAKING FLUOXETINE HCL 10 MG CAPSULE 1 CAPSULE IN THE MORNING ORALLY ONCE A DAY MEDICATION LIST REVIEWED AND RECONCILED WITH THE PATIENT PAST MEDICAL HISTORY CLASSIC MIGRAINE WITH AURA ATYPICAL DEPRESSIVE DISORDER/ANXIETY/ADJUSTMENT DISORDER ATTENTION 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-[phone] TREMOR ERECTILE DYSFUNCTION HISTORY OF FOLLICULITIS STAPH EPIDERMITIS SENS. TO LINEZOLIDE AND CLINDAMYCIN ONLY 2017 PANCREATITIS RIGHT TORN LIGAMENT IN RIGHT OBESITY HYPERTENSION ALLERGIES AMITRIPTYLINE HCL: EXCESSIVE SOMNOLENCE - SIDE EFFECTS GABAPENTIN: GETS SUICIDAL THOUGHTS - SIDE EFFECTS SURGICAL HISTORY DISC REPLACED C5-6 2009 BILATERAL INGUINAL HERNIA REPAIR 1989 CARPAL TUNNEL REPAIR LEFT 04/2018 RIGHT CARPAL TUNNEL REPAIR 01/2019 RIGHT WRIST LIGAMENT REPAIR 05/16/19 FAMILY HISTORY FATHER: ALIVE 63 YRS, NO KNOWN MEDICAL PROBLEMS MOTHER: ALIVE 61 YRS, HYPOGLYCEMIA, DEPRESSION,, DIAGNOSED WITH UNSPECIFIED NONPSYCHOTIC MENTAL DISORDER FOLLOWING ORGANIC BRAIN DAMAGE SIBLINGS: BRO- KIDNEY PROBLEM PATERNAL GRAND FATHER: , UNKNOWN PATERNAL GRAND MOTHER: , STROKE MATERNAL GRAND FATHER: , HEART ATTACK MULTIPLE, CKD, PROSTATE CANCER, DM TYOE 2 MATERNAL GRAND MOTHER: , PANCREATIC CANCER MATERNAL UNCLE: HTN MATERNAL AUNT: DM, 1 BROTHER(S) , 2 SISTER(S) . SOCIAL HISTORY GENERAL: TOBACCO USE ARE YOU A:USES TOBACCO IN OTHER FORMS TRYING TO QUIT ADDITIONAL FINDINGS: TOBACCO USERCHEWS TOBACCO ALSO USING NON TOBACCO CHEW SMOKING CESSATION INFORMATION GIVEN02/24/2020 VAPORNO E-CIGARETTENO LATEX QUESTIONNAIRE LATEX ALLERGY : HAVE YOU EVER DEVELOPED ANY TYPE OF REACTION AFTER HANDLING LATEX PRODUCTS SUCH RUBBER GLOVES, CONDOMS, DIAPHRAGMS, BALLOONS, SOCKS, OR UNDERWEAR?NO LATEX ALLERGY : HAVE YOU EVER DEVELOPED ANY TYPE OF REACTION DURING OR AFTER DENTAL APPOINTMENT, VAGINAL/RECTAL EXAMINATION, SURGICAL PROCEDURE, OR ANY OTHER EXPOSURE?NO LATEX RISK : HAVE YOU EVER HAD ANY DIFFICULTY BREATHING OR HIVES AFTER EATING OR HANDLING ANY FRUITS, OR VEGETABLES; SUCH KIWI, BANANAS, STONE FRUITS, OR CHESTNUTSNO LATEX RISK : DO YOU HAVE A PREVIOUS PERSONAL HISTORY OF MORE THAN NINE SURGERIES, SPINA BIFIDA, OR REPEATED CATHERIZATIONS? NO LATEX RISK : ARE YOU FREQUENTLY EXPOSED TO LATEX PRODUCTS IN YOUR OCCUPATION?NO DATE ASKED : 02/24/2020 BMI CARE GOAL FOLLOW-UP ABOVE NORMAL BMI FOLLOW-UPEXERCISE PROMOTION: STRENGTH TRAINING ALCOHOL SCREENING DID YOU HAVE A DRINK CONTAINING ALCOHOL IN THE PAST YEAR?YES HOW OFTEN DID YOU HAVE SIX OR MORE DRINKS ON ONE OCCASION IN THE PAST YEAR?NEVER (0 POINTS) HOW MANY DRINKS DID YOU HAVE ON A TYPICAL DAY WHEN YOU WERE DRINKING IN THE PAST YEAR?3 OR 4 (1 POINT) HOW OFTEN DID YOU HAVE A DRINK CONTAINING ALCOHOL IN THE PAST YEAR?MONTHLY OR LESS (1 POINT) POINTS2 INTERPRETATIONNEGATIVE RECREATIONAL DRUG USE DRUG USE? NONE CAFFEINE CAFFEINE USE?NO SEXUAL HX HAD SEX IN THE LAST 12 MONTHS (VAGINAL, ORAL, OR ANAL)?: YES, WITH: WOMEN ONLY, HAVE YOU EVER HAD AN STD?: NO, HAD SEX IN THE LAST 12 MONTHS (VAGINAL, ORAL, OR ANAL)?: YES, WITH: WOMEN ONLY, HAVE YOU EVER HAD AN STD?: NO, HAD SEX IN THE LAST 12 MONTHS (VAGINAL, ORAL, OR ANAL)?: YES, WITH: WOMEN ONLY, HAVE YOU EVER HAD AN STD?: NO, HAD SEX IN THE LAST 12 MONTHS (VAGINAL, ORAL, OR ANAL)?: YES, WITH: WOMEN ONLY, HAVE YOU EVER HAD AN STD?: NO, HAD SEX IN THE LAST 12 MONTHS (VAGINAL, ORAL, OR ANAL)?: YES, WITH: WOMEN ONLY, HAVE YOU EVER HAD AN STD?: NO, HAD SEX IN THE LAST 12 MONTHS (VAGINAL, ORAL, OR ANAL)?: YES, WITH: WOMEN ONLY, HAVE YOU EVER HAD AN STD?: NO. HIV / HEP-C SCREENING HIV TEST OFFERED TO PATIENT:YES DATE OFFERED:03/03/2017 TEST ACCEPTED:NO HEP-C TEST OFFERED TO PATIENT:YES DATE OFFERED:03/03/2017 REASON:PATIENT DECLINED TEST ACCEPTED:NO REASON:PATIENT DECLINED WORSHIP [id number] MORAVIAN LANGUAGE LANGUAGES SPOKEN:GUATEMALAN EDUCATION BACHELOR- MATH, BACHELOR- MATH, BACHELOR- MATH, BACHELOR- MATH, BACHELOR- MATH, BACHELOR- MATH. LEARNING BARRIERS / SPECIAL NEEDS CHANGE FROM LAST VISIT?NO BARRIERS TO LEARNING?NO HEARING IMPAIRED?NO VISION IMPAIRED?YES COGNITIVELY IMPAIRED?NO :CORRECTIVE LENSES READINESS TO LEARN?YES LEARNING PREFERENCES?NO LEARNING CAPABILITIES PRESENT?YES EMOTIONAL BARRIERS?NO SPECIAL DEVICES?NO SUPERVISOR SHIPPING NEEDED?NO DOMESTIC VIOLENCE DO YOU FEEL SAFE IN YOUR ENVIRONMENT?YES OCCUPATION: [employer], MOVED BACK FROM [employer] [employer]ED [employer], , [employer], MOVED BACK FROM [employer] [facility] WORKED IN [employer],. DIET: REGULAR , LOW FAT, LOW CHOLESTEROL, CARBOHYDRATE CONTROLLED, REGULAR , LOW FAT, LOW CHOLESTEROL, CARBOHYDRATE CONTROLLED. EXERCISE: NO REGULAR EXERCISE, WALKS, NO REGULAR EXERCISE, WALKS. MARITAL STATUS: , . OTHERS AT HOME: SPOUSE, , SPOUSE,. NEW PATIENT PAIN DIARY TODAY'S VISIT 12/20/2019 PATIENT DESCRIBES PAIN :ACHING, HAVE IT ALL THE TIME, SHARP, STABBING, TENDER, THROBBING, SORE, SHOOTING FROM 0-10, WHAT LEVEL IS YOUR PAIN TODAY?4 PRECIPITATING FACTORS PT STATES ANY LIFTING, ACTIVITY WILL INCREASE PAIN LEVEL ALLEVIATING FACTORS RESTING, LAYING DOWN IS THERE A CHANCE YOU COULD BE ?NO HAVE YOU BEEN SICK IN THE LAST WEEK (COLD, COUGH, FEVER, FLU, ETC)NO DO YOU TAKE ANY BLOOD THINNERS?NO DO YOU HAVE ANY RASHES OR OPEN SORES?NO ANY CHANGE IN BOWEL OR BLADDER CONTROL?NO ARE YOU ALLERGIC TO SHELLFISH OR IV DYE?NO ARE YOU DIABETIC?NO DO YOU HAVE A PACEMAKER OR DEFIBRILLATOR?NO ANY NEW PROBLEMS WITH MEDICINES OR NEW ALLERGIESNO ANY NEW PATTERNS OF PAIN OR NUMBNESS?YES TOP OF LEFT FOOT, NUMBNESS SINCE PROCEDURE ANY CHANGE IN YOUR MEDICAL CONDITION?NO HAVE YOU FALLEN IN THE LAST 6 MONTHS?YES PT STATES THAT HE SLIPPED ON ICE IN PARKING LOT, NO INJURY, NO REPORT TO ED DO YOU USE ANY TYPE OF TOBACCO (SMOKE, SMOKELESS, CHEW, ETC.)YES ARE YOU ABUSED, NEGLECTED, OR IN AN UNSAFE ENVIRONMENT?NO DO YOU HAVE THOUGHTS OF HURTING YOURSELF OR SOMEONE ELSE?NO DO YOU NEED ANY PRESCRIPTIONS?NO DO YOU HAVE ANY OTHER QUESTIONS OR CONCERNS?NO PAIN CLINIC PFS, CLERGY, PUBLIC HEALTH REFERRALS PFS REFERRAL NEEDED?NO CLERGY REFERRAL NEEDED?NO PUBLIC HEALTH REFERRAL NEEDED?NO WAS THE PROVIDER NOTIFIED OF ANY PERTINENT INFO?YES N/A HAS THE PATIENT BEEN EDUCATED REGARDING HIS/HER PLAN OF CARE?YES HAS THE PATIENT BEEN EDUCATED REGARDING PAIN, THE RISK FOR PAIN, THE IMPORTANCE OF EFFECTIVE PAIN MANAGEMENT, AND THE PAIN ASSESSMENT PROCESS?YES HOUSING: OWNS HOME, , OWNS HOME,. ADVANCE DIRECTIVE ADVANCE DIRECTIVE DISCUSSED WITH PATIENT:YES PT HAS HCP-- [facility] [phone] FORM IS ON FILE HOSPITALIZATION/MAJOR DIAGNOSTIC PROCEDURE [place], [place] 2008 HERNIA REPAIR 1988 VITAL SIGNS WT 323.8 LBS, HT 70.5 IN, BMI 45.80 INDEX, BP 131/59 MM HG, HR 86 /MIN, RR 20 /MIN, TEMP 96.6 F, OXYGEN SAT % 97%, SAFE IN ENV? (Y/N) YES, NA INITIALS TL 1110, REVIEWED BY: NLJ. EXAMINATION GENERAL EXAMINATION: THE PATIENT IS ALERT, ORIENTED TIMES THREE AND COOPERATIVE. HEART SHOWS REGULAR RHYTHM, NO MURMURS AND NO GALLOPS. LUNGS ARE CLEAR TO AUSCULTATION. ASSESSMENTS SPONDYLOSIS WITHOUT MYELOPATHY OR RADICULOPATHY, LUMBAR REGION - M47.816 (PRIMARY) LUMBOSACRAL SPONDYLOSIS WITH RADICULOPATHY - M47.27 TREATMENT LUMBOSACRAL SPONDYLOSIS WITH RADICULOPATHY [facility] FACET BLOCK (PAIN)[id number] PROCEDURES PRE PROCEDURE DIAGNOSES: 1. LUMBAR SPONDYLOSIS. 2. LUMBOSACRAL SPONDYLOSIS. POST PROCEDURE DIAGNOSES: 1. LUMBAR SPONDYLOSIS. 2. LUMBOSACRAL SPONDYLOSIS. PROCEDURE: LEFT L4-L5 AND LEFT L5-S1 LUMBAR FACET RADIOFREQUENCY. SURGEON: DR. PRAKASH SMITH. AIR ANALYST: NONE. ANESTHESIA: LOCAL. PRE PROCEDURE REPORT: THE PATIENT HAS HISTORY OF CHRONIC LOW BACK PAIN. I EVALUATED THE PATIENT AND REVIEWED THE CHART. I WENT OVER THE RISKS, ALTERNATIVES, AND BENEFITS ASSOCIATED WITH THIS PROCEDURE. I DISCUSSED THAT THE USE OF STEROIDS MAY CONTRIBUTE TO IMMUNOSUPPRESSION OF THE PATIENT'S BODY AGAINST INFECTIONS SUCH THE RAO VIRUS, COVID-19. THE PATIENT IS AWARE OF THE POTENTIAL COMPLICATIONS ASSOCIATED WITH AN INFECTION OF THIS VIRUS INCLUDING . THE PATIENT WOULD LIKE TO PROCEED AND GAVE CONSENT TO PERFORM THE PROCEDURE. THE PATIENT DENIES UNEXPLAINABLE WEIGHT LOSS, FEVER, CHILLS OR NEW CHANGES IN URINARY OR BOWEL CONTROL. THE PATIENT IS COVID-19 NEGATIVE.DESCRIPTION OF PROCEDURE: THE PATIENT WAS BROUGHT TO THE PROCEDURE ROOM AND PLACED IN THE PRONE POSITION. THE LUMBOSACRAL AREA WAS CLEANED WITH CHLORAPREP SOLUTION AND DRAPED ASEPTICALLY. THE PROCEDURE WAS DONE UNDER STERILE CONDITIONS. I CHECKED LATERALITY AND THE LEVEL WHERE THE PROCEDURE WAS GOING TO BE PERFORMED WITH THE PATIENT AND THE SUPPORTING STAFF AT THE MOMENT OF THE TIME OUT IN THE PROCEDURE ROOM. UNDER FLUOROSCOPIC GUIDANCE, TARGETS WERE SELECTED AT THE INTERSECTION OF THE LEFT TRANSVERSE PROCESS OF L4, L5 AND ALA OF S1 WITH ITS RESPECTIVE SUPERIOR ARTICULAR PROCESS. LIDOCAINE WAS USED TO NUMB THE SKIN AND THE SUBCUTANEOUS TISSUE BELOW IT. RADIOFREQUENCY CANNULAS, 17-GAUGE, 150 MM LONG WITH 4 MM ACTIVE TIP, WERE ADVANCED UNDER FLUOROSCOPIC GUIDANCE AND FOLLOWING PATIENT FEEDBACK UNTIL THE TARGET AREA WAS REACHED. POSITION OF THE CANNULA WAS VERIFIED WITH AP AND LATERAL VIEWS. AFTER PROPER POSITION OF THE CANNULA WAS ACHIEVED, WE WORKED WITH THE LEFT SELECTED MEDIAN BRANCHES OF L3, L4 AND THE DORSAL RAMI OF L5. WE MEASURED THE CORRESPONDING IMPEDANCES AND MOTOR RESPONSES INDICATED IN THE RADIOFREQUENCY WORKSHEET. POSITION OF THE CANNULA WAS VERIFIED AGAIN WITH AP AND LATERAL VIEWS. LIDOCAINE 1%, 2 ML, WAS INJECTED AT EACH LEVEL. RADIOFREQUENCY WAS DONE AT EACH LEVEL USING THE [employer] SYSTEM-- COOLED RF-- WITH A SETTING AT THE MACHINE OF 60 DEGREES WITH A TARGET TISSUE TEMPERATURE OF 80 TO 90 DEGREES FOR A MINIMUM OF 150 SECONDS. AFTER RADIOFREQUENCY WAS DONE, THE PATIENT RECEIVED BUPIVACAINE 0.125%,1 ML, WITH DEXAMETHASONE 2 MG AT EACH SITE. THERE WAS NO EVIDENCE OF BLOOD, PARESTHESIA OR CEREBROSPINAL FLUID DURING THE PROCEDURE. THE PATIENT WAS SENT TO THE RECOVERY ROOM. THE PATIENT WAS MOVING THE EXTREMITIES AND DOING WELL. THERE WERE NO COMPLICATIONS DURING THE PROCEDURE. FLUOROSCOPY TIME WAS 1 MINUTE 8 SECONDS. POST PROCEDURE NOTE: THE PATIENT WILL BE SEEN IN A FOLLOW UP IN THE NEXT FEW WEEKS. INSTRUCTIONS WERE GIVEN, QUESTIONS WERE ANSWERED, AND THE PATIENT EXPRESSED UNDERSTANDING AND AGREES WITH THE PLAN. THE PATIENT IS AWARE TO STAY HOME FOR THE NEXT WEEK, IF POSSIBLE, DUE TO COVID-19. I, MARGARITA TERRY, DOCUMENTED THE ABOVE INFORMATION ACTING A SCRIBE FOR DR. SMITH. I HAVE REVIEWED THE ABOVE DOCUMENT, WRITTEN BY IRENE DONOVAN, AND I VERIFY THAT IT IS ACCURATE. PROCEDURE CODES 82583 DESTROY LUMB/SAC FACET JNT, [place]: [place] [id number] DESTROY L/S FACET JNT ADDL, MODIFIERS: LT DISPOSITION & COMMUNICATION FOLLOW UP F/UP WITH BILINGUAL LOAN PROCESSOR (REASON: POST COOL RF LT L4-L5, L5-S1) ELECTRONICALLY SIGNED BY PRAKASH SMITH MD, MD ON 02/28/2020 AT 10:06 AM EDT DISCLAIMER : THIS IS A VISIT SUMMARY EXTRACTED FROM THE [employer] CHART. IT IS NOT A COPY OF THE [employer] PROGRESS NOTE. PINA
== END ==
LOC: M PAIN 11:15
PROVIDERS: ATTEND Anesthesiology
DX: M47.816 Spondylosis without myelopathy or radiculopathy, lumbar region (principal); M47.27 Other spondylosis with radiculopathy, lumbosacral region; F17.210 Nicotine dependence, cigarettes, uncomplicated; Z79.891 Long term (current) use of opiate analgesic; Z79.899 Other long term (current) drug therapy; Z88.8 Allergy status to other drugs, medicaments and biological substances
CPT/HCPCS: 64635; 64636; J1100

== ENCOUNTER → 2020-03-12 | Outpatient (CLI) | payer OTHER ==
[~2020-03-12] MED LIST changes: -BUPIVACAINE HCL 0.25% 30ML VIAL As Ordered ONE; -LIDOCAINE 1% SDV 30ML VIAL As Ordered ONE; -dexameTHASONE 10MG/1ML VIAL PRES.FREE (J1100 PER 1MG) As Ordered ONE
--- NOTE | 2020-03-14 03:42 | ECWPNPC ---
PATIENT NAME: KRYSTLE LOONEY : 1985 GENDER: MALE VISIT DATE: 03/12/2020 DISCHARGE DATE: 03/12/20 1101 VISIT LOCKED DATE TIME: PHYSICIAN: MARINA ALLISON RESOURCE: MARINA ALLISON REASON FOR APPOINTMENT 1. POST RF; [email or web address]@[facility]- PAT COMPLETED HISTORY OF PRESENT ILLNESS GENERAL: PATIENT IS AGREEABLE TO TELEPHONE VISIT TODAY. THIS IS A POST PROCEDURE FOLLOW-UP. HAD LEFT L4-5 AND L5-S1 COOL RADIOFREQUENCY ON 02/27/2020. REPORTING NO PAIN ON THE LEFT SIDE SINCE PROCEDURE. HE WOULD LIKE TO MOVE FORWARD WITH RIGHT COOL RADIOFREQUENCY PLANNED. HAS RESPONDED WELL TO DIAGNOSTIC TESTING ON THAT SIDE. REVIEWED MRI AND DISCUSSED TREATMENT PLAN. RIGHT SIDE LOW BACK PAIN RANGES 4-10 OVER 10 VAS. -. FALL RISK SCREENING: SCREENING :NO FALLS REPORTED IN THE LAST YEAR PAIN SCREENING: PATIENT HAS A COMPLAINT OF ACUTE OR CHRONIC PAIN :YES PATIENT STATES PAIN IN LEFT SIDE POST COOL RF IS 0/10 AND HE CONTINUES TO FEEL RELIEF. STATES HE HAS HAD THE PAIN RETURN IN HIS RIGHT LOW BACK AND WOULD LIKE TO TRY A COOL RF ON RIGHT SIDE. STATES PAIN ON RIGHT SIDE RANGES FROM 4-10 LOCATION OF PAIN:LOW BACK RIGHT LOW BACK INTENSITY OF PAIN (SCALE OF 1 TO 10):5 WHAT DOES YOUR PAIN FEEL LIKE:ACHING, CONTINOUS DURATION:CONSTANT PAIN IS INCREASED BY:ACTIVITIES PAIN IS DECREASED BY: " NOT MUCH HELPS THE RIGHT SIDE" NURSING NOTE: -. PAIN CENTER INTAKE QUESTIONS: DO YOU HAVE A HISTORY OF MRSA? :NO DO YOU TAKE A BLOOD THINNERS? :NO DO YOU HAVE ANY BLEEDING DISORDERS? :NO ANY NEW NUMBNESS OR WEAKNESS IN YOUR LEGS OR ARMS? :NO ANY PACEMAKER,DEFIBRILLATOR, OR DORSAL COLUMN STIMULATOR? :NO DO YOU HAVE ANY RASHES OR OPEN SORES? :NO ARE YOU ALLERGIC TO IV DYE? :NO ARE YOU DIABETIC? :NO ANY NEW PROBLEMS WITH YOUR MEDICATIONS? :NO HAVE YOU RECEIVED A VACCINE IN THE PAST 30 DAYS? :NO DO YOU PLAN TO RECEIVE A VACCINE IN THE NEXT 21 DAYS? :NO DO YOU NEED ANY PRESCRIPTION? :NO DO YOU TAKE ANY IMMUNOSUPPRESSIVE MEDICATIONS? :NO ANY HISTORY OF SEIZURES? :NO ANY HISTORY OF CARDIAC ISSUES OR EVENTS? :NO DO YOU HAVE SLEEP APNEA? YES- CPAP. ANY RECENT HEAD INJURY? :NO IS THERE A CHANCE YOU COULD BE ? :NO ARE YOU BREAST FEEDING? :NO DO YOU HAVE ANY OTHER QUESTIONS OR CONCERNS? : PATIENT STATES THAT HE CONTINUES TO FEEL RELIEF FROM PAIN FROM LEFT SIDED COOL RF, STATES HE HAS PAIN ON RIGHT LOW BACK AREA AND WOULD LIKE TO HAVE COOL RF DONE TO RIGHT SIDE CURRENT MEDICATIONS TAKING LIPITOR 20 MG TABLET 1 TABLET ORALLY ONCE A DAY TAKING [facility] FLUTICASONE PROPIONATE 50 MCG/ACT SUSPENSION 1 SPRAY IN EACH NOSTRIL NASALLY ONCE A DAY TAKING LISINOPRIL 5 MG TABLET DIRECTED ORALLY DAILY TAKING ZITHROMAX 250 MG TABLET 1 TABLET ORALLY ONCE A DAY TAKING ALBUTEROL SULFATE HFA 108 (90 BASE) MCG/ACT AEROSOL SOLUTION 2 PUFFS INHALATION EVERY 4-6 HOURS NEEDED TAKING LIDOCAINE 5 % PATCH 1 PATCH TO INTACT SKIN REMOVE AFTER 12 HOURS EXTERNALLY ONCE A DAY NEEDED 12 HRS ON AND 12 HRS OFF TAKING WRIST SPLINT RIGHT WRIST NEEDED TAKING ACCUTANE 20 MG DAILY ORAL DAILY TAKING TRIKAFTA 100-50-75 & 150 MG TABLET THERAPY PACK DIRECTED ORALLY DAILY TAKING MULTIVITAMIN ADULT - TABLET 1 TABLET ORALLY DAILY TAKING ZOLOFT 100 MG TABLET 1 TABLET ORALLY ONCE A DAY TAKING MELOXICAM 15 MG TABLET 1 TABLET PRN ORALLY ONCE A DAY TAKING LYRICA 200 MG CAPSULE 1 CAPSULE ORALLY BID MDD2 TAKING TIZANIDINE HCL 2 MG TABLET 1 TABLET NEEDED - TAKES 1/2 TABLET DAILY ORALLY FOR SPASMS THREE TIMES A DAY MDD3 TAKING TRAMADOL HCL 50 MG TABLET 1-2 TAB ORALLY EVERY 6 HRS MDD4 TAKING VOLTAREN 1 % GEL DIRECTED TRANSDERMAL NOT-TAKING MAY HAVE - - TURMERIC 2 CAPSULE ORALLY DAILY NOT-TAKING ALEVE 220 MG TABLET 1 TABLET WITH FOOD OR MILK NEEDED ORALLY EVERY 12 HRS NOT-TAKING KALYDECO 150 MG TABLET 1 TABLET ORALLY TWICE DAILY NOT-TAKING MULTI VITAMIN W/D-3 - TABLET 2 TABLETS ORALLY ONCE A DAY NOT-TAKING FLUOXETINE HCL 10 MG CAPSULE 1 CAPSULE IN THE MORNING ORALLY ONCE A DAY MEDICATION LIST REVIEWED AND RECONCILED WITH THE PATIENT PAST MEDICAL HISTORY CLASSIC MIGRAINE WITH AURA ATYPICAL DEPRESSIVE DISORDER/ANXIETY/ADJUSTMENT DISORDER ATTENTION 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[id number] TREMOR ERECTILE DYSFUNCTION HISTORY OF FOLLICULITIS STAPH EPIDERMITIS SENS. TO LINEZOLIDE AND CLINDAMYCIN ONLY 2017 PANCREATITIS RIGHT TORN LIGAMENT IN RIGHT OBESITY HYPERTENSION ALLERGIES AMITRIPTYLINE HCL: EXCESSIVE SOMNOLENCE - SIDE EFFECTS GABAPENTIN: GETS SUICIDAL THOUGHTS - SIDE EFFECTS SURGICAL HISTORY DISC REPLACED C5-6 2008 BILATERAL INGUINAL HERNIA REPAIR 1989 CARPAL TUNNEL REPAIR LEFT 04/2018 RIGHT CARPAL TUNNEL REPAIR 01/2019 RIGHT WRIST LIGAMENT REPAIR 05/16/19 FAMILY HISTORY FATHER: ALIVE 63 YRS, NO KNOWN MEDICAL PROBLEMS MOTHER: ALIVE 61 YRS, HYPOGLYCEMIA, DEPRESSION,, DIAGNOSED WITH UNSPECIFIED NONPSYCHOTIC MENTAL DISORDER FOLLOWING ORGANIC BRAIN DAMAGE SIBLINGS: BRO- KIDNEY PROBLEM PATERNAL GRAND FATHER: , UNKNOWN PATERNAL GRAND MOTHER: , STROKE MATERNAL GRAND FATHER: , HEART ATTACK MULTIPLE, CKD, PROSTATE CANCER, DM TYOE 2 MATERNAL GRAND MOTHER: , PANCREATIC CANCER MATERNAL UNCLE: HTN MATERNAL AUNT: DM, 1 BROTHER(S) , 2 SISTER(S) . SOCIAL HISTORY GENERAL: TOBACCO USE ARE YOU A:USES TOBACCO IN OTHER FORMS ALMOST QUIT, CONTUNES TO TRY ADDITIONAL FINDINGS: TOBACCO USERCHEWS TOBACCO ALSO USING NON TOBACCO CHEW SMOKING CESSATION INFORMATION GIVEN02/24/2020 VAPORNO E-CIGARETTENO LATEX QUESTIONNAIRE LATEX ALLERGY : HAVE YOU EVER DEVELOPED ANY TYPE OF REACTION AFTER HANDLING LATEX PRODUCTS SUCH RUBBER GLOVES, CONDOMS, DIAPHRAGMS, BALLOONS, SOCKS, OR UNDERWEAR?NO LATEX ALLERGY : HAVE YOU EVER DEVELOPED ANY TYPE OF REACTION DURING OR AFTER DENTAL APPOINTMENT, VAGINAL/RECTAL EXAMINATION, SURGICAL PROCEDURE, OR ANY OTHER EXPOSURE?NO LATEX RISK : HAVE YOU EVER HAD ANY DIFFICULTY BREATHING OR HIVES AFTER EATING OR HANDLING ANY FRUITS, OR VEGETABLES; SUCH KIWI, BANANAS, STONE FRUITS, OR CHESTNUTSNO LATEX RISK : DO YOU HAVE A PREVIOUS PERSONAL HISTORY OF MORE THAN NINE SURGERIES, SPINA BIFIDA, OR REPEATED CATHERIZATIONS? NO LATEX RISK : ARE YOU FREQUENTLY EXPOSED TO LATEX PRODUCTS IN YOUR OCCUPATION?NO DATE ASKED : 03/09/2020 BMI CARE GOAL FOLLOW-UP ABOVE NORMAL BMI FOLLOW-UPEXERCISE PROMOTION: STRENGTH TRAINING ALCOHOL SCREENING DID YOU HAVE A DRINK CONTAINING ALCOHOL IN THE PAST YEAR?YES HOW OFTEN DID YOU HAVE SIX OR MORE DRINKS ON ONE OCCASION IN THE PAST YEAR?NEVER (0 POINTS) HOW MANY DRINKS DID YOU HAVE ON A TYPICAL DAY WHEN YOU WERE DRINKING IN THE PAST YEAR?3 OR 4 (1 POINT) HOW OFTEN DID YOU HAVE A DRINK CONTAINING ALCOHOL IN THE PAST YEAR?MONTHLY OR LESS (1 POINT) POINTS2 INTERPRETATIONNEGATIVE RECREATIONAL DRUG USE DRUG USE? NONE CAFFEINE CAFFEINE USE?NO SEXUAL HX HAD SEX IN THE LAST 12 MONTHS (VAGINAL, ORAL, OR ANAL)?: YES, WITH: WOMEN ONLY, HAVE YOU EVER HAD AN STD?: NO, HAD SEX IN THE LAST 12 MONTHS (VAGINAL, ORAL, OR ANAL)?: YES, WITH: WOMEN ONLY, HAVE YOU EVER HAD AN STD?: NO, HAD SEX IN THE LAST 12 MONTHS (VAGINAL, ORAL, OR ANAL)?: YES, WITH: WOMEN ONLY, HAVE YOU EVER HAD AN STD?: NO, HAD SEX IN THE LAST 12 MONTHS (VAGINAL, ORAL, OR ANAL)?: YES, WITH: WOMEN ONLY, HAVE YOU EVER HAD AN STD?: NO, HAD SEX IN THE LAST 12 MONTHS (VAGINAL, ORAL, OR ANAL)?: YES, WITH: WOMEN ONLY, HAVE YOU EVER HAD AN STD?: NO, HAD SEX IN THE LAST 12 MONTHS (VAGINAL, ORAL, OR ANAL)?: YES, WITH: WOMEN ONLY, HAVE YOU EVER HAD AN STD?: NO. HIV / HEP-C SCREENING HIV TEST OFFERED TO PATIENT:YES DATE OFFERED:03/03/2017 TEST ACCEPTED:NO HEP-C TEST OFFERED TO PATIENT:YES DATE OFFERED:03/03/2017 REASON:PATIENT DECLINED TEST ACCEPTED:NO REASON:PATIENT DECLINED JAINISM [id number] SABIANIST LANGUAGE LANGUAGES SPOKEN:GEORGIAN EDUCATION BACHELOR- MATH, BACHELOR- MATH, BACHELOR- MATH, BACHELOR- MATH, BACHELOR- MATH, BACHELOR- MATH. LEARNING BARRIERS / SPECIAL NEEDS CHANGE FROM LAST VISIT?NO BARRIERS TO LEARNING?NO HEARING IMPAIRED?NO VISION IMPAIRED?YES COGNITIVELY IMPAIRED?NO :CORRECTIVE LENSES READINESS TO LEARN?YES LEARNING PREFERENCES?NO LEARNING CAPABILITIES PRESENT?YES EMOTIONAL BARRIERS?NO SPECIAL DEVICES?NO PSYCHIATRIC SECURITY NURSE NEEDED?NO DOMESTIC VIOLENCE DO YOU FEEL SAFE IN YOUR ENVIRONMENT?YES OCCUPATION: [employer], MOVED BACK FROM [employer], , [employer], MOVED BACK FROM [employer] WORKED IN [employer],. DIET: REGULAR , LOW FAT, LOW CHOLESTEROL, CARBOHYDRATE CONTROLLED, REGULAR , LOW FAT, LOW CHOLESTEROL, CARBOHYDRATE CONTROLLED. EXERCISE: NO REGULAR EXERCISE, WALKS, NO REGULAR EXERCISE, WALKS. MARITAL STATUS: , . OTHERS AT HOME: SPOUSE, , SPOUSE,. PAIN CLINIC PFS, CLERGY, PUBLIC HEALTH REFERRALS PFS REFERRAL NEEDED?NO CLERGY REFERRAL NEEDED?NO PUBLIC HEALTH REFERRAL NEEDED?NO WAS THE PROVIDER NOTIFIED OF ANY PERTINENT INFO?YES N/A HAS THE PATIENT BEEN EDUCATED REGARDING HIS/HER PLAN OF CARE?YES HAS THE PATIENT BEEN EDUCATED REGARDING PAIN, THE RISK FOR PAIN, THE IMPORTANCE OF EFFECTIVE PAIN MANAGEMENT, AND THE PAIN ASSESSMENT PROCESS?YES HOUSING: OWNS HOME, , OWNS HOME,. ADVANCE DIRECTIVE ADVANCE DIRECTIVE DISCUSSED WITH PATIENT:YES PT HAS HCP-- TANIA [phone] FORM IS ON FILE HOSPITALIZATION/MAJOR DIAGNOSTIC PROCEDURE [place] 2008 HERNIA REPAIR 1988 REVIEW OF SYSTEMS CONSTITUTIONAL: ANY RECENT FEVER OR ILLNESS NO . CHILLS NO . GASTROENTEROLOGY: BOWEL INCONTINENCE NO . ANY NEW CHANGE IN BOWEL CONTROL? NO . ABDOMINAL PAIN NO . CONSTIPATION NO . GENITOURINARY: ANY NEW CHANGE IN BLADDER CONTROL? NO . IS THERE A CHANCE YOU COULD BE ? NO . URINARY INCONTINENCE NO . CARDIOLOGY: CHEST PRESSURE NO . CHEST PAIN NO . RESPIRATORY: COUGH NO . SHORTNESS OF BREATH NO . ASSESSMENTS SPONDYLOSIS WITHOUT MYELOPATHY OR RADICULOPATHY, LUMBAR REGION - M47.816 (PRIMARY) TREATMENT SPONDYLOSIS WITHOUT MYELOPATHY OR RADICULOPATHY, LUMBAR REGION NOTES: SCHEDULE COOL RADIOFREQUENCY L4-5, L5-S1 RIGHT SIDE. PATIENT VOICES UNDERSTANDING OF TREATMENT PLAN.. QUESTIONS WERE ANSWERED. TOTAL TIME SPENT DURING TELEPHONE VISIT WAS APPROXIMATELY 12 MINUTES. OTHERS NOTES: 03/09/2020 1506- PATIENT CONSENTS TO VIRTUAL VISIT, PRE VISIT PHONE CALL COMPLETED WITH PATIENT, VITAL SIGNS NOT OBTAINED DUE TO VIRTUAL VISIT [facility], 03/13/2020 1054 RADIOFREQUENCY ABLATION MATERIAL WAS PRINTED AND REVIEWED WITH PATIENT. PRE PROCEDURE INSTRUCTIONS REVIEWED WITH PATIENT. INFOMRATION MAILED TO PATIENT AT ADDRESS ON FILE. [facility]. PREVENTIVE MEDICINE PAIN CLINIC TEACHING: PROCEDURE TEACHING JANICE RAPP 03/12/2020 11:04:21 AM > THIS FILENET ADMIN SPOKE TO PATIENT VIA PHONE TO REVIEW COOL RADIOFREQUENCY PROCEDURE AND PRE PROCEDURE INSTRUCTIONS WITH PATIENT. PATIENT VERBLAIZES UNDERSTANDING, PAPER COPIES MAILED TO PATIENT AT ADDRESS ON FILE. . DISPOSITION & COMMUNICATION FOLLOW UP POST (REASON: SCHEDULE COOL RADIOFREQUENCY L4-5, L5-S1 RIGHT SIDE.) ELECTRONICALLY SIGNED BY MARGRET WEBER ON 03/13/2020 AT 08:18 AM EDT DISCLAIMER : THIS IS A VISIT SUMMARY EXTRACTED FROM THE [employer] CHART. IT IS NOT A COPY OF THE [employer] PROGRESS NOTE. PINA
== END ==
LOC: M PAIN 10:00
PROVIDERS: ATTEND Nurse Practitioner Family
DX: M47.816 Spondylosis without myelopathy or radiculopathy, lumbar region (principal)

== ENCOUNTER → 2020-03-23 | Outpatient (CLI) | payer OTHER | LOC: M LABSMTC 09:48 | PROVIDERS: ATTEND Anesthesiology | DX: Z11.59 Encounter for screening for other viral diseases (principal); Z03.89 Encounter for observation for other suspected diseases and conditions ruled out | CPT/HCPCS: C9803; U0003 ==

== ENCOUNTER → 2020-03-26 | Outpatient (CLI) | payer OTHER ==
[~2020-03-26] MED LIST changes: +BUPIVACAINE HCL 0.25% 30ML VIAL As Ordered ONE; +ISOVUE-M 300 61% 15ML VIAL As Ordered ONE; +LIDOCAINE 1% SDV 30ML VIAL As Ordered ONE
--- NOTE | 2020-03-26 16:43 | REP ---
Partial lumbar spine series: Three views . History: Injection procedure for pain. 18 seconds of fluoroscopy time is reported. Findings: A sequence of three fluoroscopically obtained last image hold procedural spot radiographs of the lumbar spine document needle position and contrast injection associated with injection procedure. Electronically Signed by Dallas Rivera MD 03/26/2020 04:35 P
--- NOTE | 2020-03-27 01:06 | ECWPNPC ---
PATIENT NAME: KRYSTLE LOONEY : 1985 GENDER: MALE VISIT DATE: 03/26/2020 DISCHARGE DATE: 03/26/20 1521 VISIT LOCKED DATE TIME: PHYSICIAN: PRAKASH SMITH MD RESOURCE: PRAKASH SMITH MD REASON FOR APPOINTMENT 1. DIAGNOSTIC #2 RT FB L4/L5, L5/S1 HISTORY OF PRESENT ILLNESS GENERAL: -. FALL RISK SCREENING: SCREENING :NO FALLS REPORTED IN THE LAST YEAR PAIN SCREENING: PATIENT HAS A COMPLAINT OF ACUTE OR CHRONIC PAIN :NO NURSING NOTE: -. PAIN CENTER INTAKE QUESTIONS: DO YOU HAVE A HISTORY OF MRSA? :NO DO YOU TAKE A BLOOD THINNERS? :NO DO YOU HAVE ANY BLEEDING DISORDERS? :NO ANY NEW NUMBNESS OR WEAKNESS IN YOUR LEGS OR ARMS? :NO ANY PACEMAKER,DEFIBRILLATOR, OR DORSAL COLUMN STIMULATOR? :NO DO YOU HAVE ANY RASHES OR OPEN SORES? :NO ARE YOU ALLERGIC TO IV DYE? :NO ARE YOU DIABETIC? :NO ANY NEW PROBLEMS WITH YOUR MEDICATIONS? :NO HAVE YOU RECEIVED A VACCINE IN THE PAST 30 DAYS? :NO DO YOU PLAN TO RECEIVE A VACCINE IN THE NEXT 21 DAYS? :NO DO YOU TAKE ANY IMMUNOSUPPRESSIVE MEDICATIONS? :NO ANY HISTORY OF SEIZURES? :NO ANY HISTORY OF CARDIAC ISSUES OR EVENTS? :NO DO YOU HAVE SLEEP APNEA? :NO ANY RECENT HEAD INJURY? :NO DO YOU HAVE ANY NEW INFECTIONS? :NO IS THERE A CHANCE YOU COULD BE ? :NO ARE YOU BREAST FEEDING? :NO WHEN DID YOU LAST EAT? : - WHEN DID YOU LAST DRINK? : -LATE LAST NIGHT WHAT DID YOU LAST DRINK? : -THIS MORNING WITH MEDICATIONS NAME OF PERSON DRIVING YOU HOME? : -DU BOWDEN DO YOU HAVE ANY OTHER QUESTIONS OR CONCERNS? : -PT UNDERSTANDS HE IS TO HAVE PAIN BETWEEN AN 8 AND 10 PRIOR TO GOING TO PROCEDURE ROOM CURRENT MEDICATIONS TAKING LIPITOR 20 MG TABLET 1 TABLET ORALLY ONCE A DAY, NOTES: NOT TAKEN IN A WEEK TAKING [facility] FLUTICASONE PROPIONATE 50 MCG/ACT SUSPENSION 1 SPRAY IN EACH NOSTRIL NASALLY ONCE A DAY, NOTES: 629-20 0600 TAKING LISINOPRIL 5 MG TABLET DIRECTED ORALLY DAILY, NOTES: NOT LATEL TAKING ZITHROMAX 250 MG TABLET 1 TABLET ORALLY ONCE A DAY, NOTES: YESTERDAY TAKING ALBUTEROL SULFATE HFA 108 (90 BASE) MCG/ACT AEROSOL SOLUTION 2 PUFFS INHALATION EVERY 4-6 HOURS NEEDED, NOTES: ONLY NEEDED TAKING LIDOCAINE 5 % PATCH 1 PATCH TO INTACT SKIN REMOVE AFTER 12 HOURS EXTERNALLY ONCE A DAY NEEDED 12 HRS ON AND 12 HRS OFF, NOTES: NOT ON ONLY NEEDED TAKING WRIST SPLINT RIGHT WRIST NEEDED TAKING ACCUTANE 20 MG DAILY ORAL DAILY, NOTES: 03-25-202099 TAKING TRIKAFTA 100-50-75 & 150 MG TABLET THERAPY PACK DIRECTED ORALLY DAILY, NOTES: 03-25-20799 TAKING MULTIVITAMIN ADULT - TABLET 1 TABLET ORALLY DAILY, NOTES: 03-25-20799 TAKING ZOLOFT 100 MG TABLET 1 TABLET ORALLY ONCE A DAY, NOTES: 03-25-20799 TAKING MELOXICAM 15 MG TABLET 1 TABLET PRN ORALLY ONCE A DAY, NOTES: 03-25-20799 TAKING LYRICA 200 MG CAPSULE 1 CAPSULE ORALLY BID MDD2, NOTES: 03-26-20 TAKING TIZANIDINE HCL 2 MG TABLET 1 TABLET NEEDED - TAKES 1/2 TABLET DAILY ORALLY FOR SPASMS THREE TIMES A DAY MDD3, NOTES: 03-25-202099 TAKING TRAMADOL HCL 50 MG TABLET 1-2 TAB ORALLY EVERY 6 HRS MDD4, NOTES: LAST NIGHT 2099 TAKING VOLTAREN 1 % GEL DIRECTED TRANSDERMAL NOT-TAKING MAY HAVE - - TURMERIC 2 CAPSULE ORALLY DAILY NOT-TAKING ALEVE 220 MG TABLET 1 TABLET WITH FOOD OR MILK NEEDED ORALLY EVERY 12 HRS NOT-TAKING KALYDECO 150 MG TABLET 1 TABLET ORALLY TWICE DAILY NOT-TAKING MULTI VITAMIN W/D-3 - TABLET 2 TABLETS ORALLY ONCE A DAY NOT-TAKING FLUOXETINE HCL 10 MG CAPSULE 1 CAPSULE IN THE MORNING ORALLY ONCE A DAY MEDICATION LIST REVIEWED AND RECONCILED WITH THE PATIENT PAST MEDICAL HISTORY CLASSIC MIGRAINE WITH AURA ATYPICAL DEPRESSIVE DISORDER/ANXIETY/ADJUSTMENT DISORDER ATTENTION 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 TO LINEZOLIDE AND CLINDAMYCIN ONLY 2017 PANCREATITIS RIGHT TORN LIGAMENT IN RIGHT OBESITY HYPERTENSION ALLERGIES AMITRIPTYLINE HCL: EXCESSIVE SOMNOLENCE - SIDE EFFECTS GABAPENTIN: GETS SUICIDAL THOUGHTS - SIDE EFFECTS SURGICAL HISTORY DISC REPLACED C5-6 2008 BILATERAL INGUINAL HERNIA REPAIR 1988 CARPAL TUNNEL REPAIR LEFT 04/2018 RIGHT CARPAL TUNNEL REPAIR 01/2019 RIGHT WRIST LIGAMENT REPAIR 05/16/19 FAMILY HISTORY FATHER: ALIVE 63 YRS, NO KNOWN MEDICAL PROBLEMS MOTHER: ALIVE 61 YRS, HYPOGLYCEMIA, DEPRESSION,, DIAGNOSED WITH UNSPECIFIED NONPSYCHOTIC MENTAL DISORDER FOLLOWING ORGANIC BRAIN DAMAGE SIBLINGS: BRO- KIDNEY PROBLEM PATERNAL GRAND FATHER: , UNKNOWN PATERNAL GRAND MOTHER: , STROKE MATERNAL GRAND FATHER: , HEART ATTACK MULTIPLE, CKD, PROSTATE CANCER, DM TYOE 2 MATERNAL GRAND MOTHER: , PANCREATIC CANCER MATERNAL UNCLE: HTN MATERNAL AUNT: DM, 1 BROTHER(S) , 2 SISTER(S) . SOCIAL HISTORY GENERAL: TOBACCO USE ARE YOU A:USES TOBACCO IN OTHER FORMS ALMOST QUIT, CONTUNES TO TRY ADDITIONAL FINDINGS: TOBACCO USERCHEWS TOBACCO ALSO USING NON TOBACCO CHEW VAPORNO E-CIGARETTENO SMOKING CESSATION INFORMATION GIVEN02/24/2020 LATEX QUESTIONNAIRE LATEX ALLERGY : HAVE YOU EVER DEVELOPED ANY TYPE OF REACTION AFTER HANDLING LATEX PRODUCTS SUCH RUBBER GLOVES, CONDOMS, DIAPHRAGMS, BALLOONS, SOCKS, OR UNDERWEAR?NO LATEX ALLERGY : HAVE YOU EVER DEVELOPED ANY TYPE OF REACTION DURING OR AFTER DENTAL APPOINTMENT, VAGINAL/RECTAL EXAMINATION, SURGICAL PROCEDURE, OR ANY OTHER EXPOSURE?NO DATE ASKED : 03/09/2020 LATEX RISK : HAVE YOU EVER HAD ANY DIFFICULTY BREATHING OR HIVES AFTER EATING OR HANDLING ANY FRUITS, OR VEGETABLES; SUCH KIWI, BANANAS, STONE FRUITS, OR CHESTNUTSNO LATEX RISK : DO YOU HAVE A PREVIOUS PERSONAL HISTORY OF MORE THAN NINE SURGERIES, SPINA BIFIDA, OR REPEATED CATHERIZATIONS? NO LATEX RISK : ARE YOU FREQUENTLY EXPOSED TO LATEX PRODUCTS IN YOUR OCCUPATION?NO BMI CARE GOAL FOLLOW-UP ABOVE NORMAL BMI FOLLOW-UPEXERCISE PROMOTION: STRENGTH TRAINING ALCOHOL SCREENING DID YOU HAVE A DRINK CONTAINING ALCOHOL IN THE PAST YEAR?YES HOW OFTEN DID YOU HAVE SIX OR MORE DRINKS ON ONE OCCASION IN THE PAST YEAR?NEVER (0 POINTS) HOW MANY DRINKS DID YOU HAVE ON A TYPICAL DAY WHEN YOU WERE DRINKING IN THE PAST YEAR?3 OR 4 (1 POINT) HOW OFTEN DID YOU HAVE A DRINK CONTAINING ALCOHOL IN THE PAST YEAR?MONTHLY OR LESS (1 POINT) POINTS2 INTERPRETATIONNEGATIVE RECREATIONAL DRUG USE DRUG USE? NONE CAFFEINE CAFFEINE USE?NO SEXUAL HX HAD SEX IN THE LAST 12 MONTHS (VAGINAL, ORAL, OR ANAL)?: YES, WITH: WOMEN ONLY, HAVE YOU EVER HAD AN STD?: NO, HAD SEX IN THE LAST 12 MONTHS (VAGINAL, ORAL, OR ANAL)?: YES, WITH: WOMEN ONLY, HAVE YOU EVER HAD AN STD?: NO, HAD SEX IN THE LAST 12 MONTHS (VAGINAL, ORAL, OR ANAL)?: YES, WITH: WOMEN ONLY, HAVE YOU EVER HAD AN STD?: NO, HAD SEX IN THE LAST 12 MONTHS (VAGINAL, ORAL, OR ANAL)?: YES, WITH: WOMEN ONLY, HAVE YOU EVER HAD AN STD?: NO, HAD SEX IN THE LAST 12 MONTHS (VAGINAL, ORAL, OR ANAL)?: YES, WITH: WOMEN ONLY, HAVE YOU EVER HAD AN STD?: NO, HAD SEX IN THE LAST 12 MONTHS (VAGINAL, ORAL, OR ANAL)?: YES, WITH: WOMEN ONLY, HAVE YOU EVER HAD AN STD?: NO. HIV / HEP-C SCREENING HIV TEST OFFERED TO PATIENT:YES DATE OFFERED:03/03/2017 TEST ACCEPTED:NO HEP-C TEST OFFERED TO PATIENT:YES DATE OFFERED:03/03/2017 REASON:PATIENT DECLINED TEST ACCEPTED:NO REASON:PATIENT DECLINED SYNAGOGUE [id number] ANGLICAN LANGUAGE LANGUAGES SPOKEN:SUDANESE EDUCATION BACHELOR- MATH, BACHELOR- MATH, BACHELOR- MATH, BACHELOR- MATH, BACHELOR- MATH, BACHELOR- MATH. LEARNING BARRIERS / SPECIAL NEEDS CHANGE FROM LAST VISIT?NO BARRIERS TO LEARNING?NO HEARING IMPAIRED?NO VISION IMPAIRED?YES COGNITIVELY IMPAIRED?NO :CORRECTIVE LENSES READINESS TO LEARN?YES LEARNING PREFERENCES?NO LEARNING CAPABILITIES PRESENT?YES EMOTIONAL BARRIERS?NO SPECIAL DEVICES?NO BATTERY ASSEMBLER PLASTIC NEEDED?NO DOMESTIC VIOLENCE DO YOU FEEL SAFE IN YOUR ENVIRONMENT?YES OCCUPATION: [employer], MOVED BACK FROM [employer] WORKED IN [employer], , [employer], MOVED BACK FROM [employer] WORKED IN [employer],. DIET: REGULAR , LOW FAT, LOW CHOLESTEROL, CARBOHYDRATE CONTROLLED, REGULAR , LOW FAT, LOW CHOLESTEROL, CARBOHYDRATE CONTROLLED. EXERCISE: NO REGULAR EXERCISE, WALKS, NO REGULAR EXERCISE, WALKS. MARITAL STATUS: , . OTHERS AT HOME: SPOUSE, , SPOUSE,. PAIN CLINIC PFS, CLERGY, PUBLIC HEALTH REFERRALS PFS REFERRAL NEEDED?NO CLERGY REFERRAL NEEDED?NO PUBLIC HEALTH REFERRAL NEEDED?NO WAS THE PROVIDER NOTIFIED OF ANY PERTINENT INFO?YES N/A HAS THE PATIENT BEEN EDUCATED REGARDING HIS/HER PLAN OF CARE?YES HAS THE PATIENT BEEN EDUCATED REGARDING PAIN, THE RISK FOR PAIN, THE IMPORTANCE OF EFFECTIVE PAIN MANAGEMENT, AND THE PAIN ASSESSMENT PROCESS?YES HOUSING: OWNS HOME, , OWNS HOME,. ADVANCE DIRECTIVE ADVANCE DIRECTIVE DISCUSSED WITH PATIENT:YES PT HAS HCP-- TANIA [phone] FORM IS ON FILE HOSPITALIZATION/MAJOR DIAGNOSTIC PROCEDURE [place], [place] 2008 HERNIA REPAIR 1988 VITAL SIGNS WT 311.4 LBS, HT 70.5 IN, BMI 44.04 INDEX, BP 121/86 MM HG, HR 90 /MIN, RR 20 /MIN, TEMP 96.8 F, OXYGEN SAT % 96%, SAFE IN ENV? (Y/N) YES, NA INITIALS SC 13:52, REVIEWED BY: KG. EXAMINATION GENERAL EXAMINATION: THE PATIENT IS ALERT, ORIENTED TIMES THREE AND COOPERATIVE. HEART SHOWS REGULAR RHYTHM, NO MURMURS AND NO GALLOPS. LUNGS ARE CLEAR TO AUSCULTATION. ASSESSMENTS SPONDYLOSIS WITHOUT MYELOPATHY OR RADICULOPATHY, LUMBAR REGION - M47.816 (PRIMARY) SPONDYLOSIS WITHOUT MYELOPATHY OR RADICULOPATHY, LUMBOSACRAL REGION - M47.817 TREATMENT SPONDYLOSIS WITHOUT MYELOPATHY OR RADICULOPATHY, LUMBAR REGION SMC FACET BLOCK (PAIN)[id number] SPONDYLOSIS WITHOUT MYELOPATHY OR RADICULOPATHY, LUMBOSACRAL REGION SMC FACET BLOCK (PAIN)[id number] PROCEDURES PAIN NURSING RECORD PROCEDURE IN ROOM 1450, PHYSICIAN IN ROOM 1455, START 1500, FINISH 1505, ECG NORMAL SINUS, PATIENT SHIELDED YES, SAFETY STRAP YES, DRESSING TEGADERM LOC: 1. ALERT, ORIENTED RESP: 1. REGULAR, NO DYSPNEA COLOR: 1. PINK SKIN: 1. WARM, DRY POSITION: 1. PRONE VITALS: 142/75 74 18 97 DISCHARGE: POST PAIN 1, DRESSING SITE DRY AND INTACT, IV NONE, PATIENT DISCHARGED AT 1521 PN LUMBAR FACET BLOCK DIAGNOSTIC PRE PROCEDURE DIAGNOSIS LUMBAR SPONDYLOSIS, LUMBOSACRAL SPONDYLOSIS POST PROCEDURE DIAGNOSIS LUMBAR SPONDYLOSIS, LUMBOSACRAL SPONDYLOSIS PROCEDURE RIGHT L4-L5 AND RIGHT L5-S1 FACET BLOCK DIAGNOSTIC NUMBER [address] PRAKASH SMITH [employer] PROFESSIONAL NONE ANESTHESIA LOCAL PRE PROCEDURE NOTE THE PATIENT WITH HISTORY OF CHRONIC LOW BACK PAIN. I EVALUATED THE PATIENT AND REVIEWED THE CHART. I WENT OVER THE RISKS, ALTERNATIVES, AND BENEFITS ASSOCIATED WITH THIS PROCEDURE. THE PATIENT WOULD LIKE TO PROCEED AND GAVE CONSENT TO PERFORM THE PROCEDURE. AGREED WITH THE PATIENT WE ARE DOING THIS PROCEDURE TO DETERMINE IF THE PATIENT IS A CANDIDATE FOR A RADIOFREQUENCY ABLATION OF THE FACETS JOINTS. THE PATIENT DENIES UNEXPLAINABLE WEIGHT LOSS, FEVER, CHILLS, OR NEW CHANGES IN URINARY OR BOWEL CONTROL. THE PATIENT IS COVID-19 NEGATIVE DESCRIPTION OF PROCEDURE THE PATIENT WAS BROUGHT TO THE PROCEDURE ROOM AND PLACED IN THE PRONE POSITION. THE LUMBOSACRAL AREA WAS CLEANED WITH CHLORAPREP SOLUTION AND DRAPED ASEPTICALLY. THE PROCEDURE WAS DONE UNDER STERILE CONDITIONS. I CHECKED LATERALITY AND THE LEVEL WHERE THE PROCEDURE WAS GOING TO BE PERFORMED WITH THE PATIENT AND THE SUPPORTING STAFF AT THE MOMENT OF THE TIME OUT IN THE PROCEDURE ROOM. UNDER FLUOROSCOPIC GUIDANCE, TARGETS WERE SELECTED AT THE INTERSECTION OF THE RIGHT TRANSVERSE PROCESS OF L4, L5 AND ALA OF S1 WITH ITS RESPECTIVE SUPERIOR ARTICULAR PROCESS. LIDOCAINE WAS USED TO NUMB THE SKIN AND THE SUBCUTANEOUS TISSUE BELOW IT. SPINAL NEEDLE, 22-GAUGE, WAS ADVANCED UNDER FLUOROSCOPIC GUIDANCE AND FOLLOWING PATIENT FEEDBACK UNTIL THE TARGETS WERE REACHED. POSITION OF THE NEEDLES WAS VERIFIED WITH AP AND LATERAL VIEWS. AFTER PROPER POSITION OF THE NEEDLES WAS ACHIEVED, ISOVUE-M DYE 30%, 0.1 ML, WAS INJECTED AT EACH SITE SHOWING ADEQUATE SPREAD OF THE DYE. THEN A SOLUTION OF 0.4 ML OF BUPIVACAINE 0.25% WAS INJECTED AT EACH SITE. THERE WAS NO EVIDENCE OF BLOOD, PARESTHESIA OR CEREBROSPINAL FLUID DURING THE PROCEDURE. THE PATIENT WAS SENT TO THE RECOVERY ROOM. THE PATIENT WAS MOVING THE EXTREMITIES AND DOING WELL. THERE WAS NO COMPLICATION DURING THE PROCEDURE. EBL LESS THAN 5 ML. FLUOROSCOPY TIME WAS 18 SECONDS POST PROCEDURE NOTE THE PATIENT WILL DOCUMENT HIS PAIN LEVEL AND RESPONSE TO THIS PROCEDURE EVERY HOUR. THE PATIENT WILL BE SEEN IN A FOLLOW UP IN THE NEXT FEW WEEKS. FURTHER DETERMINATION FOR HIS CASE WILL BE DONE AT THE NEXT VISIT. INSTRUCTIONS WERE GIVEN, QUESTIONS WERE ANSWERED, AND THE PATIENT EXPRESSED UNDERSTANDING AND AGREED WITH THE PLAN. I, MARGARITA TERRY, DOCUMENTED THE ABOVE INFORMATION ACTING A SCRIBE FOR DR. SMITH. I HAVE REVIEWED THE ABOVE DOCUMENT, WRITTEN BY MARGARITA TERRY, COOK HELPER VEGETABLE, AND I VERIFY THAT IT IS ACCURATE PROCEDURE CODES 62401 INJ PARAVERT F JNT L/S 1 LEV, MODIFIERS: [place] [address]692 INJ PARAVERT F JNT L/S 2 LEV, MODIFIERS: RT DISPOSITION & COMMUNICATION FOLLOW UP F/UP WITH DIGITAL OPERATIONS ANALYST (REASON: POST LFBD #2 RT L4-L5, L5-S1) ELECTRONICALLY SIGNED BY PRAKASH SMITH MD, MD ON 03/26/2020 AT 04:53 PM EDT DISCLAIMER : THIS IS A VISIT SUMMARY EXTRACTED FROM THE [employer] CHART. IT IS NOT A COPY OF THE [employer] PROGRESS NOTE. MTDD
== END ==
LOC: M PAIN 13:45
PROVIDERS: ATTEND Anesthesiology
DX: M47.816 Spondylosis without myelopathy or radiculopathy, lumbar region (principal); M47.817 Spondylosis without myelopathy or radiculopathy, lumbosacral region
CPT/HCPCS: 64493; 64494; Q9967

== ENCOUNTER → 2020-05-02 | Outpatient (POV) | payer OTHER ==
[~2020-05-02] MED LIST changes: -ASPI81TA85 PO; +ASPI81TA86 PO; -BUPIVACAINE HCL 0.25% 30ML VIAL As Ordered ONE; -ISOVUE-M 300 61% 15ML VIAL As Ordered ONE; -LIDOCAINE 1% SDV 30ML VIAL As Ordered ONE
== END ==
LOC: M PAIN 09:00
PROVIDERS: ATTEND Nurse Practitioner Family
DX: M47.817 Spondylosis without myelopathy or radiculopathy, lumbosacral region (principal)

== ENCOUNTER → 2020-06-13 | Outpatient (CLI) | payer OTHER | LOC: M PAIN 13:33 | PROVIDERS: ATTEND Nurse Practitioner Family | DX: M47.812 Spondylosis without myelopathy or radiculopathy, cervical region (principal) ==

== ENCOUNTER → 2020-10-08 | Outpatient (CLI) | payer OTHER ==
[~2020-10-08] MED LIST changes: -AMIT25TA PO; +AMIT25TA17 PO; -BUPR150T3 PO; +BUPR150T4 PO
--- NOTE | 2020-10-11 00:58 | ECWPNPC ---
PATIENT NAME: KRYSTLE LOONEY : 1985 GENDER: MALE VISIT DATE: 10/08/2020 DISCHARGE DATE: 10/08/20 1104 VISIT LOCKED DATE TIME: PHYSICIAN: MARINA ALLISON PHYSICIAN PAGER NO: ACTIVE RESOURCE: MARINA ALLISON REASON FOR APPOINTMENT 1. POST DX [phone] HISTORY OF PRESENT ILLNESS DEPRESSION SCREENING: PHQ-2 (2015 EDITION) LITTLE INTEREST OR PLEASURE IN DOING THINGS?NOT AT ALL FEELING DOWN, DEPRESSED, OR HOPELESS?NOT AT ALL TOTAL SCORE0 GENERAL: PATIENT IS AGREEABLE TO TELEPHONE VISIT TODAY. HAD COOL RADIOFREQUENCY ON THE RIGHT L4-5, L5-S1 IN APRIL. HE IS VERY HAPPY WITH THE PAIN RELIEF HE IS RECEIVING. REPORTING UNRESOLVED SCIATIC PAIN IN THE RIGHT SIDE. PAIN IS AGGRAVATED BY GETTING IN AND OUT OF CARS. CURRENT CHRONIC PAIN MEDICATION SOMEWHAT EFFECTIVE AT REDUCING PAIN AND KEEPING HIM FUNCTIONAL. REVIEWED MRI OF THE LS-SPINE AND DISCUSSED TREATMENT OPTIONS. - -. FALL RISK SCREENING: SCREENING :ONE FALL WITHOUT INJURY IN THE PAST YEAR DID NOT SEEK MEDICAL TREATMENT. PAIN SCREENING: PATIENT HAS A COMPLAINT OF ACUTE OR CHRONIC PAIN :YES LOCATION OF PAIN:LEFT HIP, RIGHT HIP INTENSITY OF PAIN (SCALE OF 1 TO 10):7 7 HIPS, POST PROCEDURE 0-1 WHAT DOES YOUR PAIN FEEL LIKE:SHOOTING PINCHING DURATION:STEADY PAIN IS INCREASED BY:ACTIVITIES, PROLONGED STANDING LIFTING, WALKING OR STANDING PAIN IS DECREASED BY:OTHERS HOT TUB, CROUCHING, STRETCHING NURSING NOTE: - -. PAIN CENTER INTAKE QUESTIONS: DO YOU HAVE A HISTORY OF MRSA? :NO DO YOU TAKE A BLOOD THINNERS? :NO DO YOU HAVE ANY BLEEDING DISORDERS? :NO ANY NEW NUMBNESS OR WEAKNESS IN YOUR LEGS OR ARMS? :NO ANY PACEMAKER,DEFIBRILLATOR, OR DORSAL COLUMN STIMULATOR? :NO DO YOU HAVE ANY RASHES OR OPEN SORES? :NO ARE YOU ALLERGIC TO IV DYE? :NO ARE YOU DIABETIC? :NO ANY NEW PROBLEMS WITH YOUR MEDICATIONS? :NO HAVE YOU RECEIVED A VACCINE IN THE PAST 30 DAYS? :NO DO YOU PLAN TO RECEIVE A VACCINE IN THE NEXT 21 DAYS? :YES IF SO WHAT VACCINE AND WHEN? WILL CONSIDER COVID VACCINATION IF AVAILABLE. DO YOU NEED ANY PRESCRIPTION? :NO DO YOU TAKE ANY IMMUNOSUPPRESSIVE MEDICATIONS? :NO IS THERE A CHANCE YOU COULD BE ? :NO ARE YOU BREAST FEEDING? :NO CURRENT MEDICATIONS TAKING LIPITOR 20 MG TABLET 1 TABLET ORALLY ONCE A DAY TAKING [facility]S FLUTICASONE PROPIONATE 50 MCG/ACT SUSPENSION 1 SPRAY IN EACH NOSTRIL NASALLY ONCE A DAY TAKING LISINOPRIL 5 MG TABLET DIRECTED ORALLY DAILY TAKING ZITHROMAX 250 MG TABLET 1 TABLET ORALLY ONCE A DAY TAKING ALBUTEROL SULFATE HFA 108 (90 BASE) MCG/ACT AEROSOL SOLUTION 2 PUFFS INHALATION EVERY 4-6 HOURS NEEDED, NOTES: ONLY NEEDED TAKING LIDOCAINE 5 % PATCH 1 PATCH TO INTACT SKIN REMOVE AFTER 12 HOURS EXTERNALLY ONCE A DAY NEEDED 12 HRS ON AND 12 HRS OFF, NOTES: NOT ON ONLY NEEDED TAKING WRIST SPLINT RIGHT WRIST NEEDED TAKING ACCUTANE 20 MG DAILY ORAL DAILY, NOTES: 03-25-202099 TAKING TRIKAFTA 100-50-75 & 150 MG TABLET THERAPY PACK DIRECTED ORALLY DAILY, NOTES: 03-25-20 08 TAKING MULTIVITAMIN ADULT - TABLET 1 TABLET ORALLY DAILY, NOTES: 03-25-20 08 TAKING ZOLOFT 100 MG TABLET 1 TABLET ORALLY ONCE A DAY, NOTES: 03-25-20799 TAKING TIZANIDINE HCL 2 MG TABLET 1 TABLET NEEDED - TAKES 1/2 TABLET DAILY ORALLY FOR SPASMS THREE TIMES A DAY MDD3, NOTES: 03-25-202099 TAKING VOLTAREN 1 % GEL DIRECTED TRANSDERMAL TAKING LYRICA 200 MG CAPSULE 1 CAPSULE ORALLY BID MDD2, NOTES: 03-26-20 NOT-TAKING MELOXICAM 15 MG TABLET 1 TABLET PRN ORALLY ONCE A DAY, NOTES: 03-25-20 0800 NOT-TAKING TRAMADOL HCL 50 MG TABLET 1-2 TAB ORALLY EVERY 6 HRS MDD4 NOT-TAKING MAY HAVE - - TURMERIC 2 CAPSULE ORALLY DAILY NOT-TAKING ALEVE 220 MG TABLET 1 TABLET WITH FOOD OR MILK NEEDED ORALLY EVERY 12 HRS NOT-TAKING KALYDECO 150 MG TABLET 1 TABLET ORALLY TWICE DAILY NOT-TAKING MULTI VITAMIN W/D-3 - TABLET 2 TABLETS ORALLY ONCE A DAY NOT-TAKING FLUOXETINE HCL 10 MG CAPSULE 1 CAPSULE IN THE MORNING ORALLY ONCE A DAY MEDICATION LIST REVIEWED AND RECONCILED WITH THE PATIENT PAST MEDICAL HISTORY CLASSIC MIGRAINE WITH AURA ATYPICAL DEPRESSIVE DISORDER/ANXIETY/ADJUSTMENT DISORDER ATTENTION 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 SOCIAL HISTORY GENERAL: TOBACCO USE ARE YOU A:USES TOBACCO IN OTHER FORMS ALMOST QUIT, CONTUNES TO TRY ADDITIONAL FINDINGS: TOBACCO USERCHEWS TOBACCO ALSO USING NON TOBACCO CHEW VAPORNO E-CIGARETTENO SMOKING CESSATION INFORMATION GIVEN02/24/2020 LATEX QUESTIONNAIRE LATEX ALLERGY : HAVE YOU EVER DEVELOPED ANY TYPE OF REACTION AFTER HANDLING LATEX PRODUCTS SUCH RUBBER GLOVES, CONDOMS, DIAPHRAGMS, BALLOONS, SOCKS, OR UNDERWEAR?NO LATEX ALLERGY : HAVE YOU EVER DEVELOPED ANY TYPE OF REACTION DURING OR AFTER DENTAL APPOINTMENT, VAGINAL/RECTAL EXAMINATION, SURGICAL PROCEDURE, OR ANY OTHER EXPOSURE?NO LATEX RISK : HAVE YOU EVER HAD ANY DIFFICULTY BREATHING OR HIVES AFTER EATING OR HANDLING ANY FRUITS, OR VEGETABLES; SUCH KIWI, BANANAS, STONE FRUITS, OR CHESTNUTSNO LATEX RISK : DO YOU HAVE A PREVIOUS PERSONAL HISTORY OF MORE THAN NINE SURGERIES, SPINA BIFIDA, OR REPEATED CATHERIZATIONS? NO LATEX RISK : ARE YOU FREQUENTLY EXPOSED TO LATEX PRODUCTS IN YOUR OCCUPATION?NO DATE ASKED : 10/08/2020 BMI CARE GOAL FOLLOW-UP ABOVE NORMAL BMI FOLLOW-UPEXERCISE PROMOTION: STRENGTH TRAINING ALCOHOL SCREENING DID YOU HAVE A DRINK CONTAINING ALCOHOL IN THE PAST YEAR?YES HOW OFTEN DID YOU HAVE SIX OR MORE DRINKS ON ONE OCCASION IN THE PAST YEAR?NEVER (0 POINTS) HOW MANY DRINKS DID YOU HAVE ON A TYPICAL DAY WHEN YOU WERE DRINKING IN THE PAST YEAR?3 OR 4 (1 POINT) HOW OFTEN DID YOU HAVE A DRINK CONTAINING ALCOHOL IN THE PAST YEAR?MONTHLY OR LESS (1 POINT) POINTS2 INTERPRETATIONNEGATIVE RECREATIONAL DRUG USE DRUG USE? NONE CAFFEINE CAFFEINE USE?NO SEXUAL HX HAD SEX IN THE LAST 12 MONTHS (VAGINAL, ORAL, OR ANAL)?: YES, WITH: WOMEN ONLY, HAVE YOU EVER HAD AN STD?: NO, HAD SEX IN THE LAST 12 MONTHS (VAGINAL, ORAL, OR ANAL)?: YES, WITH: WOMEN ONLY, HAVE YOU EVER HAD AN STD?: NO, HAD SEX IN THE LAST 12 MONTHS (VAGINAL, ORAL, OR ANAL)?: YES, WITH: WOMEN ONLY, HAVE YOU EVER HAD AN STD?: NO, HAD SEX IN THE LAST 12 MONTHS (VAGINAL, ORAL, OR ANAL)?: YES, WITH: WOMEN ONLY, HAVE YOU EVER HAD AN STD?: NO, HAD SEX IN THE LAST 12 MONTHS (VAGINAL, ORAL, OR ANAL)?: YES, WITH: WOMEN ONLY, HAVE YOU EVER HAD AN STD?: NO, HAD SEX IN THE LAST 12 MONTHS (VAGINAL, ORAL, OR ANAL)?: YES, WITH: WOMEN ONLY, HAVE YOU EVER HAD AN STD?: NO. HIV / HEP-C SCREENING HIV TEST OFFERED TO PATIENT:YES DATE OFFERED:03/03/2017 TEST ACCEPTED:NO HEP-C TEST OFFERED TO PATIENT:YES DATE OFFERED:03/03/2017 REASON:PATIENT DECLINED TEST ACCEPTED:NO REASON:PATIENT DECLINED ANGLICAN [id number] ALEVISM LANGUAGE LANGUAGES SPOKEN:CAMEROONIAN EDUCATION BACHELOR- MATH, BACHELOR- MATH, BACHELOR- MATH, BACHELOR- MATH, BACHELOR- MATH, BACHELOR- MATH. LEARNING BARRIERS / SPECIAL NEEDS CHANGE FROM LAST VISIT?NO BARRIERS TO LEARNING?NO HEARING IMPAIRED?NO VISION IMPAIRED?YES :CORRECTIVE LENSES COGNITIVELY IMPAIRED?NO READINESS TO LEARN?YES LEARNING PREFERENCES?NO LEARNING CAPABILITIES PRESENT?YES EMOTIONAL BARRIERS?NO SPECIAL DEVICES?NO CHIEF DEPUTY CLERK/BAILIFF NEEDED?NO DOMESTIC VIOLENCE DO YOU FEEL SAFE IN YOUR ENVIRONMENT?YES OCCUPATION: [employer], MOVED BACK FROM [facility] WORKED IN [employer], , [employer], MOVED BACK FROM [facility] WORKED IN [employer],. DIET: REGULAR , LOW FAT, LOW CHOLESTEROL, CARBOHYDRATE CONTROLLED, REGULAR , LOW FAT, LOW CHOLESTEROL, CARBOHYDRATE CONTROLLED. EXERCISE: NO REGULAR EXERCISE, WALKS, NO REGULAR EXERCISE, WALKS. MARITAL STATUS: , . OTHERS AT HOME: SPOUSE, , SPOUSE,. PAIN CLINIC PFS, CLERGY, PUBLIC HEALTH REFERRALS PFS REFERRAL NEEDED?NO CLERGY REFERRAL NEEDED?NO PUBLIC HEALTH REFERRAL NEEDED?NO WAS THE PROVIDER NOTIFIED OF ANY PERTINENT INFO?YES N/A HAS THE PATIENT BEEN EDUCATED REGARDING HIS/HER PLAN OF CARE?YES HAS THE PATIENT BEEN EDUCATED REGARDING PAIN, THE RISK FOR PAIN, THE IMPORTANCE OF EFFECTIVE PAIN MANAGEMENT, AND THE PAIN ASSESSMENT PROCESS?YES HOUSING: OWNS HOME, , OWNS HOME,. ADVANCE DIRECTIVE ADVANCE DIRECTIVE DISCUSSED WITH PATIENT:YES PT HAS HCP-- TANIA [phone] FORM IS ON FILE HOSPITALIZATION/MAJOR DIAGNOSTIC PROCEDURE [place] 2008 HERNIA REPAIR 1988 REVIEW OF SYSTEMS CONSTITUTIONAL: ANY RECENT FEVER NO . CHILLS NO . WEIGHT CHANGE OF UNKNOWN REASONS NO . GASTROENTEROLOGY: NEW UNEXPLAINABLE CHANGES IN BOWEL CONTROL NO . CONSTIPATION NO . GENITOURINARY: ANY NEW CHANGE IN BLADDER CONTROL? NO . NEUROLOGY: NEW ONSET DIZZINESS OR NEUROLOGICAL CHANGES NOT MENTIONED NO . NEW NUMBNESS OR PAIN PATTERNS NOT MENTIONED AND PERTINENT TO TODAY'S VISIT NO . CARDIOLOGY: NEW CHEST PRESSURE NO . NEW CHEST PAIN NO . RESPIRATORY: UNEXPLAINABLE COUGH NO . NEW SHORTNESS OF BREATH NO . ASSESSMENTS LUMBOSACRAL SPONDYLOSIS WITH RADICULOPATHY - M47.27 (PRIMARY) SACROILIITIS, NOT ELSEWHERE CLASSIFIED - M46.1 TREATMENT LUMBOSACRAL SPONDYLOSIS WITH RADICULOPATHY NOTES: PATIENT WILL RETURN TO CLINIC VISIT IN 2 WEEKS TO REVIEW PHYSICAL EXAM AND DISCUSS TREATMENT PLAN. WE MAY WANT TO CONSIDER SACROILIAC JOINT INJECTION. CONTINUE HOME STRETCHING. TOTAL TIME SPENT DURING TELEPHONE VISIT WAS APPROXIMATELY 11 MINUTES. DISPOSITION & COMMUNICATION FOLLOW UP 2 WEEKS (REASON: PHYSICAL EXAM TO CONSIDER RIGHT SIJ) ELECTRONICALLY SIGNED BY MARGRET WEBER ON 10/10/2020 AT 01:40 PM EST DISCLAIMER : THIS IS A VISIT SUMMARY EXTRACTED FROM THE [facility] CHART. IT IS NOT A COPY OF THE [facility] PROGRESS NOTE. [place]
== END ==
LOC: M PAIN 14:00
PROVIDERS: ATTEND Nurse Practitioner Family
DX: M47.27 Other spondylosis with radiculopathy, lumbosacral region (principal); M46.1 Sacroiliitis, not elsewhere classified; G43.909 Migraine, unspecified, not intractable, without status migrainosus; R25.1 Tremor, unspecified; F17.220 Nicotine dependence, chewing tobacco, uncomplicated; Z86.59 Personal history of other mental and behavioral disorders; Z88.8 Allergy status to other drugs, medicaments and biological substances; Z79.899 Other long term (current) drug therapy

== ENCOUNTER → 2020-10-22 | Outpatient (CLI) | payer OTHER ==
[~2020-10-22] MED LIST changes: -LISI-542 PO; +LISI-898 PO
--- NOTE | 2020-10-24 01:00 | ECWPNPC ---
PATIENT NAME: KRYSTLE LOONEY : 1985 GENDER: MALE VISIT DATE: 10/22/2020 DISCHARGE DATE: 10/22/20 1506 VISIT LOCKED DATE TIME: PHYSICIAN: MARINA ALLISON PHYSICIAN PAGER NO: ACTIVE RESOURCE: MARINA ALLISON REASON FOR APPOINTMENT 1. PHYSICAL EXAM TO CONSIDER RIGHT SIJ HISTORY OF PRESENT ILLNESS GENERAL: HERE FOR FOLLOW-UP OF CHRONIC LOW BACK PAIN. AXIAL BACK PAIN IMPROVED DRAMATICALLY WITH RADIOFREQUENCY THAT HE HAD RECENTLY. CHIEF COMPLAINT IS PAIN THAT RADIATES INTO RIGHT ANTERIOR THIGH. REVIEWED MRI OF THE LS-SPINE AND DISCUSSED TREATMENT OPTIONS. PATIENT HAS A LONG HISTORY OF GENERALIZED JOINT PAIN. -. FALL RISK SCREENING: SCREENING :ONE FALL WITHOUT INJURY IN THE PAST YEAR PAIN SCREENING: PATIENT HAS A COMPLAINT OF ACUTE OR CHRONIC PAIN :YES LOCATION OF PAIN:RIGHT HIP INTENSITY OF PAIN (SCALE OF 1 TO 10):3 WHAT DOES YOUR PAIN FEEL LIKE:SHARP, TENDER CAN RADIATE TO PELVIS AND DOWN RIGHT LEG. DURATION:CONSTANT, INTERMITTENT PAIN IS INCREASED BY:ACTIVITIES WALKING, LIFTING, BENDING PAIN IS DECREASED BY:USE OF PAIN MEDICATIONS, OTHERS LAYING DOWN, STRETCHING NURSING NOTE: -. PAIN CENTER INTAKE QUESTIONS: DO YOU HAVE A HISTORY OF MRSA? :NO DO YOU TAKE A BLOOD THINNERS? :NO DO YOU HAVE ANY BLEEDING DISORDERS? :NO ANY NEW NUMBNESS OR WEAKNESS IN YOUR LEGS OR ARMS? :NO ANY PACEMAKER,DEFIBRILLATOR, OR DORSAL COLUMN STIMULATOR? :NO DO YOU HAVE ANY RASHES OR OPEN SORES? :NO ARE YOU ALLERGIC TO IV DYE? :NO ARE YOU DIABETIC? :NO ANY NEW PROBLEMS WITH YOUR MEDICATIONS? :NO HAVE YOU RECEIVED A VACCINE IN THE PAST 30 DAYS? :NO DO YOU PLAN TO RECEIVE A VACCINE IN THE NEXT 21 DAYS? :YES IF SO WHAT VACCINE AND WHEN? WILL CONSIDER COVID VACCINATION IF AVAILABLE. DO YOU NEED ANY PRESCRIPTION? :YES TIZANIDINE DO YOU TAKE ANY IMMUNOSUPPRESSIVE MEDICATIONS? :NO IS THERE A CHANCE YOU COULD BE ? :NO ARE YOU BREAST FEEDING? :NO CURRENT MEDICATIONS TAKING LIPITOR 20 MG TABLET 1 TABLET ORALLY ONCE A DAY TAKING [facility] FLUTICASONE PROPIONATE 50 MCG/ACT SUSPENSION 1 SPRAY IN EACH NOSTRIL NASALLY ONCE A DAY TAKING LISINOPRIL 5 MG TABLET DIRECTED ORALLY DAILY TAKING ZITHROMAX 250 MG TABLET 1 TABLET ORALLY ONCE A DAY TAKING ALBUTEROL SULFATE HFA 108 (90 BASE) MCG/ACT AEROSOL SOLUTION 2 PUFFS INHALATION EVERY 4-6 HOURS NEEDED, NOTES: ONLY NEEDED TAKING LIDOCAINE 5 % PATCH 1 PATCH TO INTACT SKIN REMOVE AFTER 12 HOURS EXTERNALLY ONCE A DAY NEEDED 12 HRS ON AND 12 HRS OFF, NOTES: NOT ON ONLY NEEDED TAKING WRIST SPLINT RIGHT WRIST NEEDED TAKING ACCUTANE 20 MG DAILY ORAL DAILY, NOTES: 03-25-202099 TAKING TRIKAFTA 100-50-75 & 150 MG TABLET THERAPY PACK DIRECTED ORALLY DAILY, NOTES: 03-25-20 08 TAKING MULTIVITAMIN ADULT - TABLET 1 TABLET ORALLY DAILY, NOTES: 03-25-20799 TAKING ZOLOFT 100 MG TABLET 1 TABLET ORALLY ONCE A DAY, NOTES: 03-25-20799 TAKING TIZANIDINE HCL 2 MG TABLET 1 TABLET NEEDED - TAKES 1/2 TABLET DAILY ORALLY FOR SPASMS THREE TIMES A DAY MDD3, NOTES: 03-25-202099 TAKING VOLTAREN 1 % GEL DIRECTED TRANSDERMAL TAKING LYRICA 200 MG CAPSULE 1 CAPSULE ORALLY BID MDD2, NOTES: 03-26-20 NOT-TAKING MELOXICAM 15 MG TABLET 1 TABLET PRN ORALLY ONCE A DAY, NOTES: 03-25-20 0800 NOT-TAKING TRAMADOL HCL 50 MG TABLET 1-2 TAB ORALLY EVERY 6 HRS MDD4 NOT-TAKING MAY HAVE - - TURMERIC 2 CAPSULE ORALLY DAILY NOT-TAKING ALEVE 220 MG TABLET 1 TABLET WITH FOOD OR MILK NEEDED ORALLY EVERY 12 HRS NOT-TAKING KALYDECO 150 MG TABLET 1 TABLET ORALLY TWICE DAILY NOT-TAKING MULTI VITAMIN W/D-3 - TABLET 2 TABLETS ORALLY ONCE A DAY NOT-TAKING FLUOXETINE HCL 10 MG CAPSULE 1 CAPSULE IN THE MORNING ORALLY ONCE A DAY MEDICATION LIST REVIEWED AND RECONCILED WITH THE PATIENT PAST MEDICAL HISTORY CLASSIC MIGRAINE WITH AURA ATYPICAL DEPRESSIVE DISORDER/ANXIETY/ADJUSTMENT DISORDER ATTENTION DEFICIT DISORDER WITHOUT HYPERACTIVITY CERVICAL RADICULOPATHY/NEURITIS C5-6( SINCE 2007 ON DISABILITY) CHRONIC BACK PAIN CARPAL TUNNEL SYNDROME - LEFT HAND ALLERGIC RHINITIS 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 TO LINEZOLIDE AND CLINDAMYCIN ONLY 2017 PANCREATITIS RIGHT TORN LIGAMENT IN RIGHT OBESITY HYPERTENSION ALLERGIES AMITRIPTYLINE HCL: EXCESSIVE SOMNOLENCE - SIDE EFFECTS GABAPENTIN: GETS SUICIDAL THOUGHTS - SIDE EFFECTS SOCIAL HISTORY GENERAL: TOBACCO USE ARE YOU A:USES TOBACCO IN OTHER FORMS ALMOST QUIT, CONTUNES TO TRY ADDITIONAL FINDINGS: TOBACCO USERCHEWS TOBACCO ALSO USING NON TOBACCO CHEW, REPORTS USING LESS SMOKING CESSATION INFORMATION GIVEN10/22/2020 VAPORNO E-CIGARETTENO LATEX QUESTIONNAIRE LATEX ALLERGY : HAVE YOU EVER DEVELOPED ANY TYPE OF REACTION AFTER HANDLING LATEX PRODUCTS SUCH RUBBER GLOVES, CONDOMS, DIAPHRAGMS, BALLOONS, SOCKS, OR UNDERWEAR?NO LATEX ALLERGY : HAVE YOU EVER DEVELOPED ANY TYPE OF REACTION DURING OR AFTER DENTAL APPOINTMENT, VAGINAL/RECTAL EXAMINATION, SURGICAL PROCEDURE, OR ANY OTHER EXPOSURE?NO LATEX RISK : HAVE YOU EVER HAD ANY DIFFICULTY BREATHING OR HIVES AFTER EATING OR HANDLING ANY FRUITS, OR VEGETABLES; SUCH KIWI, BANANAS, STONE FRUITS, OR CHESTNUTSNO LATEX RISK : DO YOU HAVE A PREVIOUS PERSONAL HISTORY OF MORE THAN NINE SURGERIES, SPINA BIFIDA, OR REPEATED CATHERIZATIONS? NO LATEX RISK : ARE YOU FREQUENTLY EXPOSED TO LATEX PRODUCTS IN YOUR OCCUPATION?NO DATE ASKED : 10/22/2020 ALCOHOL USE: NO. BMI CARE GOAL FOLLOW-UP ABOVE NORMAL BMI FOLLOW-UPEXERCISE PROMOTION: STRENGTH TRAINING ALCOHOL SCREENING DID YOU HAVE A DRINK CONTAINING ALCOHOL IN THE PAST YEAR?YES HOW OFTEN DID YOU HAVE SIX OR MORE DRINKS ON ONE OCCASION IN THE PAST YEAR?NEVER (0 POINTS) HOW MANY DRINKS DID YOU HAVE ON A TYPICAL DAY WHEN YOU WERE DRINKING IN THE PAST YEAR?3 OR 4 (1 POINT) HOW OFTEN DID YOU HAVE A DRINK CONTAINING ALCOHOL IN THE PAST YEAR?MONTHLY OR LESS (1 POINT) POINTS2 INTERPRETATIONNEGATIVE RECREATIONAL DRUG USE DRUG USE? NONE CAFFEINE CAFFEINE USE?NO SEXUAL HX HAD SEX IN THE LAST 12 MONTHS (VAGINAL, ORAL, OR ANAL)?: YES, WITH: WOMEN ONLY, HAVE YOU EVER HAD AN STD?: NO, HAD SEX IN THE LAST 12 MONTHS (VAGINAL, ORAL, OR ANAL)?: YES, WITH: WOMEN ONLY, HAVE YOU EVER HAD AN STD?: NO, HAD SEX IN THE LAST 12 MONTHS (VAGINAL, ORAL, OR ANAL)?: YES, WITH: WOMEN ONLY, HAVE YOU EVER HAD AN STD?: NO, HAD SEX IN THE LAST 12 MONTHS (VAGINAL, ORAL, OR ANAL)?: YES, WITH: WOMEN ONLY, HAVE YOU EVER HAD AN STD?: NO, HAD SEX IN THE LAST 12 MONTHS (VAGINAL, ORAL, OR ANAL)?: YES, WITH: WOMEN ONLY, HAVE YOU EVER HAD AN STD?: NO, HAD SEX IN THE LAST 12 MONTHS (VAGINAL, ORAL, OR ANAL)?: YES, WITH: WOMEN ONLY, HAVE YOU EVER HAD AN STD?: NO. HIV / HEP-C SCREENING HIV TEST OFFERED TO PATIENT:YES DATE OFFERED:03/03/2017 TEST ACCEPTED:NO HEP-C TEST OFFERED TO PATIENT:YES DATE OFFERED:03/03/2017 REASON:PATIENT DECLINED TEST ACCEPTED:NO REASON:PATIENT DECLINED JEHOVAH'S WITNESS [id number] [employer] LANGUAGE LANGUAGES SPOKEN:[employer] EDUCATION BACHELOR- MATH, BACHELOR- MATH, BACHELOR- MATH, BACHELOR- MATH, BACHELOR- MATH, BACHELOR- MATH. 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 DIET: REGULAR , LOW FAT, LOW CHOLESTEROL, CARBOHYDRATE CONTROLLED, REGULAR , LOW FAT, LOW CHOLESTEROL, CARBOHYDRATE CONTROLLED. EXERCISE: NO REGULAR EXERCISE, WALKS, NO REGULAR EXERCISE, WALKS. MARITAL STATUS: , . OTHERS AT HOME: SPOUSE, , SPOUSE,. HOUSING: OWNS HOME, , OWNS HOME,. REVIEW OF SYSTEMS CONSTITUTIONAL: ANY RECENT FEVER NO . CHILLS NO . WEIGHT CHANGE OF UNKNOWN REASONS NO . GASTROENTEROLOGY: NEW UNEXPLAINABLE CHANGES IN BOWEL CONTROL NO . CONSTIPATION NO . GENITOURINARY: ANY NEW CHANGE IN BLADDER CONTROL? NO . NEUROLOGY: NEW ONSET DIZZINESS OR NEUROLOGICAL CHANGES NOT MENTIONED NO . NEW NUMBNESS OR PAIN PATTERNS NOT MENTIONED AND PERTINENT TO TODAY'S VISIT NO . CARDIOLOGY: NEW CHEST PRESSURE NO . NEW CHEST PAIN NO . RESPIRATORY: UNEXPLAINABLE COUGH NO . NEW SHORTNESS OF BREATH NO . VITAL SIGNS WT 323.8 LBS, HT 70.5 IN, BMI 45.80 INDEX, BP 138/66 MM HG, HR 70 /MIN, RR 18 /MIN, TEMP 98.2 F, OXYGEN SAT % 97, SAFE IN ENV? (Y/N) YES, REVIEWED BY: [facility]. RUI RN. EXAMINATION GENERAL EXAMINATION: GENERALNO ACUTE DISTRESS, WELL NOURISHED AND HYDRATED. PSYCHAPPROPRIATE MOOD AND AFFECT . LUNGS:CLEAR TO AUSCULTATION BILATERALLY, NO WHEEZES, RHONCHI, RALES. HEART:NO MURMURS, REGULAR RATE AND RHYTHM. MUSCULOSKELETAL: TRIGGER POINTS: NOTED OVER LUMBAR PARASPINALS RIGHT GREATER THAN LEFT AREA TENDERNESS NOTED OVER BILATERAL SIJ RIGHT GREATER THAN LEFT.. 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 [facility] REASON:GENERALIZED JOINT PAIN AND SWELLING OTHERS NOTES: REVIEWED PRE-PROCEDURE INSTRUCTIONS WITH PAIENT. PATIENT VERBALIZED AN UNDERSTANDING. Delilah FABIAN RN. PROCEDURE CODES FA211 ESTABILISHED PATIENT [facility] FAC[facility] CHARGE DISPOSITION & COMMUNICATION FOLLOW UP POST PROCEDURE (REASON: LUMBAR EPIDURAL STEROID INJECTION L4-5, L5-S1/F/U ON RHEUMATOLOGY REFERRAL) ELECTRONICALLY SIGNED BY MARGRET WEBER ON 10/23/2020 AT 08:53 AM EST DISCLAIMER : THIS IS A VISIT SUMMARY EXTRACTED FROM THE [email or web address] CHART. IT IS NOT A COPY OF THE [employer] PROGRESS NOTE. PINA
== END ==
LOC: M PAIN 14:15
PROVIDERS: ATTEND Nurse Practitioner Family
DX: M51.26 Other intervertebral disc displacement, lumbar region (principal); G43.109 Migraine with aura, not intractable, without status migrainosus; F41.9 Anxiety disorder, unspecified; F32.9 Major depressive disorder, single episode, unspecified; N52.9 Male erectile dysfunction, unspecified; E66.9 Obesity, unspecified; I10 Essential (primary) hypertension; F17.220 Nicotine dependence, chewing tobacco, uncomplicated; Z68.42 Body mass index [BMI] 45.0-49.9, adult; Z79.899 Other long term (current) drug therapy; Z88.8 Allergy status to other drugs, medicaments and biological substances

== ENCOUNTER → 2020-11-17 | Outpatient (CLI) | payer OTHER | LOC: M LABSMTC 10:53 | PROVIDERS: ATTEND Anesthesiology | DX: Z20.822 Contact with and (suspected) exposure to COVID-19 (principal) ==

== ENCOUNTER → 2022-02-25 | Outpatient (CLI) | payer OTHER ==
[~2022-02-25] MED LIST changes: +BUPR150T12 PO; -BUPR150T4 PO; -LISI-898 PO; +LISI5TAB11 PO; -TERB250T12; -TERB250T12 PO; +TERB250T91; +TERB250T91 PO
== END ==
LOC: M PAIN 15:00
PROVIDERS: ATTEND Anesthesiology
DX: M47.816 Spondylosis without myelopathy or radiculopathy, lumbar region (principal); G89.29 Other chronic pain; G43.909 Migraine, unspecified, not intractable, without status migrainosus; Z86.59 Personal history of other mental and behavioral disorders; Z87.891 Personal history of nicotine dependence; Z88.8 Allergy status to other drugs, medicaments and biological substances; E66.01 Morbid (severe) obesity due to excess calories; Z68.42 Body mass index [BMI] 45.0-49.9, adult; Z79.899 Other long term (current) drug therapy

== ENCOUNTER → 2022-06-26 | Outpatient (CLI) | payer OTHER | LOC: M PAIN 09:15 | PROVIDERS: ATTEND Anesthesiology | DX: M47.816 Spondylosis without myelopathy or radiculopathy, lumbar region (principal); G43.109 Migraine with aura, not intractable, without status migrainosus; F41.9 Anxiety disorder, unspecified; F32.A Depression, unspecified; M54.12 Radiculopathy, cervical region; G56.02 Carpal tunnel syndrome, left upper limb; J30.9 Allergic rhinitis, unspecified; N52.9 Male erectile dysfunction, unspecified; E66.9 Obesity, unspecified; I10 Essential (primary) hypertension; M10.9 Gout, unspecified; Z79.891 Long term (current) use of opiate analgesic; Z79.899 Other long term (current) drug therapy; Z88.8 Allergy status to other drugs, medicaments and biological substances; Z68.42 Body mass index [BMI] 45.0-49.9, adult ==

== ENCOUNTER → 2022-09-15 | Outpatient (CLI) | payer OTHER | LOC: M TMPAIN 09:00 → M PAIN 09:00 | PROVIDERS: ATTEND Nurse Practitioner Family | DX: M47.816 Spondylosis without myelopathy or radiculopathy, lumbar region (principal); G89.29 Other chronic pain; G43.909 Migraine, unspecified, not intractable, without status migrainosus; I10 Essential (primary) hypertension; Z86.59 Personal history of other mental and behavioral disorders; Z87.891 Personal history of nicotine dependence; Z88.8 Allergy status to other drugs, medicaments and biological substances; E66.01 Morbid (severe) obesity due to excess calories; Z68.42 Body mass index [BMI] 45.0-49.9, adult; Z79.899 Other long term (current) drug therapy ==

== ENCOUNTER → 2022-11-17 | Outpatient (CLI) | payer OTHER | LOC: M PAIN 08:45 | PROVIDERS: ATTEND Nurse Practitioner Family | DX: M47.816 Spondylosis without myelopathy or radiculopathy, lumbar region (principal); G89.29 Other chronic pain; G43.909 Migraine, unspecified, not intractable, without status migrainosus; I10 Essential (primary) hypertension; Z86.59 Personal history of other mental and behavioral disorders; Z98.84 Bariatric surgery status; Z87.891 Personal history of nicotine dependence; Z88.8 Allergy status to other drugs, medicaments and biological substances; E66.01 Morbid (severe) obesity due to excess calories; Z68.41 Body mass index [BMI] 40.0-44.9, adult; Z79.899 Other long term (current) drug therapy ==

== ENCOUNTER → 2022-12-15 | Outpatient (CLI) | payer OTHER | LOC: M PAIN 08:45 | PROVIDERS: ATTEND Nurse Practitioner Family | DX: M47.816 Spondylosis without myelopathy or radiculopathy, lumbar region (principal); Z79.891 Long term (current) use of opiate analgesic; Z79.899 Other long term (current) drug therapy; E66.9 Obesity, unspecified; I10 Essential (primary) hypertension; Z68.41 Body mass index [BMI] 40.0-44.9, adult ==

== ENCOUNTER → 2023-01-16 | Outpatient (CLI) | payer OTHER ==
[~2023-01-16] MED LIST changes: +FLUT50SP17; -FLUTISP
== END ==
LOC: M PAIN 14:00
PROVIDERS: ATTEND Nurse Practitioner Family
DX: M47.816 Spondylosis without myelopathy or radiculopathy, lumbar region (principal); E66.9 Obesity, unspecified; I10 Essential (primary) hypertension; Z68.41 Body mass index [BMI] 40.0-44.9, adult; E84.9 Cystic fibrosis, unspecified; Z87.891 Personal history of nicotine dependence; Z88.8 Allergy status to other drugs, medicaments and biological substances; Z79.891 Long term (current) use of opiate analgesic; Z79.899 Other long term (current) drug therapy

== ENCOUNTER → 2023-02-06 | Outpatient (CLI) | payer OTHER | LOC: M PAIN 16:15 | PROVIDERS: ATTEND Nurse Practitioner Family | DX: M51.16 Intervertebral disc disorders with radiculopathy, lumbar region (principal); G89.29 Other chronic pain; M54.50 Low back pain, unspecified; M25.551 Pain in right hip; G43.109 Migraine with aura, not intractable, without status migrainosus; F32.A Depression, unspecified; F41.9 Anxiety disorder, unspecified; N52.9 Male erectile dysfunction, unspecified; I10 Essential (primary) hypertension; M10.9 Gout, unspecified; E84.9 Cystic fibrosis, unspecified; J30.9 Allergic rhinitis, unspecified; Z87.891 Personal history of nicotine dependence; Z79.891 Long term (current) use of opiate analgesic; Z79.899 Other long term (current) drug therapy; Z88.8 Allergy status to other drugs, medicaments and biological substances ==

== ENCOUNTER → 2023-05-26 | Outpatient (CLI) | payer OTHER ==
[~2023-05-26] MED LIST changes: -AMIT25TA17 PO; +AMIT25TA19 PO
== END ==
LOC: M PAIN 11:15
PROVIDERS: ATTEND Nurse Practitioner Family
DX: M47.27 Other spondylosis with radiculopathy, lumbosacral region (principal); G89.29 Other chronic pain; G47.30 Sleep apnea, unspecified; G43.909 Migraine, unspecified, not intractable, without status migrainosus; I10 Essential (primary) hypertension; Z86.59 Personal history of other mental and behavioral disorders; Z87.891 Personal history of nicotine dependence; Z88.8 Allergy status to other drugs, medicaments and biological substances; Z79.899 Other long term (current) drug therapy

== ENCOUNTER → 2023-10-20 | Outpatient (CLI) | payer OTHER ==
[~2023-10-20] MED LIST changes: -FLUT50SP17; +FLUTISP
== END ==
LOC: M PAIN 16:15
PROVIDERS: ATTEND Nurse Practitioner Family
DX: M47.816 Spondylosis without myelopathy or radiculopathy, lumbar region (principal); Z79.891 Long term (current) use of opiate analgesic; G43.109 Migraine with aura, not intractable, without status migrainosus; F32.A Depression, unspecified; F41.9 Anxiety disorder, unspecified; G89.29 Other chronic pain; E66.9 Obesity, unspecified; I10 Essential (primary) hypertension; Z87.891 Personal history of nicotine dependence; Z79.899 Other long term (current) drug therapy; Z88.8 Allergy status to other drugs, medicaments and biological substances; Z68.32 Body mass index [BMI] 32.0-32.9, adult

== ENCOUNTER → 2023-11-03 | Outpatient (CLI) | payer OTHER | LOC: M PAIN 14:45 | PROVIDERS: ATTEND Nurse Practitioner Family | DX: M47.816 Spondylosis without myelopathy or radiculopathy, lumbar region (principal); Z79.891 Long term (current) use of opiate analgesic; G89.29 Other chronic pain; I10 Essential (primary) hypertension; E66.9 Obesity, unspecified; M54.12 Radiculopathy, cervical region; Z87.891 Personal history of nicotine dependence; Z79.899 Other long term (current) drug therapy; Z88.8 Allergy status to other drugs, medicaments and biological substances ==

== ENCOUNTER → 2024-02-18 | Outpatient (CLI) | payer OTHER | LOC: M PAIN 14:45 | PROVIDERS: ATTEND Nurse Practitioner Family | DX: M47.816 Spondylosis without myelopathy or radiculopathy, lumbar region (principal); Z79.891 Long term (current) use of opiate analgesic; G89.29 Other chronic pain; G43.109 Migraine with aura, not intractable, without status migrainosus; E66.9 Obesity, unspecified; I10 Essential (primary) hypertension; M10.9 Gout, unspecified; M54.12 Radiculopathy, cervical region; Z87.891 Personal history of nicotine dependence; Z79.899 Other long term (current) drug therapy; Z88.8 Allergy status to other drugs, medicaments and biological substances; Z68.32 Body mass index [BMI] 32.0-32.9, adult ==

== ENCOUNTER → 2024-05-19 | Outpatient (CLI) | payer OTHER | LOC: M PAIN 15:00 | PROVIDERS: ATTEND Nurse Practitioner Family | DX: M47.816 Spondylosis without myelopathy or radiculopathy, lumbar region (principal); G89.29 Other chronic pain; G43.109 Migraine with aura, not intractable, without status migrainosus; F41.9 Anxiety disorder, unspecified; F32.A Depression, unspecified; E66.9 Obesity, unspecified; M54.12 Radiculopathy, cervical region; E84.9 Cystic fibrosis, unspecified; I10 Essential (primary) hypertension; M10.9 Gout, unspecified; Z87.891 Personal history of nicotine dependence; Z79.899 Other long term (current) drug therapy; Z68.32 Body mass index [BMI] 32.0-32.9, adult; Z88.8 Allergy status to other drugs, medicaments and biological substances ==

== ENCOUNTER → 2024-08-19 | Outpatient (CLI) | payer OTHER | LOC: M PAIN 14:15 | PROVIDERS: ATTEND Nurse Practitioner Family | DX: M47.816 Spondylosis without myelopathy or radiculopathy, lumbar region (principal); Z79.891 Long term (current) use of opiate analgesic; G89.29 Other chronic pain; M54.50 Low back pain, unspecified; G43.109 Migraine with aura, not intractable, without status migrainosus; F32.A Depression, unspecified; F41.9 Anxiety disorder, unspecified; I10 Essential (primary) hypertension; E66.9 Obesity, unspecified; M10.9 Gout, unspecified; F84.9 Pervasive developmental disorder, unspecified; Z87.891 Personal history of nicotine dependence; Z79.899 Other long term (current) drug therapy; Z88.8 Allergy status to other drugs, medicaments and biological substances; Z68.33 Body mass index [BMI] 33.0-33.9, adult ==